=== PATIENT | female | born 1965 | race Caucasian/White ===

== ENCOUNTER 2019-01-07 01:16 | Inpatient (IN) ==
[2019-01-07] MEDS ORDERED: ZOFRAN IV ONE (02:49)
[2019-01-07] MEDS ORDERED: LR 1,000 ML IV ONE (02:49)
[2019-01-07 03:14] LABS: EOS# 0.01 X1000 (0.0-0.7); EOS% 0.1 % (0.0-10.0); HEMATOCRIT 31.3 % (37.0-47.0); HEMOGLOBIN 10.7 g/dL (12.0-16.0); IMM GRAN# 0.03 X1000 (0.0-0.04); IMM GRAN% 0.3 % (0.0-0.5); LYMPH# 0.24 X1000 (1.2-3.4); LYMPH% 2.4 % (20.5-51.1); MCH 31.9 PG (27-31); MCHC 34.2 g/dL (33-37); MCV 93.4 FL (81-99); MONO% 6.1 % (1.7-9.3); MPV 9.7 FL (7.4-10.4); NEUT# 8.98 X1000 (1.4-6.5); NEUT% 91.1 % (42.2-75.2); PLT 187 X1000 (130-400); RBC 3.35 XMIL (4.2-5.4); RDW 14.9 % (11.5-14.5); WBC 9.86 X1000 (4.8-10.8)
[2019-01-07 03:18] LABS: ESTIMATED GFR > 60
[2019-01-07 03:23] LABS: AGAP 12; ALBUMIN 2.7 g/dL (3.5-5.0); ALKALINE PHOSPHATASE 167 U/L (32-104); BUN 6 mg/dL (8-22); CALCIUM 7.5 mg/dL (8.8-10.2); CHLORIDE 103 mmol/L (98-107); COSMO 281; CREATININE 0.7 mg/dL (0.5-0.9); GLUCOSE 131 mg/dL (70-104); GOT 31 U/L (10-30); GPT 15 U/L (10-36); MAGNESIUM 1.5 mg/dL (1.5-2.7); SODIUM 141 mmol/L (136-145); TCO2 26 mmol/L (25-35)
[2019-01-07 03:33] LABS: POTASSIUM 2.4 mmol/L (3.5-5.1)
--- NOTE | 2019-01-07 04:01 | PROVIDER DOCUMENTATION ---
HPI-General Adult - General Chief Complaint: Nausea/Vomiting Stated Complaint: N/V Time Seen by Provider: 01/07/19 02:47 Source: patient, family Allergies/Adverse Reactions: Patient Allergies Allergy/AdvReac Type Severity Reaction Status Date / Time No Known Allergies Allergy Verified 01/15/18 11:08 Home Medications: Home Medication List Medication Instructions Recorded Confirmed Last Taken Type Fluticasone/Salmet 250/50 INH 1 puff INH RTBID #1 inhaler 01/18/18 01/07/19 Unknown Rx [Advair 250/50 Diskus] Tiotropium [place] Inhaler 1 puff INH RTDAILY #1 inhaler 01/18/18 Unknown Rx [Spiriva] Abacavir/Dolutegravir/Lamivudi 1 ea PO DAILY 01/07/19 01/07/19 Unknown History [Triumeq Tablet] Escitalopram Oxalate [Lexapro] 5 mg PO DAILY 01/07/19 01/07/19 Unknown History Hydroxyzine Pamoate [Vistaril] 50 mg PO HS 01/07/19 01/07/19 Unknown History Omeprazole [Prilosec] 40 mg PO DAILY 01/07/19 01/07/19 Unknown History Sulfamethoxazole/Trimethoprim 1 ea PO BID 01/07/19 01/07/19 Unknown History [Sulfamethoxazole-Tmp Ds Tablet] - History of Present Illness -Gen Adult Nature of Presenting Problems: pt reports malaise, n/v/diarrhea since noon yesterday. feels weak, perhaps fev er, sl cough, sl SOB. Denies urinary sxs, CP. Follows at [facility] in [place] for HIV suppressive meds. Review of Systems - Adult - REVIEW OF SYSTEMS - ADULT Constitutional: reports: no symptoms reported, chills Eyes: reports: no symptoms reported Ears, Nose, Mouth & Throat: reports: no symptoms reported Cardiovascular: reports: no symptoms reported. denies: chest pain, edema Respiratory: reports: see HPI, cough Gastrointestinal: reports: no symptoms reported, diarrhea, vomiting. denies: abdominal pain Genitourinary: reports: no symptoms reported Musculoskeletal: reports: no symptoms reported Integumentary: reports: no symptoms reported Neurological: reports: no symptoms reported Psychiatric: reports: no symptoms reported Endocrine: reports: no symptoms reported Hematologic/Lymphatic: reports: no symptoms reported Allergic/Immunologic: reports: no symptoms reported All Other Systems: Reviewed and Negative Past History - Adult - PAST MEDICAL HISTORY-ADULT Review of Records: reports: Nursing Assessment Review, Medications Reviewed, Social history reviewed & non-contributory. Major Childhood Illnesses: reports: other (HIV since 1989) Cardiovascular: reports: denies history Respiratory: reports: asthma, COPD, pneumonia Gastrointestinal: reports: denies history Obstetrical/Gynecological: reports: denies history Genitourinary: reports: denies history Musculoskeletal: reports: denies history Neurological: reports: denies history Psychiatric: reports: anxiety Endocrine/Immune: reports: HIV/AIDS Other Conditions: reports: denies history - PRIOR SURGERIES/PROCEDURES Surgical/Procedure History: reports: appendectomy, cholecystectomy, orthopedic (extremity) (plates in the left arm) - IMMUNIZATION STATUS Childhood Immunizations: See Nurse Assessment Flu Vaccine: See Nurse Assessment - FAMILY HISTORY Family History: reviewed, not pertinent Physical Exam-General - PHYSICAL EXAM-ADULT Initial Vital Signs Reviewed: Yes (tachy, sl fever) - CONSTITUTIONAL General Appearance: mild distress, thin - EYES Eyes: PERRL/EOMI - HEAD, EARS, NOSE, MOUTH & THROAT HENMT: normocephalic/atraumatic, moist mucous membranes - NECK Neck: non-tender, full range of motion, supple - RESPIRATORY Respiratory: lungs clear, normal breath sounds, no pleuratic chest pain, no accessory muscle use - CARDIOVASCULAR Cardiovascular: normal peripheral pulses, regular rate, rhythm, no edema, no JVD , no murmur - GASTROINTESTINAL (ABDOMEN) Abdominal Exam: normal bowel sounds, non tender, soft - MUSCULOSKELETAL Extremity: normal range of motion, non-tender, no pedal edema - SKIN Integumentary: normal color, normal turgor, warm/dry - 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, grossly normal, no motor/sensory deficits - PSYCHIATRIC Psych/Mental Status: normal mood/affect, normal thought content, normal thought process, oriented x 3 Progress - PLAN OF CARE/RESULTS Progress/Plan/Lab Results: Vital Signs - 8 hr 01/07/19 01:20 Temperature 99.8 F H Pulse Rate 124 H Respiratory Rate 20 Blood Pressure 122/70 O2 Sat by Pulse Oximetry 94 L Laboratory Results - last 24 hr 01/07/19 01/07/19 01/07/19 01:35 01:35 01:35 WBC 9.86 RBC 3.35 L Hgb 10.7 L Hct 31.3 L MCV 93.4 MCH 31.9 H MCHC 34.2 RDW Std Deviation 14.9 H Plt Count 187 MPV 9.7 Immature Gran % (Auto) 0.3 Neut % (Auto) 91.1 H Lymph % (Auto) 2.[address] [place] % (Auto) 6.1 Eos % (Auto) 0.1 Baso % (Auto) 0.0 Immature Gran # (Auto) 0.03 Neut # (Auto) 8.98 H Lymph # (Auto) 0.[address] [place] # (Auto) 0.60 H Eos # (Auto) 0.01 Baso # (Auto) 0.00 Segmented Neutrophils Cancelled Band Neutrophils Cancelled Lymphocytes Cancelled Monocytes Cancelled Eosinophils Cancelled Basophils Cancelled Metamyelocytes Cancelled Myelocytes Cancelled Promyelocytes Cancelled Nucleated RBCs Cancelled Atypical Lymphocytes Cancelled Blast Cells Cancelled Hypochromia Cancelled Vacuolization Cancelled Toxic Granulation Cancelled Dohle Bodies Cancelled Large Platelets Cancelled Polychromasia Cancelled Poikilocytosis Cancelled Basophilic Stippling Cancelled Anisocytosis Cancelled Microcytosis Cancelled Macrocytosis Cancelled Spherocytes Cancelled Sickle Cells Cancelled Target Cells Cancelled Ovalocytes Cancelled Stomatocytes Cancelled [place] Bodies Cancelled Edgar Cells Cancelled Unidentified Cells Cancelled Schistocytes Cancelled Sodium 141 Potassium 2.4 L* Chloride 103 Carbon Dioxide 26 Anion Gap 12 BUN 6 L Creatinine 0.7 Estimated GFR/1.73 m2 > 60 BUN/Creatinine Ratio 9 Glucose 131 H Calculated Osmolality 281 Calcium 7.5 L Magnesium 1.5 Total Bilirubin 0.40 AST 31 H ALT 15 Alkaline Phosphatase 167 H Troponin T Total Protein 7.0 Albumin 2.7 L Globulin 4.0 Albumin/Globulin Ratio 1.0 Plasma Lactate 1.3 01/07/19 01:35 WBC RBC Hgb Hct MCV MCH MCHC RDW Std Deviation Plt Count MPV Immature Gran % (Auto) Neut % (Auto) Lymph % (Auto) [place] % (Auto) Eos % (Auto) Baso % (Auto) Immature Gran # (Auto) Neut # (Auto) Lymph # (Auto) [place] # (Auto) Eos # (Auto) Baso # (Auto) Segmented Neutrophils Band Neutrophils Lymphocytes Monocytes Eosinophils Basophils Metamyelocytes Myelocytes Promyelocytes Nucleated RBCs Atypical Lymphocytes Blast Cells Hypochromia Vacuolization Toxic Granulation Dohle Bodies Large Platelets Polychromasia Poikilocytosis Basophilic Stippling Anisocytosis Microcytosis Macrocytosis Spherocytes Sickle Cells Target Cells Ovalocytes Stomatocytes [place] Bodies [place] Cells Unidentified Cells Schistocytes Sodium Potassium Chloride Carbon Dioxide Anion Gap BUN Creatinine Estimated GFR/1.73 m2 BUN/Creatinine Ratio Glucose Calculated Osmolality Calcium Magnesium Total Bilirubin AST ALT Alkaline Phosphatase Troponin T < 0.010 Total Protein Albumin Globulin Albumin/Globulin Ratio Plasma Lactate Orders Category Date Time Status Cardiac Monitoring DIRECTED Care 01/07/19 02:47 Active Saline Loc NOW Care 01/07/19 02:47 Active CHEST-2 VIEWS [RAD] Stat Exams 01/07/19 02:49 Taken BLOOD CULTURE [BLDCUL] Stat Lab 01/07/19 02:54 Ordered CBC WITH ELECTRONIC DIFF [HEME] Stat Lab 01/07/19 01:35 Completed CD4-CD8 RATIO [HH] Stat Lab 01/07/19 03:10 Received COMPREHENSIVE METABOLIC PANEL [CHEM] Stat Lab 01/07/19 01:35 Completed LACTATE, PLASMA [CHEM] Stat Lab 01/07/19 01:35 Completed MAGNESIUM [CHEM] Stat Lab 01/07/19 01:35 Completed TROPONIN T Stat Lab 01/07/19 01:[address] W/POSS RFLX CULT [URINALYSIS] Stat Lab 01/07/19 02:49 Uncollected URINE DRUG SCREEN PL Stat Lab 01/07/19 02:49 Uncollected Lactated Ringers Inj [Lr] 1,000 ml Med 01/07/19 02:49 Discontinued IV 999 mls/hr Ondansetron [Zofran] Med 01/07/19 02:49 Discontinued 4 mg IV NOW ONE EKG [EKG] Stat Ther 01/07/19 02:48 Ordered Result Diagrams: 01/07/19 01:35 01/07/19 01:35 - EKG 1 Time of EKG reading by physician:: 03:17 EKG Read and Signed by:: Aston Benito EKG Interpretation (*Must complete 3 of following elements*): Abnormal Rate: 109 Rhythm: SINUS [place]: normal QRS: normal [place] Interval: prolonged (QTc 579) ST Wave: non-specific ST changes - XRAY 1 XRAY Study: Chest Impression: Abnormal (EP READING: NODULAR INFILTRATE RIGHT BASE.) - CONSULTS/PCP/HOSPITALIST Notification #1 *Consult/PCP/Hospitalist*: DR JOHNSON Time Discussed: 05:12 Consult Disposition: Admit Departure - Departure Date of Disposition Decision: 01/07/19 Time of Disposition Decision: 05:12 DIAGNOSIS: RLL pneumonia, Dyspnea, HIV disease, COPD exacerbation, Hypokalemia Disposition: ADMITTED INPATIENT 09 Certified Medical Emergency: Emergent Condition: Stable Referrals and Follow-Ups: None,PCP [Primary Care Provider] - - Critical Care Note This patient required my direct & personal management of CC.: No Attestation - Physician/ HAIR Attestation The physician spent face to face time with patient:: Yes Advanced Practice Provider documentation review:: Supervising physician onsite and consulted in the evaluation and care of this patient. The physician did have a face to face encounter with the patient.
[2019-01-07] MEDS ORDERED: POTASSIUM CHLORIDE 40 MEQ/SWI 40 MEQ/100 ML IVPB IV ONE (04:08)
[2019-01-07] MEDS ORDERED: VANCOMYCIN 1 GM/NS 1 GM/250 ML IVPB IV ONE (04:40)
[2019-01-07] MEDS ORDERED: ZOSYN 3.375 GM in NS 50 ML IV ONE (04:40)
--- NOTE | 2019-01-07 04:46 | EKG Report ---
Test Performed on : 01/07/2019 03:14:36 AM Test Reason : sob, nausea Blood Pressure : / mmHG Vent. Rate : 109 BPM Atrial Rate : 109 BPM P-R Int : 132 ms QRS Dur : 090 ms QT Int : 430 ms P-R-T Axes : 072 033 073 degrees QTc Int : 579 ms Sinus tachycardia. Nonspecific ST and T wave abnormality Prolonged QT Abnormal ECG When compared with ECG of 23-SEP-2018 20:35, No significant change was found Unconfirmed Result
[2019-01-07] MEDS ORDERED: NS 1,000 ML IV ONE ×2 (05:11→08:45)
[2019-01-07] MEDS ORDERED: PERCOCET-5 PO ONE (05:25)
[2019-01-07] MEDS ORDERED: POTASSIUM CHLORIDE 20 MEQ in LR 1,000 ML IV ONE (05:27)
[2019-01-07] MEDS ORDERED: ZOFRAN IV PRN (05:27)
--- NOTE | 2019-01-07 06:13 | Diag Imaging Result Doc PS360 ---
EXAM: CHEST-2 VIEWS HISTORY: short of breath TECHNIQUE: Chest two views COMPARISON: 12/04/2017 FINDINGS: The lungs are hyperexpanded. Increased AP diameter to the chest. The heart is not enlarged. The vessels are small. There are no infiltrates. No pleural effusions. IMPRESSION: Emphysema. Follow-up films suggested if symptoms persist to ensure there is no right basilar infiltrate. Electronically signed by Eliel Plunkett 01/07/2019 6:11 AM
[2019-01-07 06:41] LABS: BILIRUBIN URINE NEGATIVE (NEGATIVE); BLOOD URINE NEGATIVE (NEGATIVE); CLARITY CLEAR (CLEAR); COLOR YELLOW; GLUCOSE URINE NEGATIVE (NEGATIVE); KETONE URINE NEGATIVE (NEGATIVE); LEUKOCYTES URINE 1+ (NEGATIVE); NITRITE URINE NEGATIVE (NEGATIVE); PH URINE 6.5; PROTEIN URINE 1+(30 mg/dL) mg/dL (NEGATIVE); URINE RBC <10 /HPF (<10); UROBILINOGEN URINE NORMAL
[2019-01-07 06:42] LABS: URINE BACTERIA 1+ /HFP; URINE CAST NONE SEEN /LPF; URINE CRYSTAL NONE SEEN /HPF; URINE EPITHELIAL CELLS >10 /HPF (<10); URINE SOURCE CLEAN CATCH; URINE YEAST PRESENT /HPF
[2019-01-07 06:43] LABS: UR AMPHETAMINES QUAL NONE DETECTED (NONE DETECT); UR BARBITUATES QUAL NONE DETECTED (NONE DETECT); UR BENZODIAZEPIN QUAL NONE DETECTED (NONE DETECT); UR CANNABINOIDS QUAL NONE DETECTED (NONE DETECT); UR COCAINE QUAL PRESUMPTIVE POSITIVE (NONE DETECT); UR METHADONE QUAL NONE DETECTED (NONE DETECT); UR METHAMPHETAMINE QUAL NONE DETECTED (NONE DETECT); UR OPIATES QUAL NONE DETECTED (NONE DETECT); UR OXYCODONE QUAL NONE DETECTED (NONE DETECT); UR PCP QUAL NONE DETECTED (NONE DETECT); UR PROPOXYPHENE QUAL NONE DETECTED (NONE DETECT); UR TCA QUAL NONE DETECTED (NONE DETECT)
[2019-01-07] MEDS: TYLENOL PO PRN ×2 (07:02→15:22)
[2019-01-07] MEDS: TORADOL IV PRN (07:02)
[2019-01-07] MEDS: DUONEB (A & A) INH SCH ×5 (07:20→23:43)
[2019-01-07] MEDS ORDERED: VANCOMYCIN IV PER PHARMACY MISC SCH (09:00)
[2019-01-07 09:40] LABS: BASO# 0.01 X1000 (0.0-0.2); BASO% 0.1 % (0.0-0.8); EOS# 0.06 X1000 (0.0-0.7); EOS% 0.5 % (0.0-10.0); HEMATOCRIT 28.5 % (37.0-47.0); HEMOGLOBIN 9.6 g/dL (12.0-16.0); IMM GRAN# 0.03 X1000 (0.0-0.04); IMM GRAN% 0.3 % (0.0-0.5); LYMPH# 0.22 X1000 (1.2-3.4); MCHC 33.7 g/dL (33-37); MONO# 0.16 X1000 (0.11-0.59); MONO% 1.4 % (1.7-9.3); MPV 9.5 FL (7.4-10.4); NEUT# 10.66 X1000 (1.4-6.5); NEUT% 95.7 % (42.2-75.2); PLT 155 X1000 (130-400); WBC 11.14 X1000 (4.8-10.8)
--- NOTE | 2019-01-07 09:59 | HISTORY AND PHYSICAL ---
PRIMARY CARE PHYSICIAN: Listed as none. Followed at the [facility] in [place] for her HIV suppressive medications. CHIEF COMPLAINT: Nausea, vomiting, diarrhea, fever, chills, and body aches that began 2 days ago and progressively worsened. HISTORY OF PRESENTING ILLNESS: This is a 53-year-old female who presents to [facility] ER with complaints of nausea, vomiting, diarrhea, fever, chills, body aches, weakness for the past couple of days that progressively worsened. She is noted to be HIV positive and is followed at the [facility] in [place], but also has a history of being medically noncompliant. She also has a history of cocaine abuse, and her drug screen is currently presumptive positive for cocaine. When she arrived to the emergency room, she had a temperature of 99.8 degrees. This morning around 7 a.m., she had a temperature of 101.6 degrees, heart rate of 117. She is saturating 94% to 95% on room air. Her laboratory data showed a potassium of 2.4. Her plasma lactate was 1.3. White blood cell count of 9.86. Urinalysis was negative. Her chest x-ray was read by ER physician as a right lower lobe pneumonia. Radiology read it as an impression of emphysema, with followup films suggested if symptoms persist, to ensure there is no right basilar infiltrate. When she arrived around 1:20 a.m., her blood pressure was 122/70. This morning, we obtained a manual blood pressure of 80/48. She was initially admitted to the medical unit here at [place], but we are now going to transfer her to the intensive care unit. I am giving 1 L of normal saline bolus at this time, and will continue to monitor. PAST MEDICAL HISTORY: HIV positive, medical noncompliance, cocaine dependence, and depression. PAST SURGICAL HISTORY: Appendectomy, cholecystectomy, and an ORIF of left arm. FAMILY HISTORY: Reviewed and noncontributory. SOCIAL HISTORY: She lives with a friend. Smokes a pack of cigarettes a day. Denies any alcohol use, and last used cocaine 3 to 4 days ago, but states this is not a daily use for her and is the first time she has used in several months. ALLERGIES: She has no known drug allergies. HOME MEDICATIONS: She takes Triumeq 600 mg/50/300 p.o. daily, Lexapro 5 mg p.o. daily, Advair 250/50 one inhalation b.i.d., Vistaril 50 mg p.o. at bedtime will be held, omeprazole 40 mg p.o. daily. We will hold her Bactrim DS b.i.d., and confirm her Spiriva dosage. IMAGING AND LABORATORY DATA: Laboratory data showed a white blood cell count of 9.86, a hemoglobin of 10.7, hematocrit 31.3, platelets 187,000. Sodium 141, potassium 2.4, chloride 103, CO2 of 26, BUN of 6, creatinine 0.7, glucose 131. Magnesium of 1.5. Troponin less than 0.010 with plasma lactate of 1.3. Urinalysis was negative. Urine drug screen was presumptive positive for cocaine. Chest x-ray per ER physician was read as a right lower lobe pneumonia. Radiology read showed an impression of emphysema. Followup films suggested if symptoms persist to ensure that there is no right basilar infiltrate. EKG: Sinus tachycardia at 109. REVIEW OF SYSTEMS: She was positive for subjective fever, chills, body aches. Denied any chest pain. No cough or shortness of breath. She did have nausea, vomiting, and diarrhea. Denied any burning or hurting with urination. PHYSICAL EXAMINATION: VITAL SIGNS: On arrival, she had a temperature of 99.8 degrees, pulse 124, respirations 20, blood pressure 122/70, saturating 94% on room air. Currently, a manual blood pressure shows 80/48 with a heart rate of 120, saturating 95% on room air. GENERAL: This is a 53-year-old female, lying in the bed, answers questions appropriately. HEENT: Normocephalic, atraumatic. Normal ENT inspection. Oropharynx and nares are clear. Eyes: Pupils are equal, round, and reactive to light and accommodation. Extraocular movements are intact. NECK: Normal inspection. Normal range of motion. LUNGS: Clear to auscultation bilaterally with equal lung expansion and chest wall movement. HEART: Regular rate and rhythm. No murmurs, rubs, or gallops. ABDOMEN: Soft, nontender, nondistended. Bowel sounds are present x4 quadrants. MUSCULOSKELETAL: She has 5/5 strength x4 extremities. NEUROLOGICAL: Cranial nerves II through XII appear grossly intact. ASSESSMENT: 1. Sepsis. 2. Right lower lobe pneumonia. 3. Hypokalemia. 4. Hypotension. 5. Human immunodeficiency virus positive. 6. Cocaine abuse. 7. Medical noncompliance. 8. Tobacco abuse. PLAN: She was initially admitted to the medical unit at [place]. We are now going to transfer her to the intensive care unit. O2 per protocol. We are checking an HIV genotype, HIV-1 RNA, and urine culture. Will recheck a CBC, BMP. We are going to check a CT of the thorax without contrast today. We are going to give her a bolus of normal saline 1000 mL x1 now, then at 150 mL an hour. Will recheck blood pressure once the bolus is completed. Will give her Zosyn 3.375 grams IV every 6 hours, vancomycin per pharmacy protocol, DuoNebs every 4 hours. Continue home medications as previously identified. We are also going to check a hepatitis profile. Dictated by MADHAVI Gutierrez for Willy Hammonds MD Addendum: Addendum: Patient seen and examined by myself. Agree with MADHAVI note. It reflects my assessment and plan. Patient is being admitted to hospital for sepsis. She has developed septic shock so her blood pressure is 80/60. Will start broad spectrum antibiotics. Her WBC is not reliable because of HIV. Will start IV fluids. Will check CD3/CD4 and viral load. Will send her to ICU for better monitoring. cc: MADHAVI Gutierrez MD [facility]LANDShannon
--- NOTE | 2019-01-07 10:42 | Diag Imaging Result Doc PS360 ---
EXAM: CT THORAX W/O CONTRAST HISTORY: pna TECHNIQUE: CT chest without contrast COMPARISON: 01/15/2018 FINDINGS: No pleural effusions. No cardiomegaly. No thoracic aortic aneurysm. Mild to moderate atherosclerosis. There are small mediastinal nodes. Severe emphysema. No consolidation. Resolution of the prior infiltrates. Minimal increased interstitial markings in the lower lungs likely representing minimal scarring. Limited images through the upper abdomen reveal fatty infiltration of the liver and a nonobstructing right upper pole renal stone. IMPRESSION: Severe emphysema. No definite pneumonia. This exam was performed using automated exposure control, adjustment of mA or kV according to patient size, and/or use of iterative reconstruction technique. Electronically signed by Eliel Plunkett 01/07/2019 10:40 AM
[2019-01-07 11:22] LABS: ESTIMATED GFR > 60
[2019-01-07 11:24] LABS: AGAP 15; BUN 8 mg/dL (8-22); CALCIUM 7.1 mg/dL (8.8-10.2); CHLORIDE 103 mmol/L (98-107); COSMO 277; CREATININE 0.9 mg/dL (0.5-0.9); GLUCOSE 121 mg/dL (70-104); SODIUM 139 mmol/L (136-145); TCO2 22 mmol/L (25-35)
[2019-01-07 11:29] LABS: POTASSIUM 2.6 mmol/L (3.5-5.1)
[2019-01-07 12:01] LABS: ANISOCYTOSIS 1+; BANDS 4 % (0-1); LYMPHS 4 % (21-51); MONO 3 % (1-9); SEGS 89 % (42-75)
[2019-01-07] MEDS: NS 1,000 ML IV SCH (14:11)
[2019-01-07] MEDS: ZOSYN 3.375 GM in NS 50 ML IV SCH ×2 (14:11→21:32)
[2019-01-07] MEDS: LEXAPRO PO SCH (14:11)
[2019-01-07] MEDS: PATIENT'S OWN MED PO SCH (14:11)
[2019-01-07] MEDS ORDERED: NS 500 ML IV ONE (15:15)
[2019-01-07] MEDS: POTASSIUM CHLORIDE 60 MEQ in NS 500 ML IV SCH (15:30)
[2019-01-07 15:43] LABS: BE -1.4 mmoll (-3.0-3.0); BLOOD TYPE ARTERIAL; HCO3-(ACT) 23.8 mmoll (20.0-26.0); METHB 0.1 % (0.0-1.5); O2(CT) 12.2 mL/dL (15.0-23.0); O2HB 93.6 % (95.0-99.0); PCO2(98.6) 32 mmHg (35-45); PO2(98.6) 70 mmHg (60-100); SAMPLE BLOOD; SAO2 94.4 % (95.0-100.0); THB 9.2 g/dL (11.5-17.4); pH(98.6) 7.45 (7.35-7.45)
[2019-01-07 15:45] LABS: ALLEN TEST YES; MODALITY ROOM AIR
[2019-01-07] MEDS ORDERED: LEVOPHED 8 MG in D5 1/2 NS 250 ML IV SCH (16:45)
[2019-01-07] MEDS: ADVAIR 250/50 DISKUS INH SCH (20:10)
[2019-01-08] MEDS: NS 1,000 ML IV SCH ×4 (00:22→20:17)
[2019-01-08] MEDS: ZOSYN 3.375 GM in NS 50 ML IV SCH ×4 (02:55→20:20)
[2019-01-08] MEDS: DUONEB (A & A) INH SCH ×5 (03:40→20:20)
[2019-01-08] MEDS: POTASSIUM CHLORIDE 60 MEQ in NS 500 ML IV SCH (03:52)
[2019-01-08] MEDS: VANCOMYCIN 1 GM/NS 1 GM/250 ML IVPB IV SCH (06:00)
[2019-01-08] MEDS: PRILOSEC PO SCH (06:00)
[2019-01-08 06:27] LABS: BE -5.4 mmoll (-3.0-3.0); BLOOD TYPE ARTERIAL; HCO3-(ACT) 20.7 mmoll (20.0-26.0); O2(CT) 11.9 mL/dL (15.0-23.0); O2HB 94.5 % (95.0-99.0); PCO2(98.6) 31 mmHg (35-45); PO2(98.6) 76 mmHg (60-100); SAMPLE BLOOD; SAO2 95.1 % (95.0-100.0); THB 8.9 g/dL (11.5-17.4); pH(98.6) 7.39 (7.35-7.45)
[2019-01-08 06:28] LABS: ALLEN TEST YES; MODALITY ROOM AIR
[2019-01-08] MEDS: TORADOL IV PRN ×2 (06:38→20:16)
[2019-01-08 07:44] LABS: BASO# 0.01 X1000 (0.0-0.2); BASO% 0.2 % (0.0-0.8); EOS# 0.11 X1000 (0.0-0.7); EOS% 2.1 % (0.0-10.0); HEMATOCRIT 28.4 % (37.0-47.0); HEMOGLOBIN 9.1 g/dL (12.0-16.0); IMM GRAN# 0.01 X1000 (0.0-0.04); IMM GRAN% 0.2 % (0.0-0.5); LYMPH# 0.47 X1000 (1.2-3.4); LYMPH% 9.1 % (20.5-51.1); MCH 31.2 PG (27-31); MCV 97.3 FL (81-99); MONO# 0.38 X1000 (0.11-0.59); MONO% 7.4 % (1.7-9.3); MPV 10.1 FL (7.4-10.4); NEUT# 4.18 X1000 (1.4-6.5); PLT 136 X1000 (130-400); RBC 2.92 XMIL (4.2-5.4); RDW 15.1 % (11.5-14.5); WBC 5.16 X1000 (4.8-10.8)
[2019-01-08 07:45] LABS: ESTIMATED GFR > 60
[2019-01-08 08:02] LABS: AGAP 9; BUN 7 mg/dL (8-22); CHLORIDE 116 mmol/L (98-107); COSMO 286; CREATININE 0.7 mg/dL (0.5-0.9); GLUCOSE 83 mg/dL (70-104); POTASSIUM 2.6 mmol/L (3.5-5.1); SODIUM 145 mmol/L (136-145); TCO2 20 mmol/L (25-35)
[2019-01-08 08:03] LABS: CALCIUM 6.4 mg/dL (8.8-10.2)
[2019-01-08] MEDS: ADVAIR 250/50 DISKUS INH SCH ×2 (08:17→20:20)
[2019-01-08] MEDS: LEXAPRO PO SCH (09:38)
[2019-01-08] MEDS: PATIENT'S OWN MED PO SCH (09:38)
[2019-01-08] MEDS ORDERED: CALCIUM GLUCONATE 2 GM in NS 100 ML IV ONE (10:00)
[2019-01-08 10:09] LABS: INR 1.29; PROTIME 16.7 Seconds (11.0-16.0)
[2019-01-08] MEDS: POTASSIUM CHLORIDE IV SCH ×2 (10:10→17:59)
[2019-01-08] MEDS: NS IV SCH ×2 (10:10→17:59)
--- NOTE | 2019-01-08 10:20 | PROGRESS NOTE ---
DATE: 01/08/2019 SUBJECTIVE: Patient reports feeling fine. Denies any fever or chills. OBJECTIVE: Vital Signs: Temperature 98.6 degrees, heart rate 80, respiratory rate 21, blood pressure 113/62, O2 saturation 96% on room air. General Examination: This is a chronically ill- looking, very malnourished, 53-year-old, female lying in bed, in no acute distress. HEENT: Head is normocephalic and atraumatic. Mucous membranes are dry. Neck: No JVD noted. No carotid bruits. No lymphadenopathy. No thyromegaly. Cardiovascular Examination: S1 and S2 heard. No murmurs, gallops, or rubs. Regular rate and rhythm. Respiratory Examination: Clear bilaterally to auscultation. Decreased breath sounds globally. The patient is not using any accessory muscles or having work of breathing. Abdomen: Soft, nontender to palpation. Bowel sounds present. No organomegaly. Extremities: No clubbing, cyanosis, or edema. Peripheral pulses in both legs. Neurological Examination: The patient is alert and oriented x3. Moves 4 extremities. Laboratory Data: White cell count 5.16, hemoglobin 9.1, hematocrit 28.4, platelets 136,000. The ABG shows pH of 7.39 with pCO2 31 and PO2 of 76. Potassium 2.6, calcium 6.4. ASSESSMENT AND PLAN: 1. Septic shock secondary to right lower lobe pneumonia. Patient's vasopressors (in this case, Levophed) had been stopped yesterday. She is on intravenous fluids at 150 mL per hour. We are going to decrease it to 75 mL per hour considering that this patient's weight is 96 pounds only. We do not want to overload her. The patient currently is on vancomycin and Zosyn. White cell count is within normal limits today. We will continue with the same management. 2. Hypokalemia. The patient has been having diarrhea and that explains why she has low potassium. She received, yesterday, 60 mEq of potassium intravenously. Potassium is still 2.6. We will provide 2 packs of 60 mEq of potassium every 8 hours. We will check BMP tomorrow. 3. Human immunodeficiency virus infection. We have ordered CD3, CD4 count and viral load too. The patient apparently is not on any medications for human immunodeficiency virus. We will continue to monitor. 4. Cocaine abuse. Aware. 5. Medical noncompliance. Aware. 6. Tobacco abuse. Aware. 7. Disposition. At this point, we are going to monitor this patient closely here in the intensive care unit. cc: Willy Hammonds MD
[2019-01-08] MEDS ORDERED: CALCIUM GLUCONATE ONE (12:04)
[2019-01-08] MEDS ORDERED: NS 250 ML ONE (12:12)
[2019-01-08 12:51] LABS: HEPATITIS PROFILE ACUTE SEE COMMENTS
[2019-01-08 16:24] LABS: C DIFF TOXIN PL NEGATIVE (NEGATIVE)
[2019-01-08] MEDS: NON-FORMULARY MED PO SCH (16:51)
[2019-01-08] MEDS: MYCOSTATIN SUSP PO SCH ×2 (16:52→20:17)
[2019-01-09] MEDS: DUONEB (A & A) INH SCH ×7 (00:10→22:34)
[2019-01-09] MEDS: ZOSYN 3.375 GM in NS 50 ML IV SCH (03:00)
[2019-01-09 06:20] LABS: BASO# 0.01 X1000 (0.0-0.2); BASO% 0.3 % (0.0-0.8); EOS# 0.12 X1000 (0.0-0.7); EOS% 3.8 % (0.0-10.0); ESTIMATED GFR > 60; HEMATOCRIT 24.5 % (37.0-47.0); HEMOGLOBIN 7.9 g/dL (12.0-16.0); IMM GRAN# 0.01 X1000 (0.0-0.04); IMM GRAN% 0.3 % (0.0-0.5); MCH 31.3 PG (27-31); MCHC 32.2 g/dL (33-37); MCV 97.2 FL (81-99); MONO# 0.28 X1000 (0.11-0.59); MONO% 8.9 % (1.7-9.3); MPV 9.9 FL (7.4-10.4); NEUT# 2.21 X1000 (1.4-6.5); NEUT% 70.7 % (42.2-75.2); RBC 2.52 XMIL (4.2-5.4); RDW 15.6 % (11.5-14.5); WBC 3.13 X1000 (4.8-10.8)
[2019-01-09 06:26] LABS: AGAP 7; BUN 5 mg/dL (8-22); CALCIUM 6.6 mg/dL (8.8-10.2); CHLORIDE 122 mmol/L (98-107); COSMO 288; CREATININE 0.6 mg/dL (0.5-0.9); GLUCOSE 73 mg/dL (70-104); POTASSIUM 3.3 mmol/L (3.5-5.1); SODIUM 147 mmol/L (136-145); TCO2 18 mmol/L (25-35)
[2019-01-09 06:30] LABS: PLT 87 X1000 (130-400)
[2019-01-09] MEDS: PRILOSEC PO SCH (06:30)
[2019-01-09] MEDS: VANCOMYCIN 1 GM/NS 1 GM/250 ML IVPB IV SCH (06:31)
[2019-01-09] MEDS: NS 1,000 ML IV SCH ×2 (06:37→13:37)
[2019-01-09] MEDS ORDERED: NS IV ONE (08:00)
[2019-01-09] MEDS ORDERED: CALCIUM GLUCONATE 2 GM in NS 100 ML IV ONE (08:00)
[2019-01-09] MEDS ORDERED: POTASSIUM CHLORIDE IV ONE (08:00)
[2019-01-09] MEDS: ADVAIR 250/50 DISKUS INH SCH ×2 (08:12→19:11)
[2019-01-09] MEDS: NON-FORMULARY MED PO SCH (09:09)
[2019-01-09] MEDS: TUMS EXTRA STRENGTH PO SCH ×3 (09:09→18:57)
[2019-01-09] MEDS: MYCOSTATIN SUSP PO SCH ×4 (09:09→21:12)
[2019-01-09] MEDS: LEXAPRO PO SCH (09:17)
--- NOTE | 2019-01-09 09:56 | PROGRESS NOTE ---
DATE: 01/09/2019 SUBJECTIVE: The patient reports feeling fine. Sometimes she reports feeling mildly short of breath. No fever or chills noted. OBJECTIVE: Vital Signs: Temperature 97.9 degrees, heart rate 84, respiratory rate 20, blood pressure 133/83, O2 saturation 100% on room air. General: This is a chronically ill-appearing, very malnourished, and disheveled, 53-year-old, female, looking older than her stated age, lying in bed in no acute distress. HEENT: Head is normocephalic, atraumatic. Mouth is a little bit dry. Neck: No JVD noted. No carotid bruits. No lymphadenopathy. No thyromegaly. Cardiovascular: S1, S2 heard. No murmurs, gallops, or rubs. Regular rate and rhythm. Respiratory: Decreased breath sounds globally. Minimal coarse breath sounds in both pulmonary bases. Patient not using any accessory muscles or having work of breathing. Abdomen: Soft, nontender to palpation. Bowel sounds present. No organomegaly. Extremities: No clubbing, cyanosis, or edema. Peripheral pulses present in both legs. Neurological: The patient is alert and oriented x3. Moves 4 extremities. LABORATORY DATA: CBC shows white cell count 3.13, hemoglobin 7.9, hematocrit 24.5, platelets 87,000. INR was 1.29. BMP shows potassium 3.3, sodium 147, creatinine 0.6, calcium 6.6. ASSESSMENT AND PLAN: 1. Sepsis secondary to right lower lobe pneumonia. The patient, at admission, was treated for right lower lobe pneumonia as per emergency room physician. The x-rays show emphysema, and the CT of the chest shows also severe emphysema, but no definite pneumonia. Considering she has a mildly elevated white cell count and she was very short of breath, we decided to start the patient on vancomycin and Zosyn. Clinically, this patient looks stable, although sometimes she complains of shortness of breath. At this point, she is on normal saline at 75 mL per hour. Considering her weight and fluids provided we are going to stop fluids. 2. Human immunodeficiency virus infection. We have checked CD3, C4, and CD8. Unfortunately, those numbers are very low. Actually, CD4 count absolute is 2, with absolute CD8 of 190. We also have checked viral load, and it is greater than 600,000 copies. Considering also that all 3 lines, including white cell count, hemoglobin, and platelets are going down, I think bone marrow can be compromised because of this uncontrolled human immunodeficiency virus infection because of not being compliant with medication. I prefer to send this patient to [facility] to be evaluated by Infectious Disease and also Hematology/Oncology. I do not think this patient needs to go to an intensive care unit bed. 3. Hypokalemia. According to the patient, she has had diarrhea profuse for the last 2 days. I think that explains the hypokalemia. We have repeated potassium yesterday with 60 mEq intravenously twice daily. The potassium is still low. At this point, I am planning to replete it with 60 mEq more that is going to be diluted in 1 liter of normal saline. 4. Thrombocytopenia. As we mentioned before, all blood lines are getting down. Considering that this patient has been on Zosyn, we are going to stop this medication and change it to cefepime, and will go from there. 5. Cocaine abuse. Aware. 6. Tobacco abuse. Aware. 7. Disposition. At this point, the patient is going to be transferred to a regular floor while waiting for a bed in [facility]. cc: Willy Hammonds MD MTDD
[2019-01-09] MEDS: MAXIPIME 1 GM in NS 50 ML IV SCH ×2 (10:12→21:12)
[2019-01-09] MEDS ORDERED: LASIX IV ONE (13:35)
[2019-01-10] MEDS: DUONEB (A & A) INH SCH ×6 (03:16→23:21)
[2019-01-10 06:12] LABS: AGAP 10; BUN 4 mg/dL (8-22); CALCIUM 7.3 mg/dL (8.8-10.2); CHLORIDE 109 mmol/L (98-107); COSMO 282; CREATININE 0.6 mg/dL (0.5-0.9); ESTIMATED GFR > 60; GLUCOSE 72 mg/dL (70-104); SODIUM 144 mmol/L (136-145); TCO2 25 mmol/L (25-35)
[2019-01-10 06:15] LABS: BASO# 0.01 X1000 (0.0-0.2); BASO% 0.3 % (0.0-0.8); EOS# 0.18 X1000 (0.0-0.7); EOS% 5.7 % (0.0-10.0); HEMATOCRIT 26.4 % (37.0-47.0); HEMOGLOBIN 8.4 g/dL (12.0-16.0); IMM GRAN# 0.01 X1000 (0.0-0.04); IMM GRAN% 0.3 % (0.0-0.5); LYMPH# 0.71 X1000 (1.2-3.4); LYMPH% 22.3 % (20.5-51.1); MCH 30.5 PG (27-31); MCHC 31.8 g/dL (33-37); MONO% 12.6 % (1.7-9.3); MPV 10.1 FL (7.4-10.4); NEUT# 1.87 X1000 (1.4-6.5); NEUT% 58.8 % (42.2-75.2); PLT 116 X1000 (130-400); RBC 2.75 XMIL (4.2-5.4); RDW 15.3 % (11.5-14.5); WBC 3.18 X1000 (4.8-10.8)
[2019-01-10] MEDS: VANCOMYCIN 1 GM/NS 1 GM/250 ML IVPB IV SCH (06:20)
[2019-01-10] MEDS: PRILOSEC PO SCH (06:20)
[2019-01-10] MEDS ORDERED: POTASSIUM CHLORIDE IV ONE (07:17)
[2019-01-10] MEDS ORDERED: NS IV ONE (07:17)
[2019-01-10] MEDS ORDERED: CALCIUM GLUCONATE 2 GM in NS 100 ML IV ONE (07:18)
[2019-01-10] MEDS: ADVAIR 250/50 DISKUS INH SCH ×2 (08:30→19:44)
[2019-01-10] MEDS: LEXAPRO PO SCH (08:32)
[2019-01-10] MEDS: MYCOSTATIN SUSP PO SCH ×4 (08:32→22:46)
[2019-01-10] MEDS: NON-FORMULARY MED PO SCH (08:32)
[2019-01-10] MEDS: TUMS EXTRA STRENGTH PO SCH ×4 (08:32→16:57)
--- NOTE | 2019-01-10 09:01 | PROGRESS NOTE ---
DATE: 01/10/2019 SUBJECTIVE: Patient reports feeling fine. Denies any fever or chills. OBJECTIVE: Vital Signs: Temperature 97.9 degrees, heart rate 116, respiratory 17, blood pressure 131/82, O2 saturation 100% on room air. General: This is a chronically ill appearing, very malnourished 53-year-old female, disheveled, lying in bed, in no acute distress. HEENT: Head is normocephalic, atraumatic Mucous membranes dry. Neck: No JVD noted. No carotid bruits. No lymphadenopathy. No thyromegaly. Cardiovascular: S1, S2 heard. No murmurs, gallops, or rubs. Regular rate and rhythm. Respiratory: Decreased breath sounds globally with minimal coarse breath sounds in both pulmonary bases. Patient is not using any accessory muscles or having work of breathing. Abdomen: Soft, nontender to palpation. Bowel sounds present. No organomegaly. Extremities: No clubbing, cyanosis, or edema. Peripheral pulses present in both legs. Neuro: Patient alert oriented x3. Moves 4 extremities. LABORATORY DATA: The white count is 3.18 hemoglobin 8.4, hematocrit 26.4, platelets 116,000. BMP shows potassium 3.0, calcium 7.3. ASSESSMENT/PLAN: 1. Sepsis secondary to right lower lobe pneumonia. As we mentioned before, at admission,the x- ray shows emphysema and the ER physician interpreted as right lower lobe pneumonia so she was started on vancomycin and Zosyn. The CT of the chest did not show any pneumonia but considering that her white cell count was mildly elevated and she was short of breath we decided to continue with both antibiotics. At this point, patient is clinically stable, not requiring any oxygen supplementation. Considering that her CD4 count is low we will continue with antibiotics. 2. HIV infection. CD4 absolute count is 2 with also low CD8 count. Viral low is greater than 600,000 copies. Also the 3 lines including white cell count hemoglobin and platelets are low and they were not low at admission I think I would like to consult Hematology Oncology and Infectious Disease. The patient is still awaiting a bed in [facility]. 3. Hypokalemia. We are going to repeat potassium. Because she received a lot of fluids she received yesterday also Lasix 60 mg IV one dosis, that explains why the potassium is low again. Will replenish it today. Will check BMP tomorrow. 4. Thrombocytopenia as we mentioned above. 5. Cocaine abuse, aware. 6. Tobacco abuse, aware. 7. Disposition. At this point, patient is still awaiting for 2nd day transfer to a regular floor in [facility]. cc: Willy Hammonds MD MTDD
[2019-01-10] MEDS: MAXIPIME 1 GM in NS 50 ML IV SCH ×2 (10:33→22:47)
[2019-01-10] MEDS ORDERED: TYLENOL PO PRN (11:03)
[2019-01-10] MEDS: ZOFRAN IV PRN ×2 (11:43→22:59)
[2019-01-10 13:59] LABS: RETIC% 0.9 % (0.8-2.1); RETIC-HE 30.2 PG (28.2-36.6)
--- NOTE | 2019-01-10 14:27 | INFECTIOUS DISEASE CONSULT REP ---
DATE: 01/10/2019 CONCLUSION: Ms. Cordoba states she came to the hospital due to nausea and vomiting, and was found to be febrile, with a temperature of 101.6. At this point, there is no specific source of infection other than her HIV infection. She has been noncompliant with her anti-retroviral therapy. She has an oral and esophageal candidiasis, which seems to be a chronic problem. RECOMMENDATIONS: At this point, she is receiving IV vancomycin and cefepime. We agree with the use of these medications. She has also been started back on her Triumiq, and continued on Nystatin swish and swallow. We will await the results of her HIV genotype which has been drawn. At this point, we will follow along with the patient and agree with current order set. These recommendations have been discussed with and recommended by Dr. Adams. PAST MEDICAL HISTORY AND REVIEW OF SYSTEMS: Constitutional: The patient states she did not have a fever at home but was complaining of nausea and vomiting, and came in the same day to the ER. She has lost weight, normally weighing between 125 and 130, and is currently 94 pounds. HEENT: Vision requires glasses. Hearing is normal without tinnitus. Endocrine: Denies diabetes or thyroid problems. Cardiovascular: Denies any chest pain or palpitations. Respiratory: History of emphysema/COPD with some cough and shortness of breath at times. GI: She has gastroesophageal reflux disease with recent nausea and vomiting, and occasional diarrhea. Positive for dysphagia and thrush. : No dysuria or flank pain. Psychiatric: She denies any anxiety but does have issues with depression. Hematology/Oncology: She has had iron deficiency anemia. Received a blood transfusion with the of her son. PAST MEDICAL HISTORY: 1. HIV positive with diagnosis almost 30 years ago. 2. Use of illicit drugs and tobacco. 3. Depression. 4. Emphysema/COPD. 5. Dysphagia w/EGD showing candidal infection. 6. Gastroesophageal reflux disease. PAST SURGICAL HISTORY/HOSPITAL ADMISSIONS: 1. Appendectomy. 2. Cholecystectomy. 3. Numerous admissions for pneumonia. 4. ORIF of the left upper extremity. INFECTIOUS DISEASE: Positive for urinary tract infections and multiple hospitalizations for pneumonia. P[employer]: 1, Para 1, AB 1 LABORATORY AND X-RAY: Today, her white count is 3.18, hemoglobin 8.4, platelet count 116,000. Creatinine is 0.6. Estimated GFR is greater than 60. On admission to the hospital, her total bilirubin was 0.4, AST 31, ALT 15, alkaline phosphatase 167. Clostridium difficile antigen was negative. Hepatitis profile was nonreactive. As far as HIV testing is concerned, viral load shows 620,000 copies and an absolute CD4 count of 2. Urine cultures showed no growth. Blood cultures have shown no growth after [address] done 3 days ago showed severe emphysema with no definite pneumonia. FAMILY HISTORY: Positive for hypertension and cancer. SOCIAL HISTORY: She lives at home with her and her son. She states she recently decreased her pack a day smoking habit to 1 to 2 cigarettes per day. She states she did a line of cocaine 3 or 4 days before admission to the ER, however had not taken any cocaine for about a year before that. Denies any alcohol or other illicit drugs. She is on disability. ALLERGIES: She states there are no allergies to food or medication. HOME MEDICATIONS: 1. Advair. 2. Triumeq. 3. Vistaril. 4. Prilosec. 5. Lexapro. 6. She is supposed to be taking Bactrim but states she has not taken it at all since it was prescribed due to difficulty swallowing. PHYSICAL EXAMINATION: Vital Signs: Temperature is 98 degrees, pulse rate 110, respiratory rate 24, blood pressure 143/77, O2 saturation 100% on room air. She is 43.7 kg and 5 feet, 3 inches. General: This is a chronically ill-appearing, middle-aged female. She is lying in bed, currently in no acute distress. HEENT: Atraumatic, normocephalic. Oral mucous membranes are pink and moist. There are some white patches noted to the oral vestibule. Conjunctivae are pale. Dentition is poor. Neck: Supple. Trachea is midline. Cardiovascular: Heart rate is regular. Respiratory: Lung sounds are diminished in the bases and have coarse wheezes in the upper and middle lobes with scattered rhonchi bilaterally. Abdomen: Soft, flat, nontender. Bowel sounds are active. Neurologic: She is awake, alert, oriented, and can ambulate independently. Integumentary: There is a PICC line to the right upper arm. Site is without edema, erythema or drainage. Thank you for allowing us to see Ms. Cordoba. Dictated by MADHAVI Owens for Chao Adams MD cc: [facility]ao Adams MD [facility]
[2019-01-10 14:50] LABS: IRON SATURATION 98 %; TIBC 90 ug/dL; TOTAL IRON 88 ug/dL (49-151); UNBOUND IRON 2 ug/dL (112-346)
[2019-01-10] MEDS ORDERED: VANCOMYCIN 1,250 MG in NS 250 ML IV SCH (22:00)
[2019-01-10] MEDS: VANCOMYCIN 1,250 MG in NS 250 ML IV SCH (22:46)
[2019-01-10] MEDS: TORADOL IV PRN (22:59)
[2019-01-11] MEDS: DUONEB (A & A) INH SCH ×6 (03:27→23:26)
[2019-01-11] MEDS: PRILOSEC PO SCH (06:03)
[2019-01-11 06:28] LABS: BASO# 0.01 X1000 (0.0-0.2); BASO% 0.4 % (0.0-0.8); EOS# 0.24 X1000 (0.0-0.7); EOS% 8.5 % (0.0-10.0); HEMATOCRIT 25.4 % (37.0-47.0); HEMOGLOBIN 8.2 g/dL (12.0-16.0); LYMPH% 24.6 % (20.5-51.1); MCH 31.2 PG (27-31); MCHC 32.3 g/dL (33-37); MCV 96.6 FL (81-99); MONO# 0.35 X1000 (0.11-0.59); MONO% 12.3 % (1.7-9.3); MPV 10.2 FL (7.4-10.4); NEUT# 1.54 X1000 (1.4-6.5); NEUT% 54.2 % (42.2-75.2); PLT 123 X1000 (130-400); RBC 2.63 XMIL (4.2-5.4); WBC 2.84 X1000 (4.8-10.8)
[2019-01-11 06:45] LABS: AGAP 8; BUN 4 mg/dL (8-22); CALCIUM 7.8 mg/dL (8.8-10.2); CHLORIDE 110 mmol/L (98-107); COSMO 279; CREATININE 0.6 mg/dL (0.5-0.9); ESTIMATED GFR > 60; GLUCOSE 74 mg/dL (70-104); POTASSIUM 3.7 mmol/L (3.5-5.1); SODIUM 142 mmol/L (136-145); TCO2 24 mmol/L (25-35)
[2019-01-11] MEDS: ADVAIR 250/50 DISKUS INH SCH ×2 (07:58→20:19)
[2019-01-11] MEDS: MAXIPIME 1 GM in NS 50 ML IV SCH ×2 (09:14→21:36)
[2019-01-11] MEDS: LEXAPRO PO SCH (09:16)
[2019-01-11] MEDS: MYCOSTATIN SUSP PO SCH ×4 (09:16→21:36)
[2019-01-11] MEDS: NON-FORMULARY MED PO SCH (09:16)
[2019-01-11] MEDS: TUMS EXTRA STRENGTH PO SCH ×3 (09:16→17:12)
--- NOTE | 2019-01-11 10:15 | PROGRESS NOTE ---
DATE: 01/11/2019 SUBJECTIVE: This patient is resting comfortably in bed. She denies any fever or chills. She is still coughing. Mild shortness of breath. OBJECTIVE: Vital Signs: Temperature 97.8 degrees, pulse 84, respiratory rate 16, blood pressure 133/76, oxygen saturation 96 on room air. HEENT: Head normocephalic. No trauma. PERRLA. Neck: Supple. No JVD. No masses. Central trachea. Chest: Decreased breath sounds globally with prolonged expiratory phase and faint scattered expiratory wheezing. Abdomen: Soft, nontender, nondistended. No hepatosplenomegaly. Extremities: No edema, no clubbing, no cyanosis. Decreased muscle mass. Neurological: The patient is alert and oriented x3. No focal deficits. LABORATORY DATA: WBC 2.8, hemoglobin 8.2, hematocrit 25.4, platelets 123,000. Sodium 142, potassium 3.7, chloride 110, bicarbonate 24, BUN 4, creatinine 0.6, glucose 74, calcium 7.8. ASSESSMENT AND PLAN: 1. Sepsis secondary to right lower lobe pneumonia. Infectious Disease Department has evaluated this patient and they will continue with the same management. She is still complaining of some shortness of breath. She is having some end-expiratory wheezing bilaterally, scattered. The cough has been improving. 2. Human immunodeficiency virus infection, with an absolute CD3, CD4 and CD8 count low. Infectious Disease Department on board. Will continue with same management for now. 3. Pancytopenia, stable. Hematology/Oncology following this patient. No changes for now. 4. Hypokalemia, resolved. 5. Cocaine abuse. This patient has been advised against drug abuse. I will continue with daily cessation education. 6. Tobacco abuse. As per the patient, she stopped smoking 6 months ago and occasionally she smokes 1 cigarette every 2 or 3 days, but she is planning to stop completely due to her history of chronic obstructive pulmonary disease. 7. History of chronic obstructive pulmonary disease, aware. She is having some mild and faint expiratory wheezing, scattered. 8. Disposition. I will continue following the recommendation of Hematology Oncology Department and especially Infectious Disease Department. This patient feels much better, as per the patient, also she stopped taking her HIV medications but now she is willing to take it again, she states that she has been with HIV for around 28 years. cc: Daniel Licea MD
[2019-01-11] MEDS: FOLIC ACID PO SCH ×2 (12:14→21:37)
--- NOTE | 2019-01-11 14:33 | HEMO/ONC CONSULTATION ---
DATE: 01/10/2019 REASON FOR CONSULTATION: Pancytopenia. REQUESTING PHYSICIAN: Dr. Melendez. CHIEF COMPLAINT/HISTORY OF PRESENT ILLNESS: Patient is a 53-year-old female with HIV who was admitted with complaints of fevers, chills, body aches over 2 days. She also had nausea and vomiting. She presented to the ER and after evaluation was diagnosed to have a right lower lobe pneumonia and sepsis. She was initially admitted to [facility] and transferred here. Currently she reports that she is doing much better than on admission. She denies a history of prior splenomegaly. She denies glandular enlargement in the neck, axilla or the groin. She follows up in [place] at the [facility] clinic from her HIV standpoint. PAST MEDICAL HISTORY: HIV, depression. PAST SURGICAL HISTORY: Appendectomy, cholecystectomy and ORIF of left arm. FAMILY HISTORY: Noncontributory. SOCIAL HISTORY: Patient is a chronic smoker and smokes 1 pack per day. She denies alcohol abuse. She has prior cocaine abuse. ALLERGIES: No known drug allergies. CURRENT MEDICATIONS: Albuterol and Atrovent nebulizers, cefepime, Lexapro, vancomycin, Triumeq, nystatin, Prilosec, Zofran. Initially she received Zosyn in [place]. Not sure when that was stopped. REVIEW OF SYSTEMS: As dictated above. All other review of systems are negative. PHYSICAL EXAMINATION: The patient is a thinly built female in no acute distress. Temperature 98 degrees, pulse 110, blood pressure 143/77, pulse oximetry 100 percent on room air.HEENT: EOMI. PERRLA. Anicteric. Mucous membranes appear moist. Neck: Supple without thyromegaly. Lymph node survey negative. Cardiac: Regular rate and rhythm. Normal S1, S2. Chest: Reveals some coarse breath sounds at both bases. Abdomen: Soft, nontender, without hepatosplenomegaly or masses. Extremities: No cyanosis, clubbing, or edema. Neurological: Alert and oriented x3. No focal motor deficits. LABS: Upon admission, on 01/07/2019: White count 11.1, hemoglobin 9.6, platelets 155,000. ANC 10.6. Today white count 3.1, hemoglobin 8.4, MCV 96, platelets 116,000. Yesterday her white count was 3.1 and platelets were 87,000. BUN 4, creatinine 0.6, alkaline phosphatase 167, AST 31, ALT 15. ASSESSMENT AND PLAN: 1. Pancytopenia: The patient's white count and platelets are adequate on admission. This has gone down during the hospitalization. I suspect this is most likely related to her infectious episode and sepsis. She is recovering from sepsis at this time. Today her white count and platelets are slightly trending up compared to yesterday. Check B12 and folate levels. Check LDH and ESR and review blood smear. Evaluate her last scan to see if she has any splenomegaly. I will continue to follow with you. Right now she does not require any growth factor support or transfusions. 2. Human immunodeficiency virus: On Triumeq. 3. Sepsis/pneumonia: She is on cephalosporin and vancomycin. Making good progress. 4. Normocytic anemia: Check iron profile and a reticulocyte count today. Thank you for this consult. cc: Josué Manuel MD
[2019-01-11] MEDS: VANCOMYCIN 1,250 MG in NS 250 ML IV SCH (21:36)
[2019-01-11] MEDS: TORADOL IV PRN (23:54)
[2019-01-12] MEDS: DUONEB (A & A) INH SCH ×5 (03:40→19:30)
[2019-01-12] MEDS: PRILOSEC PO SCH (06:16)
[2019-01-12 06:37] LABS: BASO# 0.03 X1000 (0.0-0.2); BASO% 1.1 % (0.0-0.8); EOS% 11.2 % (0.0-10.0); HEMATOCRIT 28.6 % (37.0-47.0); HEMOGLOBIN 9.1 g/dL (12.0-16.0); LYMPH# 0.59 X1000 (1.2-3.4); LYMPH% 21.9 % (20.5-51.1); MCH 30.8 PG (27-31); MCHC 31.8 g/dL (33-37); MCV 96.9 FL (81-99); MONO# 0.41 X1000 (0.11-0.59); MONO% 15.2 % (1.7-9.3); MPV 10.5 FL (7.4-10.4); NEUT# 1.36 X1000 (1.4-6.5); NEUT% 50.6 % (42.2-75.2); PLT 146 X1000 (130-400); RBC 2.95 XMIL (4.2-5.4); RDW 14.9 % (11.5-14.5); WBC 2.69 X1000 (4.8-10.8)
[2019-01-12 06:57] LABS: AGAP 7; BUN 5 mg/dL (8-22); CHLORIDE 110 mmol/L (98-107); COSMO 285; CREATININE 0.8 mg/dL (0.5-0.9); ESTIMATED GFR > 60; GLUCOSE 80 mg/dL (70-104); SODIUM 145 mmol/L (136-145); TCO2 28 mmol/L (25-35)
[2019-01-12] MEDS: ADVAIR 250/50 DISKUS INH SCH ×2 (07:28→19:30)
[2019-01-12] MEDS: NON-FORMULARY MED PO SCH (08:07)
[2019-01-12] MEDS: LEXAPRO PO SCH (08:08)
[2019-01-12] MEDS: FOLIC ACID PO SCH ×2 (08:08→20:28)
[2019-01-12] MEDS: TUMS EXTRA STRENGTH PO SCH ×3 (08:08→17:40)
[2019-01-12] MEDS: MAXIPIME 1 GM in NS 50 ML IV SCH ×3 (08:08→22:53)
[2019-01-12] MEDS: MYCOSTATIN SUSP PO SCH ×4 (08:08→20:28)
--- NOTE | 2019-01-12 13:16 | PROGRESS NOTE ---
DATE: 01/12/2019 SUBJECTIVE: Patient resting comfortably in bed. OBJECTIVE: Vital signs: Temperature is 97.9, pulse 99, respiratory rate 18, blood pressure is 118/78. Oxygen saturation 94%. HEENT: Atraumatic, normocephalic. Cardiovascular: S1, S2. Respiratory system: Evidence of good air entry bilaterally. Abdomen: Soft, nontender. No masses felt. Extremities: No evidence of edema. Central nervous system: No obvious focal deficit noted. LABORATORY DATA: WBC is 2.69, hematocrit 26.8 with a platelet count of 146,000. Sodium 145, potassium 4, chloride 110, bicarb 28, BUN is 5, creatinine 0.8. ASSESSMENT AND PLAN: 1. Sepsis secondary to right lower lobe pneumonia. Continue antibiotics. Recommendation of Infectious Disease. The patient is currently on Cefepime as well as vancomycin. 2. Human immunodeficiency virus infection. Infectious Disease following. 3. Pancytopenia. Hematology/Oncology consulted. Probably secondary to HIV disease. Along with checking B12 and folate level, we will also check hepatitis panel, as well. 4. Substance abuse. Aware. The patient will need to stop drug use. 5. Tobacco use history. Aware. Use nicotine patch if needed. 6. Chronic obstructive pulmonary disease. Nebulized bronchodilators as needed. 7. Deep vein thrombosis prophylaxis. Lovenox. 8. Gastrointestinal prophylaxis. Proton pump inhibitor. cc: Abram Bolanos MD
[2019-01-12] MEDS: ZOFRAN IV PRN (15:40)
[2019-01-12] MEDS: VANCOMYCIN 1,250 MG in NS 250 ML IV SCH (22:50)
[2019-01-13] MEDS: DUONEB (A & A) INH SCH ×4 (00:10→12:39)
[2019-01-13] MEDS: PRILOSEC PO SCH ×2 (05:19→09:21)
[2019-01-13 07:17] LABS: BASO# 0.02 X1000 (0.0-0.2); BASO% 0.5 % (0.0-0.8); EOS# 0.23 X1000 (0.0-0.7); HEMATOCRIT 28.5 % (37.0-47.0); HEMOGLOBIN 9.2 g/dL (12.0-16.0); IMM GRAN# 0.07 X1000 (0.0-0.04); IMM GRAN% 1.8 % (0.0-0.5); LYMPH# 0.58 X1000 (1.2-3.4); LYMPH% 15.2 % (20.5-51.1); MCH 30.9 PG (27-31); MCHC 32.3 g/dL (33-37); MCV 95.6 FL (81-99); MONO# 0.48 X1000 (0.11-0.59); MONO% 12.6 % (1.7-9.3); MPV 10.1 FL (7.4-10.4); NEUT# 2.44 X1000 (1.4-6.5); NEUT% 63.9 % (42.2-75.2); PLT 192 X1000 (130-400); RBC 2.98 XMIL (4.2-5.4); RDW 14.5 % (11.5-14.5); WBC 3.82 X1000 (4.8-10.8)
[2019-01-13 07:46] LABS: AGAP 6; BUN 4 mg/dL (8-22); CALCIUM 8.1 mg/dL (8.8-10.2); CHLORIDE 108 mmol/L (98-107); COSMO 280; CREATININE 0.7 mg/dL (0.5-0.9); ESTIMATED GFR > 60; GLUCOSE 73 mg/dL (70-104); POTASSIUM 3.3 mmol/L (3.5-5.1); SODIUM 143 mmol/L (136-145); TCO2 29 mmol/L (25-35)
[2019-01-13] MEDS: ADVAIR 250/50 DISKUS INH SCH (08:42)
[2019-01-13] MEDS ORDERED: LOVENOX SUBQ SCH (09:00)
[2019-01-13] MEDS: TUMS EXTRA STRENGTH PO SCH ×2 (09:22→13:34)
[2019-01-13] MEDS: LEXAPRO PO SCH (09:22)
[2019-01-13] MEDS: FOLIC ACID PO SCH (09:22)
[2019-01-13] MEDS: NON-FORMULARY MED PO SCH (09:22)
[2019-01-13] MEDS: MYCOSTATIN SUSP PO SCH ×2 (09:22→13:34)
[2019-01-13] MEDS: MAXIPIME 1 GM in NS 50 ML IV SCH (09:33)
[2019-01-13] MEDS: ZOFRAN IV PRN (09:34)
[2019-01-13 11:15] VITALS: BP 133/78
[2019-01-13] MEDS ORDERED: KLOR-CON PO ONE (11:51)
--- NOTE | 2019-01-13 12:18 | PROGRESS NOTE ---
DATE: 01/13/2019 SUBJECTIVE: The patient resting comfortably. The patient is asking when she will be discharged home, and would like to go home. OBJECTIVE: Vital Signs: Temperature 99.4 degrees, pulse 103, respiratory rate 16, blood pressure is 130/78, and oxygen saturation is 95%. HEENT: Atraumatic, normocephalic. Cardiovascular: S1, S2. Respiratory: Evidence of good air entry bilaterally. Abdomen: Soft, nontender. No masses felt. Extremities: No evidence of edema. Central nervous system: No obvious focal deficits noted. LABORATORY: WBC is 3.82, hematocrit 28.5 with a platelet count of 192,000. Sodium is 143, potassium 3.3, chloride 108, bicarb 29, BUN is 4, and creatinine 0.7. ASSESSMENT AND PLAN: 1. Sepsis secondary to right lower lobe pneumonia. Continue antibiotics. The patient is currently on cefepime as well as vancomycin IV. 2. Human immunodeficiency virus disease. ID managing. 3. Pancytopenia. Hematology/Oncology following. 4. History of substance abuse. Aware. 5. Tobacco use history. Recommend nicotine patch. 6. COPD. Nebulized bronchodilators as needed. 7. Deep vein thrombosis prophylaxis. Lovenox. 8. Gastrointestinal prophylaxis. PPI. cc: Abram Bolanos MD
--- NOTE | 2019-01-13 13:39 | HEMO/ONC PROGRESS NOTE ---
DATE: 01/13/2019 SUBJECTIVE: The patient continues to feel better at this time. No new complaints at this time. OBJECTIVE: Vital Signs: Temperature 97.8 degrees, heart rate 88, respiratory rate 15, blood pressure 131/73, saturation 96% on room air. General: The patient is awake, lying in bed, no acute distress noted. HEENT: Anicteric. Mucous membranes moist. Cardiovascular: S1, S2. Regular rate and rhythm. Chest: Bilateral breath sounds clear to auscultation. Abdomen: Soft, nontender. Bowel sounds present in all 4 quadrants. Neurologic: Alert and oriented x3. No focal deficits noted. LABORATORY DATA: White blood cell count is 3.82, hemoglobin 9.2, hematocrit 28.5, platelets are 192,000. Potassium 3.3, BUN 4, creatinine 0.7, calcium 8.1. ASSESSMENT AND PLAN: 1. Pancytopenia: Counts continue to improve. Iron levels are adequate. The patient will continue on folic acid at this time. Continue to monitor at this time. The patient is not requiring growth factor support or transfusions at this time. 2. Human immunodeficiency virus: Continue management per primary medical team. 3. Sepsis/pneumonia: Continue antibiotics as ordered per primary medical team. 4. Normocytic anemia: Adequate. Plan of care discussed with Dr. Manuel. Dictated by MADHAVI Ross for Josué Manuel MD Patient seen and examined. As above. Pancytopenia is much better. This is most likely due to her recent sepsis. Continue current management. I will sign off at this time. Please call with any questions. Josué Manuel M.D. [facility]
--- NOTE | 2019-01-13 14:06 | DISCHARGE SUMMARY ---
ADMISSION DATE: 01/07/2019 DISCHARGE DATE: 01/13/2019 Ms Ahumada came into the hospital with fever and history of HIV. She had been noncompliant with her anti-retroviral therapy and was found to have a low CD4 count and high viral load. There were no positive cultures on this admission. Chest CT showed no pneumonia. She has been receiving vancomycin and cefepime. At this point, she wants to go home. She will need to follow up with the [facility] for her HIV care, and for any further antibiotics. Based on the HIV genotype, she should continue Triumeq as ordered. These plans have been discussed with and recommended by Dr. Adams. Dictated by MADHAVI Owens for Chao Adams MD cc: Chao Adams MD [facility]
[2019-01-13] MEDS ORDERED: HEMOCYTE-F TABLET PO SCH (14:15)
--- NOTE | 2019-01-13 17:01 | DISCHARGE SUMMARY ---
ADMISSION DATE: 01/07/2019 DISCHARGE DATE: 01/13/2019 PRINCIPAL DIAGNOSIS: Right lower lobe pneumonia. SECONDARY DIAGNOSES: 1. Sepsis. 2. Human immunodeficiency virus. 3. Hypokalemia. Thrombocytopenia. 4. Substance abuse. 5. Pancytopenia. DISCHARGE MEDICATIONS: 1. Advair Diskus 1 puff twice. 2. Spiriva 1 inhaler 1 daily. 3. Triumeq 600/50/300 one daily. 4. Hydroxyzine 50 mg at bedtime. 5. Omeprazole 40 mg p.o. daily. 6. Bactrim DS 1 p.o. daily. 7. Lexapro 5 mg p.o. daily. CONSULTATIONS DONE DURING THIS HOSPITAL STAY: 1. Dr. Chao Adams infectious disease. 2. Dr. Manuel Hematology Oncology. SPECIAL PROCEDURES DONE DURING THIS HOSPITAL STAY: Chest CT 01/04/2019. HOSPITAL COURSE: Ms Etta Ahumada is a 53-year-old female who was admitted to the hospital because of nausea, vomiting, diarrhea, fever, chills, body aches, which began about 2 days prior to presentation and has gotten progressively worse. She was found to have right lower lobe pneumonia and was managed accordingly. The patient was noted to be septic. The patient was placed on cefepime as well as intravenous vancomycin. At of this time the patient has done well. She is stable. She can now be discharged home. PHYSICAL EVALUATION: Today the vital signs were as follows: Temperature 99.4 degrees, pulse 103, respirations 16, blood pressure 133/68. HEENT: Atraumatic, normocephalic. Cardiovascular: S1, S2. Respiratory: Has evidence of good entry bilaterally. Abdomen: Soft, nontender. No masses felt. Extremities: No evidence of edema. Central nervous system: No obvious focal deficit noted. PLAN: Discharge home today. FOLLOWUP: 1. Dr. Manuel for pancytopenia. 2. Dr. Chao Adams for pneumonia as well as HIV disease. cc: Abram Bolanos MD
[2019-01-14 12:59] LABS: HEPATITIS PROFILE ACUTE SEE COMMENTS
== END 2019-01-13 15:39 | disposition home or self-care (01) | DRG 974 ==
LOC: P.ED 01:16 → SUATTDRO 05:58 → P.MEDSURG 05:58 → P.ICU 11:50 → 4N 01-10 10:59
PROVIDERS: ATTEND Internal Medicine
CPT/HCPCS: 36569; 71020; 71046; 71250; 80048; 80053; 80074; 80104; 80202; 80301; 80305; 81001; 82607; 82728; 82746; 82805; 83540; 83550; 83605; 83615; 83735; 84484; 85025; 85045; 85610; 86360; 87040; 87045; 87046; 87088; 87177; 87205; 87324; 87449; 87536; 87901; 88313; 89055; 93005; 94640; 94761; 96365; 96375; 99285; A9270; G0431; G0434; G0477; J0610; J0692; J1650; J1885; J1940; J2405; J2543; J3370; J3480; J7030; J7040; J7050; J7120

== ENCOUNTER 2019-02-17 00:11 | Inpatient (IN) ==
[2019-02-17 00:11] LABS: BE 2.1 mmoll (-3.0-3.0); BLOOD TYPE ARTERIAL; HCO3-(ACT) 26.2 mmoll (20.0-26.0); METHB 0.5 % (0.0-1.5); O2(CT) 14.7 mL/dL (15.0-23.0); PCO2(98.6) 34 mmHg (35-45); SAMPLE BLOOD; SAO2 86.2 % (95.0-100.0); THB 12.4 g/dL (11.5-17.4); pH(98.6) 7.48 (7.35-7.45)
[~2019-02-17 00:11] MED LIST: DUONEB (A & A) INH ONE; SOLU-MEDROL IV ONE
[2019-02-17 00:26] LABS: MODALITY ROOM AIR; O2HB 84.3 % (95.0-99.0); PO2(98.6) 48 mmHg (60-100)
[2019-02-17 00:27] LABS: ALLEN TEST NO
[2019-02-17 01:01] LABS: AGAP 13; ALBUMIN 3.1 g/dL (3.5-5.0); ALKALINE PHOSPHATASE 143 U/L (32-104); BUN 3 mg/dL (8-22); CALCIUM 8.6 mg/dL (8.8-10.2); CHLORIDE 96 mmol/L (98-107); CK PROFILE 50 U/L (24-173); COSMO 263; CREATININE 0.8 mg/dL (0.5-0.9); ESTIMATED GFR > 60; GLUCOSE 97 mg/dL (70-104); GOT 30 U/L (10-30); GPT 13 U/L (10-36); POTASSIUM 3.4 mmol/L (3.5-5.1); SODIUM 133 mmol/L (136-145); TCO2 24 mmol/L (25-35)
[2019-02-17 01:03] LABS: INR 0.96; PROTIME 13.3 Seconds (11.0-16.0)
[2019-02-17 01:04] LABS: PTT 32.2 Seconds (22.3-41.8)
[2019-02-17] MEDS ORDERED: ATIVAN ONE (01:08)
[2019-02-17] MEDS ORDERED: ATIVAN IV ONE ×3 (01:10→01:21)
[2019-02-17 01:21] LABS: BASO# 0.01 X1000 (0.0-0.2); BASO% 0.1 % (0.0-0.8); EOS# 0.02 X1000 (0.0-0.7); EOS% 0.2 % (0.0-10.0); HEMATOCRIT 33.7 % (37.0-47.0); HEMOGLOBIN 11.6 g/dL (12.0-16.0); IMM GRAN# 0.01 X1000 (0.0-0.04); IMM GRAN% 0.1 % (0.0-0.5); LYMPH# 1.25 X1000 (1.2-3.4); LYMPH% 14.1 % (20.5-51.1); MCHC 34.4 g/dL (33-37); MCV 90.1 FL (81-99); MONO# 1.35 X1000 (0.11-0.59); MONO% 15.2 % (1.7-9.3); MPV 9.5 FL (7.4-10.4); NEUT# 6.25 X1000 (1.4-6.5); NEUT% 70.3 % (42.2-75.2); PLT 377 X1000 (130-400); RBC 3.74 XMIL (4.2-5.4); RDW 13.6 % (11.5-14.5); WBC 8.89 X1000 (4.8-10.8)
[2019-02-17] MEDS ORDERED: NS 1,000 ML IV ONE ×2 (01:25→02:19)
[2019-02-17] MEDS ORDERED: TYLENOL PO PRN (02:19)
[2019-02-17] MEDS ORDERED: ZOFRAN IV PRN (02:19)
[2019-02-17] MEDS ORDERED: MORPHINE IV PRN (02:19)
--- NOTE | 2019-02-17 02:19 | PROVIDER DOCUMENTATION ---
This chart was entered by Tamika Gupta Scribe, acting as scribe for Suresh Slade MD. HPI-Respiratory General - General Chief Complaint: Shortness of Breath Stated Complaint: COPD Time Seen by Provider: 02/16/19 23:58 Source: patient, EMS Allergies/Adverse Reactions: Patient Allergies Allergy/AdvReac Type Severity Reaction Status Date / Time No Known Allergies Allergy Verified 02/17/19 00:14 Home Medications: Home Medication List Medication Instructions Recorded Confirmed Last Taken Type Fluticasone/Salmet 250/50 INH 1 puff INH RTBID #1 inhaler 01/18/18 01/07/19 Unknown Rx [Advair 250/50 Diskus] Tiotropium [place] Inhaler 1 puff INH RTDAILY #1 inhaler 01/18/18 Unknown Rx [Spiriva] Abacavir/Dolutegravir/Lamivudi 1 ea PO DAILY 01/07/19 01/07/19 Unknown History [Triumeq 600-50-300 mg Tablet] Escitalopram Oxalate [Lexapro] 5 mg PO DAILY 01/07/19 01/07/19 Unknown History Hydroxyzine Pamoate [Vistaril] 50 mg PO HS 01/07/19 01/07/19 Unknown History Omeprazole [Prilosec] 40 mg PO DAILY 01/07/19 01/07/19 Unknown History Sulfamethoxazole/Trimethoprim 1 ea PO BID 01/07/19 01/07/19 Unknown History [Sulfamethoxazole-Tmp Ds Tablet] Folic Acid 1 mg PO DAILY #30 tab 01/13/19 Unknown Rx - History of Present Illness-Resp Nature of Presenting Problem: 53 y/o female presents to ED with SOB and cough onset 2 weeks ago and worsening today. Pt reports she has hx COPD and is on 2L O2 at home. Pt is alert and oriented. Quality of Pain: reports: none Severity in ED: reports: mild Onset/Duration: reports: other (2 weeks ago) Timing: reports: still present, getting worse Context: reports: other (hx COPD) Exposure: reports: other (hx COPD) Cough Quality/Degree: reports: moderate Episode Frequency: chronic episodes (hx COPD) Current Respiratory Medication Therapy: Initiated see nurses note Modifying Factors: improves with: nothing Associated Symptoms: reports: cough, shortness of breath, short of breath Similar Symptoms Previously?: Yes (hx COPD) Recently seen or treated by another doctor?: No Review of Systems - Adult - REVIEW OF SYSTEMS - ADULT Constitutional: denies: chills, fever Eyes: reports: no symptoms reported Ears, Nose, Mouth & Throat: reports: no symptoms reported Cardiovascular: denies: chest pain, palpitations Respiratory: reports: cough, shortness of breath Gastrointestinal: denies: abdominal pain, diarrhea, nausea, vomiting Genitourinary: reports: no symptoms reported Musculoskeletal: denies: back pain, joint pain Integumentary: reports: no symptoms reported Neurological: denies: dizziness/vertigo, seizure Psychiatric: reports: no symptoms reported Endocrine: reports: no symptoms reported Hematologic/Lymphatic: reports: no symptoms reported Allergic/Immunologic: reports: no symptoms reported All Other Systems: Reviewed and Negative Past History - Adult - PAST MEDICAL HISTORY-ADULT Review of Records: reports: Old Records Reviewed, Nursing Assessment Review, Medications Reviewed Major Childhood Illnesses: reports: denies history Cardiovascular: reports: denies history Respiratory: reports: asthma, COPD, pneumonia Gastrointestinal: reports: denies history Obstetrical/Gynecological: reports: denies history Genitourinary: reports: denies history Musculoskeletal: reports: denies history Neurological: reports: denies history Psychiatric: reports: anxiety, depression Endocrine/Immune: reports: HIV/AIDS Other Conditions: reports: denies history - PRIOR SURGERIES/PROCEDURES Surgical/Procedure History: reports: appendectomy, cholecystectomy, orthopedic (extremity) (plates in the left arm) - IMMUNIZATION STATUS Childhood Immunizations: See Nurse Assessment Flu Vaccine: See Nurse Assessment - FAMILY HISTORY Family History: reviewed, not pertinent - SOCIAL HISTORY Smoking: less than 1 pack/day Provider spent 3-5 mins advising pt. on dangers of tobacco.: Discussed manners to quit use, and f/u contacts for add'l counseling. Substance Use: none/never Alcohol Use Frequency: never Living Situation: family Physical Exam-General - PHYSICAL EXAM-ADULT Initial Vital Signs Reviewed: Yes - CONSTITUTIONAL General Appearance: appears well, alert, mild distress - EYES Eyes: PERRL/EOMI, pink conjunctivae - HEAD, EARS, NOSE, MOUTH & THROAT HENMT: normocephalic/atraumatic, moist mucous membranes, dental decay - NECK Neck: non-tender, full range of motion - RESPIRATORY Respiratory: chest non-tender, respiratory distress (mild), accessory muscle use , wheezing, increased rate - CARDIOVASCULAR Cardiovascular: tachycardia - GASTROINTESTINAL (ABDOMEN) Abdominal Exam: normal bowel sounds, non tender, soft - MUSCULOSKELETAL Back Exam: normal inspection, no CVA tenderness Extremity: normal range of motion, non-tender, normal gait - SKIN Integumentary: normal color, warm/dry - NEUROLOGIC Neurologic: grossly normal - PSYCHIATRIC Psych/Mental Status: normal mood/affect, normal thought content, normal thought process - HEART Score HEART Score: History: Slightly Suspicious HEART Score: ECG: Normal HEART Score: Age: 45-65 Years HEART Score: Risk Factors for Atherosclerotic Disease: No Risk Factors Known HEART Score: Troponin: < or = Normal Limit Total HEART Score:: 1 Progress - PLAN OF CARE/RESULTS Progress/Plan/Lab Results: Vital Signs - 8 hr 02/17/19 00:11 02/17/19 00:21 02/17/19 00:58 Temperature 99.9 F H Pulse Rate 128 H 132 H Respiratory Rate 25 H 32 H Blood Pressure 104/68 O2 Sat by Pulse Oximetry 84 L 90 L 100 02/17/19 01:24 Temperature Pulse Rate Respiratory Rate Blood Pressure O2 Sat by Pulse Oximetry 98 Laboratory Results - last 24 hr 02/16/19 02/16/19 02/16/19 00:04 00:04 00:04 WBC 8.89 RBC 3.74 L Hgb 11.6 L Hct 33.7 L MCV 90.1 MCH 31.0 MCHC 34.4 RDW Std Deviation 13.6 Plt Count 377 MPV 9.5 Immature Gran % (Auto) 0.1 Neut % (Auto) 70.3 Lymph % (Auto) 14.1 L [place] % (Auto) 15.2 H Eos % (Auto) 0.2 Baso % (Auto) 0.1 Immature Gran # (Auto) 0.01 Neut # (Auto) 6.25 Lymph # (Auto) 1.25 [place] # (Auto) 1.35 H Eos # (Auto) 0.02 Baso # (Auto) 0.01 PT INR PTT (Actin FS) Specimen Type Sample Site pH pCO2 pO2 HCO3 Base Excess Oxyhemoglobin ABG O2 Sat (Calculated) ABG O2 Saturation ABG Carboxyhemoglobin ABG Methemoglobin Lloyd Test A-a O2 Difference Total Hemoglobin Lactate Blood Gas Modality FiO2 % Sodium 133 L Potassium 3.4 L Chloride 96 L Carbon Dioxide 24 L Anion Gap 13 BUN 3 L Creatinine 0.8 Estimated GFR/1.73 m2 > 60 BUN/Creatinine Ratio 4 Glucose 97 Calculated Osmolality 263 Calcium 8.6 L Total Bilirubin 0.30 AST 30 ALT 13 Alkaline Phosphatase 143 H Creatine Kinase 50 Troponin T < 0.010 Wxw-N-Xmkvfzurvmg Pept Total Protein 8.0 Albumin 3.1 L Globulin 5.0 Albumin/Globulin Ratio 1.0 Plasma Lactate 02/16/19 02/16/19 02/16/19 00:04 00:04 23:57 WBC RBC Hgb Hct MCV MCH MCHC RDW Std Deviation Plt Count MPV Immature Gran % (Auto) Neut % (Auto) Lymph % (Auto) [place] % (Auto) Eos % (Auto) Baso % (Auto) Immature Gran # (Auto) Neut # (Auto) Lymph # (Auto) [place] # (Auto) Eos # (Auto) Baso # (Auto) PT INR PTT (Actin FS) Specimen Type ARTERIAL Sample Site L BRACHIAL pH 7.48 H pCO2 34 L pO2 48 L* HCO3 26.2 H Base Excess 2.1 Oxyhemoglobin 84.3 L* ABG O2 Sat (Calculated) 14.7 L ABG O2 Saturation 86.2 L ABG Carboxyhemoglobin 1.70 ABG Methemoglobin 0.5 Lloyd Test NO A-a O2 Difference 59.0 Total Hemoglobin 12.4 Lactate 0.60 Blood Gas Modality ROOM AIR FiO2 % 21.0 Sodium Potassium Chloride Carbon Dioxide Anion Gap BUN Creatinine Estimated GFR/1.73 m2 BUN/Creatinine Ratio Glucose Calculated Osmolality Calcium Total Bilirubin AST ALT Alkaline Phosphatase Creatine Kinase Troponin T Bci-O-Qdziehqmalv Pept 322 H Total Protein Albumin Globulin Albumin/Globulin Ratio Plasma Lactate 0.8 02/17/19 02/17/19 00:04 00:04 WBC RBC Hgb Hct MCV MCH MCHC RDW Std Deviation Plt Count MPV Immature Gran % (Auto) Neut % (Auto) Lymph % (Auto) [place] % (Auto) Eos % (Auto) Baso % (Auto) Immature Gran # (Auto) Neut # (Auto) Lymph # (Auto) [place] # (Auto) Eos # (Auto) Baso # (Auto) PT 13.3 INR 0.96 PTT (Actin FS) 32.2 Specimen Type Sample Site pH pCO2 pO2 HCO3 Base Excess Oxyhemoglobin ABG O2 Sat (Calculated) ABG O2 Saturation ABG Carboxyhemoglobin ABG Methemoglobin Lloyd Test A-a O2 Difference Total Hemoglobin Lactate Blood Gas Modality FiO2 % Sodium Potassium Chloride Carbon Dioxide Anion Gap BUN Creatinine Estimated GFR/1.73 m2 BUN/Creatinine Ratio Glucose Calculated Osmolality Calcium Total Bilirubin AST ALT Alkaline Phosphatase Creatine Kinase 50 Troponin T Izc-C-Yzbvwjlbtxu Pept Total Protein Albumin Globulin Albumin/Globulin Ratio Plasma Lactate Orders Category Date Time Status Farah Cath Insertion ORDERED Care 02/17/19 01:52 Active Notify MD of + Sepsis Screen NOW Care 02/17/19 00:18 Active cxr [CHEST-1 VIEW] [RAD] Stat Exams 02/16/19 23:57 Taken ABG [RESP] Routine Lab 02/16/19 23:57 Completed BLOOD CULTURE [BLDCUL] Stat Lab 02/16/19 23:57 Ordered CBC WITH ELECTRONIC DIFF [HEME] Stat Lab 02/16/19 00:04 Completed CK PROFILE [SP CHEM] Stat Lab 02/16/19 00:04 Completed CK PROFILE [SP CHEM] Stat Lab 02/17/19 00:04 Completed COMPREHENSIVE METABOLIC PANEL [CHEM] Stat Lab 02/16/19 00:04 Completed LACTATE, PLASMA [CHEM] Stat Lab 02/16/19 00:04 Completed PRO B-NATRIURETIC PEPTIDE Stat Lab 02/16/19 00:04 Completed PROTIME WITH INR [COAG] Stat Lab 02/17/19 00:04 Completed PTT [COAG] Stat Lab 02/17/19 00:04 Completed TROPONIN T Stat Lab 02/16/19 00:[address] W/POSS RFLX CULT [URINALYSIS] Stat Lab 02/16/19 23:58 Uncollected URINE DRUG SCREEN PL Stat Lab 02/17/19 01:55 Uncollected 0.9% Sodium Chloride Inj [Ns] 1,000 ml Med 02/17/19 01:25 Active IV 999 mls/hr Albuterol 2.5MG/Ipratrop 0.5MG [Duoneb (A & A)] Med 02/16/19 23:58 Discontinued 9 ml INH NOW ONE Lorazepam [Ativan] Med 02/17/19 01:10 Discontinued 1 mg IV NOW ONE Lorazepam [Ativan] Med 02/17/19 01:21 Discontinued 1 mg IV NOW ONE Lorazepam [Ativan] Med 02/17/19 01:21 Discontinued 1 mg IV NOW ONE Lorazepam [Ativan] Med 02/17/19 01:08 Discontinued 2 mg .ROUTE .STK-MED ONE Methylprednisolone Sod Succ [Solu-Medrol] Med 02/16/19 23:58 Discontinued 125 mg IV NOW ONE Aerosol Treatments Routine Oth 02/16/19 23:58 Completed Aerosol Treatments Stat Oth 02/16/19 23:58 Completed BIPAP Stat Oth 02/17/19 00:43 Active Oxygen Device Stat Oth 02/17/19 00:18 Active EKG [EKG] Stat Ther 02/17/19 01:18 Ordered Result Diagrams: 02/16/19 00:04 02/16/19 00:04 - EKG 1 Time of EKG reading by physician:: 01:16 EKG Read and Signed by:: Suresh Slade EKG Interpretation (*Must complete 3 of following elements*): Abnormal Rate: 129 Rhythm: Sinus tach [place]: normal QRS: normal [place] Interval: normal ST Wave: non-specific ST changes - XRAY 1 XRAY Study: Chest Impression: See EMR Report - CONSULTS/PCP/HOSPITALIST Notification #1 *Consult/PCP/Hospitalist*: Dr. Phillips Reason/Comments: COPD exacerbation Consult Disposition: Admit Departure - Departure Date of Disposition Decision: 02/17/19 Time of Disposition Decision: 01:55 DIAGNOSIS: COPD exacerbation Disposition: ADMITTED INPATIENT 09 Certified Medical Emergency: Emergent Condition: Stable Referrals and Follow-Ups: UNKNOWN, [Primary Care Provider] - Discharge Education: Steps to Quit Smoking, Yxes-ol-Tufq - Critical Care Note This patient required my direct & personal management of CC.: Yes Total Time (mins): 32 Critical Care Statement: This patient required my direct personal management to treat or rule out processes, the absence of which, could potentiallly result in sudden, clinically significant life or limb threatening deterioration. Attestation - Physician/ HAIR Attestation Patient care was provided by Advanced Practice Provider:: No The physician spent face to face time with patient:: Yes Advanced Practice Provider documentation review:: Supervising physician onsite and consulted in the evaluation and care of this patient. The physician did have a face to face encounter with the patient. This chart was documented by the indicated scribe, (Tamika Gupta Scribe) and accurately reflects the services I performed and decisions made by me, Yunior Slade MD, as attested by the provider's signature.
[2019-02-17] MEDS: DUONEB (A & A) INH SCH ×6 (03:20→23:03)
[2019-02-17 03:38] LABS: BILIRUBIN URINE NEGATIVE (NEGATIVE); BLOOD URINE NEGATIVE (NEGATIVE); CLARITY CLEAR (CLEAR); COLOR YELLOW; GLUCOSE URINE NEGATIVE (NEGATIVE); KETONE URINE NEGATIVE (NEGATIVE); LEUKOCYTES URINE TRACE (NEGATIVE); NITRITE URINE NEGATIVE (NEGATIVE); PROTEIN URINE TRACE mg/dL (NEGATIVE); UROBILINOGEN URINE NORMAL
[2019-02-17 03:39] LABS: URINE BACTERIA 1+ /HFP; URINE EPITHELIAL CELLS <10 /HPF (<10); URINE RBC <10 /HPF (<10); URINE SOURCE CLEAN CATCH; URINE WBC <10 /HPF (<10)
--- NOTE | 2019-02-17 03:46 | EKG Report ---
Test Performed on : 02/17/2019 01:16:24 AM Test Reason : svt? Blood Pressure : / mmHG Vent. Rate : 129 BPM Atrial Rate : 129 BPM P-R Int : 128 ms QRS Dur : 082 ms QT Int : 386 ms P-R-T Axes : 074 027 077 degrees QTc Int : 565 ms Sinus tachycardia. Nonspecific ST and T wave abnormality Abnormal ECG When compared with ECG of 07-JAN-2019 03:14, No significant change was found Unconfirmed Result
[2019-02-17 03:48] LABS: UR AMPHETAMINES QUAL NONE DETECTED (NONE DETECT); UR BARBITUATES QUAL NONE DETECTED (NONE DETECT); UR BENZODIAZEPIN QUAL NONE DETECTED (NONE DETECT); UR CANNABINOIDS QUAL NONE DETECTED (NONE DETECT); UR COCAINE QUAL PRESUMPTIVE POSITIVE (NONE DETECT); UR METHADONE QUAL NONE DETECTED (NONE DETECT); UR METHAMPHETAMINE QUAL NONE DETECTED (NONE DETECT); UR OPIATES QUAL NONE DETECTED (NONE DETECT); UR OXYCODONE QUAL NONE DETECTED (NONE DETECT); UR PCP QUAL NONE DETECTED (NONE DETECT); UR PROPOXYPHENE QUAL NONE DETECTED (NONE DETECT); UR TCA QUAL NONE DETECTED (NONE DETECT)
--- NOTE | 2019-02-17 05:49 | Diag Imaging Result Doc PS360 ---
EXAM: CHEST-1 VIEW HISTORY: fever, cough TECHNIQUE: Chest single view COMPARISON: 01/07/2019 FINDINGS: The lungs are hyperexpanded. The heart is not enlarged. The vessels are not distended. There are increased interstitial markings throughout the lungs which are more prominent than on the prior study. No consolidation. No effusion identified. IMPRESSION: Emphysema with infiltrates Electronically signed by Eliel Plunkett 02/17/2019 5:47 AM
[2019-02-17 05:59] LABS: UR AMPHETAMINES QUAL NONE DETECTED (NONE DETECT); UR BARBITUATES QUAL NONE DETECTED (NONE DETECT); UR BENZODIAZEPIN QUAL NONE DETECTED (NONE DETECT); UR CANNABINOIDS QUAL NONE DETECTED (NONE DETECT); UR COCAINE QUAL PRESUMPTIVE POSITIVE (NONE DETECT); UR METHADONE QUAL NONE DETECTED (NONE DETECT); UR METHAMPHETAMINE QUAL NONE DETECTED (NONE DETECT); UR OPIATES QUAL NONE DETECTED (NONE DETECT); UR OXYCODONE QUAL NONE DETECTED (NONE DETECT); UR PCP QUAL NONE DETECTED (NONE DETECT); UR PROPOXYPHENE QUAL NONE DETECTED (NONE DETECT); UR TCA QUAL NONE DETECTED (NONE DETECT)
--- NOTE | 2019-02-17 09:43 | HISTORY AND PHYSICAL ---
PRIMARY CARE PHYSICIAN: [facility] in [place], [place]. CHIEF COMPLAINT: Shortness of breath and cough for 2 weeks that has progressively worsened. HISTORY OF PRESENTING ILLNESS: This is a 53-year-old female who presents to [facility] ER with complaints of shortness of breath and a cough for 2 weeks that progressively worsened. She states that she does use her oxygen at home, and that the shortness of breath worsened despite that. She states that she has cut back on her cigarette smoking from a pack a day to 3 to 4 cigarettes a day, and also continues to use cocaine but states she only uses it once every couple of weeks. Workup in the emergency room when she arrived, she had an O2 saturation of 84% on room air, and went up to 90% on 3 L. She was placed on a high-flow oxygen at 50%, and is currently saturating 97 to 99 percent. Laboratory Data: Her ABG showed a pH of 7.48, pCO2 of 34, PO2 48, and bicarb 26.2, and this was on room air. Her urine drug screens did show presumptive positive for cocaine. We did a chest x-ray that showed emphysema with infiltrates, but no consolidations. She will be admitted for further evaluation and treatment. PAST MEDICAL HISTORY: HIV positive, depression, COPD with home O2, medical noncompliance, and cocaine dependence and abuse. PAST SURGICAL HISTORY: Appendectomy, cholecystectomy and ORIF of the left arm. FAMILY HISTORY: Reviewed and noncontributory. SOCIAL HISTORY: She currently lives with a friend. She was a pack a day smoker, but has recently decreased down to 3 to 4 cigarettes a day. Denies any alcohol use, and uses cocaine once every couple of weeks. ALLERGIES: She has no known drug allergies. HOME MEDICATIONS: A current list of medications, needs to be obtained, reconciled, reviewed and restarted as appropriate. Place an order for nursing to update and confirm home medications. LABORATORY DATA: White blood cell count of 8.89, hemoglobin 11.6, hematocrit 33.7, and platelets 377,000. PT and INR of 13.3 and 0.96. ABG on room air showed a pH of 7.48, pCO2 34, PO2 48, and bicarb 26.2. Sodium 133, potassium 3.4, chloride 96, CO2 24, BUN of 3, creatinine 0.8, and glucose 97. Cardiac enzymes were negative. ProBNP of 322. Plasma lactate of 0.8. Urinalysis was negative except for 1+ bacteria. Urine drug screen was presumptive positive for cocaine. Chest x-ray showed emphysema with infiltrates that are increased interstitial markings throughout the lung that appear more prominent than on her prior study. REVIEW OF SYSTEMS: She denied any fever, chills, blurred vision, dizziness, or chest pain. She has had a productive cough or shortness of breath. Despite her O2 via nasal cannula at home. She denied any abdominal pain, constipation, diarrhea, burning or hurting with urination. PHYSICAL EXAMINATION: On arrival, she had a temperature of 99.9 degrees, pulse 128 respirations 25, blood pressure 104/68 and saturating 84% on room air. Currently, her O2 saturation on high- flow oxygen is 97 to 99 percent. HEENT: Normocephalic, atraumatic. Normal ENT inspection. Oropharynx and nares are clear. EYES: Pupils are equal, round, and reactive to light and accommodation. Extraocular movements are intact. NECK: Normal on inspection. Normal range of motion. LUNGS: Wheezing scattered throughout entire posterior lung carpio. Accessory muscle use noted. On arrival, she was in respiratory distress, but that has resolved and she has equal lung expansion and chest wall movement currently. O2 via high-flow O2 in use via nasal cannula. HEART: Regular rate and rhythm. No murmurs, rubs, or gallops. ABDOMEN: Soft, nontender, and nondistended. Bowel sounds are present x4 quadrants. MUSCULOSKELETAL: She has 5/5 strength x4 extremities. NEUROLOGICAL: The cranial nerves 2-12 appear grossly intact. ASSESSMENT: 1. Acute chronic obstructive pulmonary disease exacerbation. 2. Acute respiratory failure. 3. Tobacco abuse. 4. Cocaine use and abuse. 5. Medical noncompliance. PLAN: She is being admitted to the medical unit, and placed on O2 per protocol. Healthy heart diet. We will check blood cultures x2. Urine cultures that are pending. She is on DuoNeb q.4 hours, Solu-Medrol 80 mg IV q.8h, and we will wean as she improves. Morphine 2 mg IV q.2 hours p.r.n. Normal saline at 100 mL an hour was ordered on admission, Zofran 4 mg IV q.4 hours p.r.n., Rocephin 1 gram IV q.24 and azithromycin 500 IV q.24. Recheck CBC, BMP in the morning. Again, we need to update and confirm home medications in order to restart as appropriate. Further orders after being seen by attending. Dictated by MADHAVI Gutierrez for Willy Hammonds MD Addendum: Patient seen and examined by myself. Agree with MADHAVI note. It reflects my assessment and plan. Patient is being admitted to hospital for acute respiratory failure secondary to COPD exacerbation. Unfortunately she is still smoking. Will provide breathing treatments with Duoneb and Brovana. Also IV steroids and also antibiotics. Will monitor patient closely. cc: MADHAVI Gutierrez MD [facility]
[2019-02-17] MEDS: SOLU-MEDROL IV SCH ×2 (09:45→17:26)
[2019-02-17] MEDS: ZITHROMAX 500 MG/NS 500 MG/250 ML IVPB IV SCH (09:45)
[2019-02-17] MEDS ORDERED: ALBUTEROL NEB INH PRN (10:41)
[2019-02-17] MEDS ORDERED: ATROVENT NEB INH PRN (10:41)
[2019-02-17] MEDS ORDERED: ATARAX PO PRN (10:41)
[2019-02-17] MEDS ORDERED: PHENERGAN PO PRN (10:41)
[2019-02-17] MEDS: ROCEPHIN 1 GM in NS 50 ML IV SCH (10:49)
[2019-02-17] MEDS: SPIRIVA INH SCH (11:53)
[2019-02-17] MEDS ORDERED: DIFLUCAN PO SCH (12:00)
[2019-02-17] MEDS ORDERED: NON-FORMULARY MED PO ONE (13:00)
[2019-02-17] MEDS: LEXAPRO PO SCH (13:17)
[2019-02-17] MEDS: PERIACTIN PO SCH ×2 (13:17→17:26)
[2019-02-17] MEDS: MYCOSTATIN SUSP PO SCH ×3 (13:17→20:27)
[2019-02-18] MEDS: SOLU-MEDROL IV SCH ×3 (01:25→18:17)
[2019-02-18] MEDS: DUONEB (A & A) INH SCH ×6 (03:53→22:38)
[2019-02-18] MEDS: PRILOSEC PO SCH (06:12)
[2019-02-18 06:38] LABS: HEMATOCRIT 31.2 % (37.0-47.0); HEMOGLOBIN 10.4 g/dL (12.0-16.0); IMM GRAN# 0.03 X1000 (0.0-0.04); IMM GRAN% 0.3 % (0.0-0.5); LYMPH% 1.8 % (20.5-51.1); MCHC 33.3 g/dL (33-37); MCV 92.9 FL (81-99); MONO% 2.7 % (1.7-9.3); NEUT# 10.67 X1000 (1.4-6.5); NEUT% 95.2 % (42.2-75.2); PLT 370 X1000 (130-400); RBC 3.36 XMIL (4.2-5.4); RDW 13.9 % (11.5-14.5)
[2019-02-18 07:11] LABS: LYMPHS 1 % (21-51); SEGS 99 % (42-75)
[2019-02-18 07:16] LABS: AGAP 14; BUN 10 mg/dL (8-22); CALCIUM 8.7 mg/dL (8.8-10.2); CHLORIDE 112 mmol/L (98-107); COSMO 295; CREATININE 0.9 mg/dL (0.5-0.9); ESTIMATED GFR > 60; GLUCOSE 163 mg/dL (70-104); SODIUM 147 mmol/L (136-145); TCO2 22 mmol/L (25-35)
[2019-02-18 07:18] LABS: POTASSIUM 2.3 mmol/L (3.5-5.1)
[2019-02-18] MEDS: SPIRIVA INH SCH (07:40)
[2019-02-18] MEDS: LEXAPRO PO SCH (09:22)
[2019-02-18] MEDS: MYCOSTATIN SUSP PO SCH ×4 (09:23→21:03)
[2019-02-18] MEDS: PATIENT'S OWN MED PO SCH (09:23)
[2019-02-18] MEDS: PERIACTIN PO SCH ×3 (09:24→18:08)
[2019-02-18] MEDS: NS 1,000 ML IV SCH ×2 (09:25→18:08)
[2019-02-18] MEDS ORDERED: POTASSIUM CHLORIDE 20 MEQ/SWI 40 MEQ/200 ML IVPB IV SCH (10:00)
[2019-02-18] MEDS ORDERED: POTASSIUM CHLORIDE 60 MEQ in NS 500 ML IV ONE (10:49)
[2019-02-18 11:16] LABS: BLOOD TYPE ARTERIAL; SAMPLE BLOOD
[2019-02-18 11:17] LABS: BE -1.2 mmoll (-3.0-3.0); HCO3-(ACT) 23.9 mmoll (20.0-26.0); METHB 0.8 % (0.0-1.5); O2(CT) 15.7 mL/dL (15.0-23.0); O2HB 94.4 % (95.0-99.0); PCO2(98.6) 33 mmHg (35-45); PO2(98.6) 83 mmHg (60-100); SAO2 96.4 % (95.0-100.0); THB 11.8 g/dL (11.5-17.4); pH(98.6) 7.44 (7.35-7.45)
[2019-02-18 11:20] LABS: ALLEN TEST YES; MODALITY CANNULA
[2019-02-18] MEDS: ZITHROMAX 500 MG/NS 500 MG/250 ML IVPB IV SCH (11:48)
[2019-02-18 11:55] LABS: AGAP 14; BUN 11 mg/dL (8-22); CALCIUM 8.5 mg/dL (8.8-10.2); CHLORIDE 110 mmol/L (98-107); COSMO 291; CREATININE 0.9 mg/dL (0.5-0.9); ESTIMATED GFR > 60; GLUCOSE 155 mg/dL (70-104); SODIUM 145 mmol/L (136-145); TCO2 20 mmol/L (25-35)
[2019-02-18 11:56] LABS: POTASSIUM 2.3 mmol/L (3.5-5.1)
[2019-02-18] MEDS: POTASSIUM CHLORIDE 60 MEQ in NS 500 ML IV SCH ×2 (12:59→19:41)
[2019-02-18] MEDS: ROCEPHIN 1 GM in NS 50 ML IV SCH (13:21)
--- NOTE | 2019-02-18 15:30 | PROGRESS NOTE ---
DATE: 02/18/2019 SUBJECTIVE: Patient reports breathing much better. Denies any fever or chills. OBJECTIVE: Vitals: Temperature 97.3 degrees, heart rate 58, respiratory rate 16, blood pressure 118/73, O2 saturation 98% on 2 L nasal cannula. On general examination, this is a chronically ill- appearing and cachectic 53-year-old female, lying in bed, in no acute distress. Cardiovascular: S1, S2 heard. No murmurs, gallops, or rubs. Regular rate and rhythm. Respiratory: Wheezing is still noted in both pulmonary bases. Patient is not using any accessory muscles or having work of breathing. Abdomen: Soft. Nontender to palpation. Bowel sounds present. No organomegaly. Extremities: No clubbing, cyanosis, or edema. Peripheral pulses present in both legs. Neurological: Patient is alert and oriented x3. Moves 4 extremities. LABORATORY DATA: White cell count 11.20, hemoglobin 10.4, hematocrit 31.2, platelets 370,000. ABG shows pH 7.44 with pCO2 of 33, PO2 of 83. BMP remarkable for potassium 2.3, calcium 8.5. ASSESSMENT AND PLAN: 1. Acute hypoxemic respiratory failure secondary to chronic obstructive pulmonary disease exacerbation. At this point, the patient clinically reports feeling better. We will continue with breathing treatments every 4 hours scheduled. We will continue with IV steroids. We will provide pain medication as needed. For this exacerbation, patient is on Rocephin and azithromycin. We will continue with same management. 2. Tobacco abuse. Patient advised to stop smoking. 3. Cocaine use and abuse. Patient advised not to use anymore recreational drugs. 4. Medical noncompliance. Aware. DISPOSITION: At this point, patient is feeling much better. I think this patient if she is feeling better, we can discharge her during the next 24 to 48 hours. cc: Willy Hammonds MD MTDD
[2019-02-18 20:45] LABS: AGAP 12; BUN 11 mg/dL (8-22); CALCIUM 8.3 mg/dL (8.8-10.2); CHLORIDE 113 mmol/L (98-107); COSMO 287; CREATININE 0.9 mg/dL (0.5-0.9); ESTIMATED GFR > 60; GLUCOSE 147 mg/dL (70-104); POTASSIUM 3.4 mmol/L (3.5-5.1); SODIUM 143 mmol/L (136-145); TCO2 18 mmol/L (25-35)
[2019-02-19] MEDS: SOLU-MEDROL IV SCH ×2 (00:09→08:43)
[2019-02-19] MEDS: DUONEB (A & A) INH SCH ×3 (03:06→11:38)
[2019-02-19 05:39] LABS: BE -6.6 mmoll (-3.0-3.0); BLOOD TYPE ARTERIAL; HCO3-(ACT) 19.8 mmoll (20.0-26.0); O2(CT) 14.3 mL/dL (15.0-23.0); O2HB 95.6 % (95.0-99.0); PCO2(98.6) 38 mmHg (35-45); PO2(98.6) 104 mmHg (60-100); SAMPLE BLOOD; THB 10.5 g/dL (11.5-17.4); pH(98.6) 7.31 (7.35-7.45)
[2019-02-19 05:40] LABS: ALLEN TEST NO; MODALITY CANNULA
[2019-02-19] MEDS: PRILOSEC PO SCH (06:08)
[2019-02-19 06:50] LABS: AGAP 10; BUN 13 mg/dL (8-22); CALCIUM 8.1 mg/dL (8.8-10.2); CHLORIDE 118 mmol/L (98-107); COSMO 293; CREATININE 0.9 mg/dL (0.5-0.9); ESTIMATED GFR > 60; GLUCOSE 148 mg/dL (70-104); POTASSIUM 3.5 mmol/L (3.5-5.1); SODIUM 146 mmol/L (136-145); TCO2 18 mmol/L (25-35)
[2019-02-19 06:56] LABS: HEMATOCRIT 31.8 % (37.0-47.0); HEMOGLOBIN 10.2 g/dL (12.0-16.0); IMM GRAN# 0.09 X1000 (0.0-0.04); IMM GRAN% 0.3 % (0.0-0.5); LYMPH# 0.23 X1000 (1.2-3.4); LYMPH% 0.9 % (20.5-51.1); MCHC 32.1 g/dL (33-37); MCV 96.7 FL (81-99); MONO# 0.35 X1000 (0.11-0.59); MONO% 1.4 % (1.7-9.3); MPV 9.1 FL (7.4-10.4); NEUT# 25.08 X1000 (1.4-6.5); NEUT% 97.4 % (42.2-75.2); PLT 399 X1000 (130-400); RBC 3.29 XMIL (4.2-5.4); RDW 14.6 % (11.5-14.5); WBC 25.75 X1000 (4.8-10.8)
[2019-02-19 07:37] VITALS: BP 125/67
[2019-02-19] MEDS: SPIRIVA INH SCH (07:39)
[2019-02-19] MEDS: LEXAPRO PO SCH (08:41)
[2019-02-19] MEDS: MYCOSTATIN SUSP PO SCH ×2 (08:41→13:44)
[2019-02-19] MEDS: PERIACTIN PO SCH ×2 (08:41→11:30)
[2019-02-19] MEDS: PATIENT'S OWN MED PO SCH (08:42)
[2019-02-19] MEDS: ZITHROMAX 500 MG/NS 500 MG/250 ML IVPB IV SCH (08:43)
[2019-02-19 10:04] LABS: LYMPHS 1 % (21-51); SEGS 99 % (42-75)
[2019-02-19] MEDS: ROCEPHIN 1 GM in NS 50 ML IV SCH (11:17)
--- NOTE | 2019-02-20 21:34 | DISCHARGE SUMMARY ---
ADMISSION DATE: 02/17/2019 DISCHARGE DATE: 02/19/2019 PRIMARY CARE PHYSICIAN: [facility] in [place], [place]. ADMISSION DIAGNOSES: 1. Acute chronic obstructive pulmonary disease exacerbation. 2. Acute respiratory failure. 3. Tobacco abuse. 4. Cocaine use and abuse. 5. Medical noncompliance. DISCHARGE DIAGNOSES: 1. An acute chronic obstructive pulmonary disease exacerbation, improved. 2. Acute respiratory failure, resolved. 3. Tobacco abuse. 4. Cocaine use and abuse. 5. Medical noncompliance. SUMMARY OF FINDINGS: This is a 53-year-old female who presented to the ER with complaints of shortness of breath and a cough for 2 weeks that progressively worsened. States that she does use her oxygen at home and that the shortness of breath worsened despite that. She had cut back on her cigarette smoking from a pack a day to 3 to 4 cigarettes a day, but also continued to use cocaine, but states she only uses it once every couple of weeks. When she arrived to the emergency room she had an O2 saturation of 84% on room air, went up to 90% on 3 L, and then was placed on high-flow oxygen at 50% and was saturating 97% to 99% on admission. Her urine drug screen was presumptive positive for cocaine. Her chest x-ray showed emphysema with infiltrates, but no consolidations. She was placed on IV antibiotics, steroids to taper, DuoNeb q. 4 hours, and IV antibiotics. She responded well to this treatment, and her O2 saturation was 100% on 2 L via nasal cannula. Of course, her white blood cell did come up, but that is most likely secondary to her steroids, and it was felt that she could safely be discharged home. She was noted to have had 2 episodes of hypokalemia and got as low as 2.3. We supplemented that and it up on the day of discharge to 3.5, and so it was felt that she could safely be discharged home. DISCHARGE MEDICATIONS: Triumeq 600/50/300 one p.o. daily, albuterol nebulizers q. 4 to 6 hours p.r.n., prescription for cefdinir 300 mg p.o. b.i.d. #20 with no refills, cyproheptadine 5 mL p.o. t.i.d. a.c., Lexapro 5 mg p.o. daily, fluconazole 400 mg p.o. as directed, Vistaril 50 mg p.o. at bedtime p.r.n., Atrovent inhaler put 2 puffs 4 times daily p.r.n., nystatin 4 times daily, omeprazole 40 mg p.o. daily, Phenergan 12.5 mg p.o. q. 6 hours p.r.n., Bactrim DS 1 p.o. daily, and Spiriva 2 puffs inhalation daily. FOLLOWUP: She will need to follow up with her primary care physician at the [facility] [address], and she will continue with her home O2 that she had on admission. TIME SPENT: This is a 35-minute discharge. Dictated by MADHAVI Gutierrez for Willy Hammonds MD Addendum: Patient seen and examined by myself. Agree with MADHAVI note. It reflects my assessment and plan. Patient is being discharged in stable condition. Will be seen by PCP in one to two weeks. cc: MADHAVI Gutierrez MD [facility]
== END 2019-02-19 14:00 | disposition home or self-care (01) | DRG 190 ==
LOC: P.ED 00:11 → SUATTDRO 03:53 → P.MEDSURG 03:53
PROVIDERS: ATTEND Internal Medicine
CPT/HCPCS: 36415; 71010; 71045; 80048; 80053; 80104; 80301; 80305; 81001; 82550; 82805; 83605; 83735; 83880; 84484; 85025; 85610; 85730; 87040; 87088; 93005; 94640; 94761; 96374; 96375; 99285; 99291; A9270; G0431; G0434; G0477; J0456; J0696; J2060; J2920; J2930; J3480; J7030; J7040

== ENCOUNTER 2019-06-27 11:06 | Inpatient (IN) ==
--- NOTE | 2019-06-27 12:28 | Diag Imaging Result Doc PS360 ---
CHEST-1 VIEW - 06/27/2019 INDICATION: copd, shortness of breath COMPARISON: 02/17/2019 FINDINGS: There is severe COPD. There is ill-defined infiltrate in the left lung base. There may be some trace infiltrate in the right midlung as well. Heart size is normal. No pneumothorax or large pleural effusion. IMPRESSION: Severe COPD. Bilateral infiltrates suggesting bronchopneumonia. Electronically signed by Smith Bryan 06/27/2019 12:26 PM
[2019-06-27 12:42] LABS: HEMATOCRIT 28.4 % (37.0-47.0); HEMOGLOBIN 9.1 g/dL (12.0-16.0); IMM GRAN% 1.3 % (0.0-0.5); LYMPH# 0.47 X1000 (1.2-3.4); MCH 27.9 PG (27-31); MCV 87.1 FL (81-99); MONO# 0.62 X1000 (0.11-0.59); MPV 9.7 FL (7.4-10.4); NEUT# 6.58 X1000 (1.4-6.5); NEUT% 84.7 % (42.2-75.2); PLT 390 X1000 (130-400); RBC 3.26 XMIL (4.2-5.4); RDW 14.5 % (11.5-14.5); WBC 7.77 X1000 (4.8-10.8)
[2019-06-27 13:14] LABS: ALB/GLOB RATIO 0.7; CALCIUM 8.2 mg/dL (8.8-10.2); CREATININE 1.2 mg/dL (0.5-0.9); POTASSIUM 2.6 mmol/L (3.5-5.1); TOTAL BILIRUBIN 0.62 mg/dL (0.20-1.00); TOTAL PROTEIN 7.5 g/dL (6.3-8.3)
[2019-06-27 13:29] LABS: INR 1.02; PROTIME 13.5 Seconds (11.0-16.0)
[2019-06-27 13:30] LABS: PTT 26.9 Seconds (22.3-41.8)
--- NOTE | 2019-06-27 13:49 | EKG Report ---
Test Performed on : 06/27/2019 11:32:49 AM Test Reason : ED. No order in [place] Blood Pressure : / mmHG Vent. Rate : 097 BPM Atrial Rate : 097 BPM P-R Int : 128 ms QRS Dur : 094 ms QT Int : 304 ms P-R-T Axes : 082 073 253 degrees QTc Int : 386 ms Normal sinus rhythm. ST & T wave abnormality, consider inferior ischemia Abnormal ECG When compared with ECG of 09-APR-2019 22:58, (Unconfirmed) Criteria for Septal infarct are no longer present ST now depressed in Inferior leads T wave inversion now evident in Inferior leads T wave inversion now evident in Lateral leads Unconfirmed Result
[2019-06-27] MEDS ORDERED: NS 1,000 ML IV ONE (14:34)
[2019-06-27 14:35] LABS: URINE SOURCE CATH
[2019-06-27] MEDS ORDERED: POTASSIUM CHLORIDE 10 MEQ/SWI 10 MEQ/100 ML IVPB IV ONE (14:35)
[2019-06-27] MEDS ORDERED: ROCEPHIN IV ONE (14:36)
[2019-06-27] MEDS ORDERED: DUONEB (A & A) INH ONE (14:37)
[2019-06-27 14:38] LABS: BILIRUBIN URINE NEGATIVE (NEGATIVE); BLOOD URINE TRACE (NEGATIVE); COLOR YELLOW; GLUCOSE URINE NEGATIVE (NEGATIVE); KETONE URINE NEGATIVE (NEGATIVE); LEUKOCYTES URINE NEGATIVE (NEGATIVE); NITRITE URINE NEGATIVE (NEGATIVE); PH URINE 6.5; PROTEIN URINE 50 mg/dL (NEGATIVE); SP GRAVITY URINE 1.016; TURBIDITY URINE CLEAR (CLEAR); UROBILINOGEN URINE NORMAL (NORMAL)
[2019-06-27 14:39] LABS: UR EPITHELIAL CELLS <10 /HPF (<10); URINE BACTERIA NEGATIVE /HPF; URINE RBC <10 /HPF (<10); URINE WBC <10 /HPF (<10)
[2019-06-27] MEDS ORDERED: SODIUM CHLORIDE 0.9% 10 ML ONE (15:21)
[2019-06-27] MEDS ORDERED: DUONEB (A & A) INH SCH (16:00)
--- NOTE | 2019-06-27 16:16 | HISTORY AND PHYSICAL ---
PRIMARY CARE PROVIDER: Mary located in [place], who treats her HIV AIDS. CHIEF COMPLAINT: Weight loss, shortness of breath, nausea, fever. HISTORY OF PRESENT ILLNESS: Ms. Etta Cordoba is a 53-year-old, extremely emaciated female who weighs approximately 60 pounds at 5 foot 3 inches. Her BMI is 10.6. States that she has been having issues where she has had extreme nausea, no appetite, difficulties with swallowing, and she feels like she has had even more weight loss. She has had severe fatigue, shortness of breath, subjective fevers as well. So, we will admit for failure to thrive. Imaging showed that she had bronchial pneumonia, so will treat that as well. PAST MEDICAL HISTORY: 1. 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 2. Depression. 3. COPD with 2 L of oxygen at home. 4. Medical noncompliance. 5. History of cocaine dependence and abuse. 6. Hard of hearing. SURGICAL HISTORY: 1. Appendectomy. 2. Cholecystectomy. 3. ORIF of the left arm. SOCIAL HISTORY: Continues to smoke around 3 cigarettes a day. She started smoking at the age of 16. Denies alcohol. She used cocaine around 2 days ago. She uses a walker to get around. She is ,lives with her , and is on disability. Apparently, her just got out of the hospital yesterday for his diabetes. FAMILY HISTORY: Mother: No medical conditions. Father: No medical conditions. ALLERGIES: No known drug allergies. HOME MEDICATIONS: 1. Albuterol nebulizers every 4 to 6 hours p.r.n. 2. Fluconazole 4 tablets once a week. 3. Phenergan 12.5 mg p.o. every 6 hours p.r.n. 4. Spiriva 2 puffs inhaled daily. 5. Triumeq 600--50--300 one tab p.o. daily. REVIEW OF SYSTEMS: Fourteen point review of systems are complete and all were negative, except for those mentioned above in the HPI. PHYSICAL EXAMINATION: VITAL SIGNS: Temperature 98.2 degrees, heart rate 107, respiratory rate 24, blood pressure 92/67, O2 saturation 98% on 2 L. GENERAL: Ms. Etta Cordoba is a 53-year-old very emaciated female. She is in no acute distress. She is able to answer questions appropriately. HEENT: Atraumatic, normocephalic. Pupils equal, round, reactive to light. Extraocular movements intact. Mucous membranes are dry. She has thrush or candidiasis on the tongue, and she has sunken-in facial structures secondary to the significant anorexia. NECK: Trachea midline. CARDIOVASCULAR: S1, S2. Tachycardic rate and rhythm. No rubs, gallops, murmurs. No lower extremity edema. There are +1 dorsalis pedal pulses, +2 radial pulses. Negative JVD and carotid bruits. PULMONARY: Clear to auscultation. Bilateral breath sounds. Decreased in the bases. No accessory muscle use or work of breathing noted. Tolerating nasal cannula. GI: Cachectic. Concave. Abdomen soft, nontender. Positive bowel sounds x4, but hypoactive. EXTREMITIES: Decreased range of motion. There is 4/5 strength in all extremities NEUROLOGIC: A and O x3. Follows commands. Sensory is intact. SKIN: Warm, dry, intact. LABORATORY DATA: White blood cells 7000, hemoglobin 9, hematocrit 28, platelet count 390. INR is 1.02. PTT is 26.9. Sodium 137, potassium 2.6. BUN 23, creatinine 1.2 glucose 74, calcium 8.2, bilirubin 0.62. AST 24, ALT 6, CK 39, troponins less than 0.01. Albumin 3.0. Lactate 1.8, 50 protein, trace blood. IMAGIN. Chest x-ray: Severe COPD and bilateral infiltrates suggesting bronchopneumonia. 2. EKG: Normal sinus rhythm, rate 97, QTc 386. ASSESSMENT/PLAN: 1. Bronchopneumonia. She has been started on Rocephin, started on some intravenous fluids. 2. Chronic hypoxemic respiratory failure. Will treat the underlying pneumonia. Continue on supplemental oxygen. 3. Chronic obstructive pulmonary disease. No exacerbation, but nebulizers are initiated. 4. Acute kidney injury secondary to dehydration. She has been started on intravenous fluids. 5. Severe protein calorie malnutrition and anorexia with complaints of nausea and no appetite. Will start TPN and consult with the recenterer. 6. Human immunodeficiency virus for 30+ years now, acquired immunodeficiency syndrome according to her. We will continue her triple therapy. 7. Cocaine dependence. She just recently used 2 days ago. Cessation was discussed. 8. Tobacco abuse. Cessation discussed. 9. Hard of hearing. She has wax inside of her ears; I had some oil eardrops. 10. Deep vein thrombosis prophylaxis. Sequential compression devices. Dictated by MADHAVI Pitt for Leela Alexandre MD cc: MADHAVI Pitt MD I performed a face to face encounter on the patient. I reviewed all labs and imaging on the patient. I agree with the H&P as dictated. MTDD
[2019-06-27] MEDS ORDERED: ZOFRAN IV PRN (16:50)
[2019-06-27] MEDS: SODIUM CHLORIDE 0.9% INJ SCH (17:05)
[2019-06-27] MEDS: NS 1,000 ML IV SCH (17:05)
[2019-06-27] MEDS: PROTONIX IV SCH (17:06)
[2019-06-27] MEDS: MYCOSTATIN SUSP PO SCH ×2 (17:17→21:46)
--- NOTE | 2019-06-27 18:49 | GASTROENTEROLOGY CONSULTATION ---
DATE: 06/27/2019 REASON FOR CONSULTATION: Anorexia, nausea, vomiting. HISTORY OF PRESENT ILLNESS: Ms. Cordoba is a 53-year-old female who weighs around 62 pounds. She states that she has been having this problem of nausea, no appetite and trouble swallowing. She feels that she has lost almost 60 pounds in 3 to 4 months. Previously, her weight was 120 pounds. She feels weak, dizzy, no energy. She is hard of hearing, has a history of COPD and has AIDS, complained of shortness of breath, chills but denied having fever. She uses oxygen 2 L NC at home. PAST MEDICAL HISTORY: The patient has HIV transitioned to AIDS. She has nausea, vomiting, anorexia, COPD, marijuana abuse, tobacco abuse. SURGICAL HISTORY: Appendectomy, cholecystectomy, and surgery on the left arm. SOCIAL HISTORY: She is , has 1 son. She is a smoker, smokes 3 cigarettes a day and also has marijuana. Denies having alcohol. FAMILY HISTORY: No significant GI malignancies. ALLERGIES: No known drug allergies. HOME MEDICATIONS: Triumeg, albuterol, fluconazole, Phenergan and Spiriva. REVIEW OF SYSTEMS: As per HPI, otherwise 12 point review of systems is negative. PHYSICAL EXAMINATION: Vital Signs: Temperature 97.4 degrees, pulse is 98, respirations 16, blood pressure is 112/64, oxygen is 97. She is on 2 L nasal cannula. General: She is alert, oriented x2, has cachexia, and in no acute distress. She is answering questions appropriately. HEENT: Pale conjunctivae. No icterus. Sunken eyeballs. PERRL. Neck: Supple. Lungs: Wheezing heard in the anterior lower bases. Cardiovascular: Regular rate and rhythm. No rubs, murmurs, or gallops heard on auscultation. Abdomen: Soft, nondistended, and nontender. Active bowel sounds heard in all 4 quadrants. Extremities: No clubbing, no cyanosis, no edema. Pedal pulses 2+ present bilaterally. Neurologic: Alert, oriented x2, nonfocal. Cranial nerves II to XII grossly intact. LABORATORY DATA: WBC 7.77, RBC 3.26, hemoglobin 9.1, hematocrit is 28.4, platelet count is 390,000. Chemistry: Sodium 137, potassium 2.6, chloride 94, carbon dioxide is 27, anion gap 16, BUN 23, creatinine is 1.2, calcium is 8.2, total bilirubin 0.62, AST 24, ALT 6, alkaline phosphate 127. Urinalysis showed trace of protein, trace of blood. Chest x-ray showed severe COPD, bilateral infiltrates suggesting bronchopneumonia. ASSESSMENT AND PLAN: Anorexia Nausea & Vomiting Severe protein malnutrition Dehydration HIV for 30 years transitioned to AIDS Drug abuse Tobacco abuse PLAN: The plan is to place a PICC line and start her on TPN for her nutrition. We will start her on IV protonix 40 mg BID, antiemetic Zofran PRN for nausea and vomiting. Patient is taking Triumeg for her HIV treatment. We have ordered a CT of the abdomen and pelvis. Patient is receiving IV fluids NS @ 75 mls/hr for dehydration, we will continue to monitor patients CBC & BMP, follow the plan of care per PCP, awaiting the CT scan results for further plan of care. This plan of care was discussed with Dr. Leigh. Thank you for your consult. Please call us for further questions or concerns. Dictated by MADHAVI Arriola for Opal Leigh MD cc: Opal Leigh MD [facility]
[2019-06-27] MEDS ORDERED: KLOR-CON PO ONE (19:54)
[2019-06-27] MEDS: PULMICORT INH SCH (20:08)
--- NOTE | 2019-06-27 20:23 | Diag Imaging Result Doc PS360 ---
EXAM: CT THORAX/ABD/PELVIS W/O CON INDICATION: anorexia nausea vomiting pna HIV TECHNIQUE: This exam was performed using automated exposure control, adjustment of mA or kV according to patient size, and/or use of iterative reconstruction technique. COMPARISON: 04/10/2019 FINDINGS: CHEST: There is severe pulmonary emphysema. There are patchy airspace consolidations throughout the mid and lower lung zones including multiple tree-in-bud opacities suggesting pneumonia and bronchiolitis, likely an atypical pneumonia. Tree-in-bud opacities were also seen on the previous study. However, it has worsened. There is no pleural fluid collection and no pneumothorax. There is no cardiomegaly. There are shotty mediastinal lymph nodes that are approximately stable but are difficult to evaluate with no IV contrast. ABDOMEN/PELVIS: Evaluation of the abdomen and pelvis is especially limited with no IV contrast as the patient is cachectic and there is very little intra-abdominal fat the viscera. There has been a prior cholecystectomy. The liver and spleen are grossly unremarkable as imaged. The pancreas is not well seen. The adrenal glands are not well seen. The kidneys are barely visualized but they appear to be unremarkable. There is a significant amount of gas in the lumen of the urinary bladder. This may have been introduced via a recent catheter. Please correlate clinically. No definite bladder wall thickening is appreciated. There is no obstructive bowel pattern. As imaged, the GI tract is grossly unremarkable. No free abdominal gas is appreciated. IMPRESSION: 1.Advanced pulmonary emphysema. 2.Patchy airspace consolidation throughout the mid and lower lung zones bilaterally with tree-in-bud opacities most consistent with an atypical pneumonia that has worsened since the previous study. 3.Very limited abdominal and pelvis CT due to the severe cachexia and lack of IV contrast. 4.Significant amount of air in the urinary bladder lumen that may have been a recent catheter. Please correlate clinically. 5.No definite acute abdominal or pelvic pathology, otherwise, given the significant limitation of the study. Electronically signed by Audie Cardozo 06/27/2019 8:21 PM
[2019-06-27] MEDS: XOPENEX NEB INH SCH (21:09)
[2019-06-27] MEDS: ZYVOX 600 MG/D5W 600 MG/300 ML IVPB IV SCH (21:44)
[2019-06-28] MEDS: MAXIPIME 1 GM in NS 50 ML IV SCH ×3 (01:58→12:17)
[2019-06-28] MEDS: DEBROX OTIC DROPS BOTH EARS SCH ×3 (02:00→20:21)
[2019-06-28] MEDS: XOPENEX NEB INH SCH ×4 (03:07→22:47)
[2019-06-28] MEDS: SODIUM CHLORIDE 0.9% INJ SCH ×2 (03:45→16:52)
[2019-06-28] MEDS: PROTONIX IV SCH ×2 (03:45→16:51)
[2019-06-28 04:17] LABS: ALLEN TEST YES; BE 3.9 mmoll (-3.0-3.0); BLOOD TYPE ARTERIAL; HCO3-(ACT) 27.9 mmoll (20.0-26.0); METHB 0.4 % (0.0-1.5); O2(CT) 9.2 mL/dL (15.0-23.0); O2HB 90.5 % (95.0-99.0); PCO2(98.6) 35 mmHg (35-45); PO2(98.6) 55 mmHg (60-100); SAMPLE BLOOD; SAO2 91.3 % (95.0-100.0); THB 7.2 g/dL (11.5-17.4)
[2019-06-28 04:19] LABS: MODALITY ROOM AIR
[2019-06-28 06:26] LABS: ALB/GLOB RATIO 0.5; ALBUMIN 2.1 g/dL (3.5-5.0); CALCIUM 7.4 mg/dL (8.8-10.2); POTASSIUM 2.3 mmol/L (3.5-5.1); TOTAL BILIRUBIN 0.24 mg/dL (0.20-1.00); TOTAL PROTEIN 6.2 g/dL (6.3-8.3)
[2019-06-28 06:32] LABS: FERRITIN 891 ng/mL (13-150)
[2019-06-28 06:40] LABS: HEMATOCRIT 21.8 % (37.0-47.0); HEMOGLOBIN 7.1 g/dL (12.0-16.0); IMM GRAN# 0.05 X1000 (0.0-0.04); IMM GRAN% 0.9 % (0.0-0.5); LYMPH# 0.35 X1000 (1.2-3.4); LYMPH% 6.6 % (20.5-51.1); MCH 28.5 PG (27-31); MCHC 32.6 g/dL (33-37); MCV 87.6 FL (81-99); MONO# 0.45 X1000 (0.11-0.59); MONO% 8.4 % (1.7-9.3); MPV 9.4 FL (7.4-10.4); NEUT# 4.48 X1000 (1.4-6.5); NEUT% 84.1 % (42.2-75.2); PLT 293 X1000 (130-400); RBC 2.49 XMIL (4.2-5.4); RDW 14.6 % (11.5-14.5); WBC 5.33 X1000 (4.8-10.8)
[2019-06-28] MEDS ORDERED: POTASSIUM CHLORIDE 60 MEQ in NS 500 ML IV ONE ×2 (06:41→18:20)
[2019-06-28] MEDS ORDERED: NS 500 ML IV ONE (06:44)
[2019-06-28] MEDS ORDERED: TRIMETHOPRIM IV SCH ×2 (06:45→07:00)
[2019-06-28] MEDS ORDERED: POTASSIUM CHLORIDE 40 MEQ in NS 500 ML IV ONE (06:45)
[2019-06-28] MEDS ORDERED: SULFAMETHOXAZOLE IV SCH ×2 (06:45→07:00)
[2019-06-28] MEDS ORDERED: KLOR-CON PO ONE (06:46)
[2019-06-28 07:02] LABS: MAGNESIUM 1.5 mg/dL (1.5-2.7); PHOSPHORUS 1.9 mg/dL (2.7-4.5)
[2019-06-28] MEDS ORDERED: MAGNESIUM SULFATE 2 GM/S.W.I. 2 GM/50 ML IVPB IV ONE (07:03)
[2019-06-28] MEDS ORDERED: SODIUM PHOSPHATE 40 MMOL in NS 250 ML IV ONE (07:03)
[2019-06-28] MEDS: PULMICORT INH SCH ×2 (08:16→22:48)
[2019-06-28] MEDS: POTASSIUM CHLORIDE 60 MEQ in NS 500 ML IV ONE ×2 (08:20→11:59)
[2019-06-28] MEDS ORDERED: SEPTRA DS PO SCH (09:00)
[2019-06-28] MEDS ORDERED: PATIENT'S OWN MED PO SCH (09:00)
[2019-06-28] MEDS ORDERED: VITAMIN D PO SCH (09:00)
[2019-06-28] MEDS: PREDNISONE PO SCH ×2 (09:40→20:18)
[2019-06-28] MEDS: MYCOSTATIN SUSP PO SCH ×4 (09:40→20:18)
[2019-06-28] MEDS: DIFLUCAN PO SCH (09:41)
[2019-06-28] MEDS: FOLIC ACID PO SCH (09:42)
[2019-06-28] MEDS: D5W IV SCH ×2 (10:03→20:20)
[2019-06-28] MEDS: SEPTRA IV SCH ×2 (10:03→20:20)
[2019-06-28] MEDS ORDERED: NS 250 ML ONE (10:18)
[2019-06-28] MEDS: NS 1,000 ML IV SCH (12:00)
[2019-06-28] MEDS: ZYVOX 600 MG/D5W 600 MG/300 ML IVPB IV SCH (12:23)
[2019-06-28] MEDS ORDERED: ROCEPHIN 1 GM in NS 50 ML IV SCH (15:00)
[2019-06-28] MEDS: NS NEB INH SCH (15:05)
[2019-06-28] MEDS ORDERED: CLINIMIX E 4.25%-5% SOLUTION 1,000 ML IV SCH (15:30)
--- NOTE | 2019-06-28 16:52 | PULMONOLOGY CONSULTATION ---
DATE: 06/28/2019 REASON FOR CONSULTATION: Pneumonia and HIV. REQUESTED BY: Dr. Alexandre. Exclude Pneumocystis requested by Dr. Butler. HISTORY OF PRESENT ILLNESS: Ms. Cordoba is a 53-year-old female with a long history of HIV, severe COPD with ongoing tobacco use, ongoing cocaine use, who presented to the emergency room with pneumonia and anorexia. Chest x-ray was performed which revealed patchy bilateral infiltrates along with severe COPD. She underwent a CT scan of the thorax, abdomen and pelvis. She has patchy bibasilar infiltrates, which has worsened since 04/10/2019. She has lost approximately 30 pounds over the last 3 months. The patient reports she has had severe esophagitis and has had difficulty with eating. She does have cough with some sputum production. She has shortness of breath with subjective fevers. PAST MEDICAL HISTORY: 1. HIV. The patient is followed in [facility] and she is on anti-retroviral therapy. 2. COPD with chronic hypoxemic respiratory failure. 3. Ongoing cocaine use. 4. Medical noncompliance. 5. Depression. 6. Difficulty hearing. 7. Status post cholecystectomy. 8. Status post appendectomy. SOCIAL HISTORY: The patient continues to smoke and use cocaine. She denies alcohol use. REVIEW OF SYSTEMS: As noted in the HPI. PHYSICAL EXAMINATION: General: Reveals a frail and emaciated, skeletal appearing white female who weighs 63 pounds and has a BMI of 11. Vital signs: The patient has been afebrile for the last 24 hours. Blood pressure 101/65, heart rate 93, respiratory rate 23, oxygen saturation 100% on 3 L per nasal cannula. HEENT: Pupils are equal and reactive. Oropharynx appears clear. Neck: Supple. Chest: Reveals prolonged expiratory phase with occasional rhonchi. Cardiac: Regular rate. Normal S1, normal S2. Abdomen: Scaphoid and soft. Extremities: Reveal marked muscle wasting. LABORATORIES: CT scan of the thorax is reviewed. The patient some nonspecific patchy infiltrates with some areas of consolidation bilaterally. She does not have ground-glass changes to suggest Pneumocystis. IMPRESSION: 53-year-old with 1. Severe chronic obstructive pulmonary disease with ongoing tobacco use. 2. Chronic hypoxemic respiratory failure. 3. Patchy nonspecific infiltrates with areas of consolidation. 4. Human immunodeficiency virus. 5. Cachexia with severe muscle wasting. DISCUSSION: This is a 53-year-old with problems outlined above. The patient has chronic hypoxemic respiratory failure without recent change in oxygen requirement. Current CT scan does not appear to represent Pneumocystis but she is immunocompromised. She clearly has some patchy areas of infiltrates and this could represent a bacterial infection or an atypical infection such as mycobacterium avium complex disease or fungal disease. RECOMMENDATIONS: 1. Continue broad-spectrum antibiotics. 2. Attempt to collect sputum for C and S. 3. Agree with GI evaluation given her severe cachexia. 4. Encourage smoking cessation and cocaine avoidance. 5. Consider bronchoscopy if she does not have clinical improvement with routine treatment or at the request of Infectious Disease. cc: Delmar Carr MD
[2019-06-28] MEDS ORDERED: D10W 1,000 ML IV PRN (17:00)
[2019-06-28] MEDS: POTASSIUM CHLORIDE IV SCH ×9 (17:28)
[2019-06-28] MEDS: TPN ELECTROLYTES IV SCH ×9 (17:28)
[2019-06-28] MEDS: [UNRECOGNIZED DRUG - OTHER] IV SCH ×9 (17:28)
[2019-06-28] MEDS: MAGNESIUM SULFATE IV SCH ×9 (17:28)
[2019-06-28] MEDS: LIPOSYN 20% 250 ML IV SCH (17:29)
--- NOTE | 2019-06-28 18:12 | PROGRESS NOTE ---
DATE: 06/28/2019 SUBJECTIVE: The patient is sitting up, eating lunch. She complains of persistent diarrhea and coughing. OBJECTIVE: Vital Signs: Temperature 98.3 degrees, blood pressure 97/70, heart rate 85, respirations 20, O2 saturation is 100% on 3 L nasal cannula. General: This is a chronically ill- appearing female, lying in bed in no acute distress. Heart: S1, S2 normal. Regular rate and rhythm. Lungs: Coarse breath sounds. Abdomen: Positive bowel sounds. Soft. Extremities: No edema. No cyanosis. Neurologic: The patient is alert and oriented x4. LABORATORY DATA: White blood cell count 5.3, hemoglobin 7.1, hematocrit 21, platelets 293,000. Chemistries: Sodium 138, potassium 2.3, chloride 102, CO2 of 25, BUN 17, creatinine 1, glucose 93, phosphorus 1.9, magnesium 1.5. ASSESSMENT AND PLAN: 1. Chronic hypoxemic respiratory failure. Continue on supplemental oxygen. 2. Atypical pneumonia. Continue with broad-spectrum antibiotic therapy. Will consult with ID and Pulmonary Medicine. 3. Severe cachexia. We will start the patient on TPN. Also, GI has been consulted. 4. Diarrhea. We will check stool studies. We will also keep the patient hydrated. 5. Hypokalemia. We will replace patient's potassium. 6. Hypomagnesemia. We will replace patient's magnesium. 7. Hypophosphatemia. We will replace patient's phosphorus. 8. Human immunodeficiency virus. Continue on Triumeq. We will also consult with ID. 9. Severe emphysema. Continue on bronchodilator therapy and supplemental oxygen. 10. Vitamin D deficiency. We will start the patient on vitamin D replacement. 11. Folate deficiency. The patient is now on folic acid replacement 12. Gastrointestinal prophylaxis. Continue on IV Protonix. 13. Deep vein thrombosis prophylaxis. We will start the patient on Lovenox. cc: Leela Alexandre MD MTDD
--- NOTE | 2019-06-28 18:45 | GASTROENTEROLOGY PROGRESS NOTE ---
DATE: 06/28/2019 ATTENDING PHYSICIAN: Dr. Alexandre. SUBJECTIVE: Patient resting in bed. She is complaining of shortness of breath. She has nebulizer treatments. She denies any nausea or vomiting. She had a liquid bowel movement today. She denies any nausea, vomiting, vomiting blood, or passing blood in the stools OBJECTIVE: Vital signs: Temperature 97.9, pulse 91, respiratory rate 21, blood pressure 100/57, saturating 100% on 3 L nasal cannula. Body weight of 63 pounds 3 ounces. BMI 11.2 kg/m2. General: The patient is thinly built, lying in bed in mild respiratory distress. She is getting a nebulizer treatment. HEENT: Positive pallor. No icterus. Face mask in place. Tachypneic. Neck: Showing signs of tachypnea. Abdomen: Emaciated. No guarding. No rebound. Nontender. Extremities: No cyanosis, no clubbing. Lack of muscle mass in the upper and lower extremities. Neurologic: Alert, awake, oriented x3. LABS: Hemoglobin and hematocrit are 7.1 and 21.9, white count of 5.3, platelet count of 293. She had a pH of 7.5, pCO2 of 35, pO2 of 55. This is on room air. Sodium 139, potassium 3.3, chloride 102, bicarb 25, anion gap 11, BUN of 17, creatinine 1.0, glucose of 93. Calcium is 7.4, phosphorus 1.9. Magnesium 1.5. Iron of 26. Percent saturation 23, ferritin of 891. AST 17, ALT 5, alkaline phosphatase 92. Total protein is 6.2, albumin of 2.1. Folate of 3.1. B12 of 361. Blood cultures x2 were drawn from yesterday. They are currently pending. [id number] CT scan showed advanced pulmonary emphysema, patchy airway consolidation throughout the mid and lower lung zones bilaterally with tree-in-bud opacities most consistent with atypical pneumonia which has worsened since the previous study. Very limited abdominal-pelvic CT due to severe cachexia and lack of IV contrast. There was a significant amount of air in the urinary bladder lumen that may have been a recent catheter. No definite acute abdominal or pelvic pathology otherwise, given the significant limitation of the study. IMPRESSION: 1. Anorexia. 2. Nausea and vomiting. 3. Severe protein calorie malnutrition. 4. Diarrhea. 5. Dehydration. 6. Human immunodeficiency virus for 30 years, transitioned to acquired immunodeficiency syndrome. 7. Drug abuse. 8. Tobacco abuse. 9. Pneumonia. This is likely an atypical pneumonia. Need to rule out Pneumocystis jirovecii. RECOMMENDATIONS: 1. Will continue with Protonix b.i.d. Continue IV antiemetics. 2. We will call a pulmonary consult, evaluate for Pneumocystis pneumonia. 3. Infectious Disease consult has been placed. We will check stool studies. She will continue on IV fluids and IV antibiotics. She is on oral Diflucan and oral nystatin. She is also on sulfamethoxazole and linezolid. She is on Xopenex inhalation every 6 hours. She is also on IV cefepime. CD4 count has been ordered. She in on Ensure and a regular diet. We will start her on Clinimix as well. She may benefit from TPN, but this will be decided by the primary care team. 4. Gastrointestinal prophylaxis with PPIs. The above plans were discussed with the patient and the nursing staff, and all questions answered. Please call us with any further questions. cc: Rolando Butler MD
[2019-06-28] MEDS: LOVENOX SUBQ SCH (20:20)
[2019-06-28] MEDS: ICAR-C PO SCH (20:20)
[2019-06-29] MEDS: ZYVOX 600 MG/D5W 600 MG/300 ML IVPB IV SCH ×3 (01:42→23:31)
[2019-06-29] MEDS: MAXIPIME 1 GM in NS 50 ML IV SCH ×3 (01:42→23:31)
[2019-06-29] MEDS: XOPENEX NEB INH SCH ×4 (04:07→22:52)
[2019-06-29] MEDS: PROTONIX IV SCH ×2 (05:17→17:30)
[2019-06-29 06:56] LABS: HEMOGLOBIN 7.3 g/dL (12.0-16.0); IMM GRAN# 0.04 X1000 (0.0-0.04); LYMPH# 0.17 X1000 (1.2-3.4); LYMPH% 4.5 % (20.5-51.1); MCH 27.7 PG (27-31); MCHC 31.7 g/dL (33-37); MCV 87.1 FL (81-99); MONO# 0.27 X1000 (0.11-0.59); MONO% 7.1 % (1.7-9.3); MPV 9.5 FL (7.4-10.4); NEUT# 3.33 X1000 (1.4-6.5); NEUT% 87.4 % (42.2-75.2); PLT 209 X1000 (130-400); RBC 2.64 XMIL (4.2-5.4); RDW 14.2 % (11.5-14.5); WBC 3.81 X1000 (4.8-10.8)
[2019-06-29 07:01] LABS: HEMOGLOBIN A1C 4.8 % (4.8-6.0)
[2019-06-29 07:04] LABS: ALB/GLOB RATIO 0.6; ALBUMIN 2.2 g/dL (3.5-5.0); BANDS 2 % (0-1); DIRECT BILIRUBIN 0.1 mg/dL (0.00-0.20); HYPOCHROM 1+; LYMPHS 10 % (21-51); MONO 2 % (1-9); SEGS 86 % (42-75); TOTAL BILIRUBIN 0.17 mg/dL (0.20-1.00); TOTAL PROTEIN 5.7 g/dL (6.3-8.3)
[2019-06-29 07:08] LABS: AGAP 10; BUN 11 mg/dL (8-22); CALCIUM 6.8 mg/dL (8.8-10.2); CHLORIDE 102 mmol/L (98-107); CHOLESTEROL 81 mg/dL (0-200); COSMO 270; CREATININE 0.8 mg/dL (0.5-0.9); ESTIMATED GFR > 60; GLUCOSE 111 mg/dL (70-104); MAGNESIUM 1.8 mg/dL (1.5-2.7); PHOSPHORUS 2.7 mg/dL (2.7-4.5); POTASSIUM 3.7 mmol/L (3.5-5.1); SODIUM 135 mmol/L (136-145); TCO2 23 mmol/L (25-35); TRIGLYCERIDES 80 mg/dL (35-135)
[2019-06-29 07:21] LABS: PREALBUMIN 6.3 mg/dL (20-40)
[2019-06-29] MEDS ORDERED: CALCIUM GLUCONATE 1 GM in NS 50 ML IV ONE (07:29)
[2019-06-29] MEDS: PULMICORT INH SCH ×2 (08:25→22:52)
[2019-06-29] MEDS: DEBROX OTIC DROPS BOTH EARS SCH ×2 (09:16→20:15)
[2019-06-29] MEDS: MYCOSTATIN SUSP PO SCH ×4 (09:16→20:15)
[2019-06-29] MEDS: PREDNISONE PO SCH ×2 (09:17→21:05)
[2019-06-29] MEDS: DIFLUCAN PO SCH (09:17)
[2019-06-29] MEDS: ICAR-C PO SCH ×2 (09:17→20:14)
[2019-06-29] MEDS: CENTRUM SILVER PO SCH (09:17)
[2019-06-29] MEDS: FOLIC ACID PO SCH (09:17)
[2019-06-29] MEDS: NON-FORMULARY MED PO SCH (09:24)
[2019-06-29] MEDS: D5W IV SCH ×2 (09:33→20:11)
[2019-06-29] MEDS: SEPTRA IV SCH ×2 (09:33→20:11)
--- NOTE | 2019-06-29 10:38 | INFECTIOUS DISEASE CONSULT REP ---
DATE: 06/29/2019 CONCLUSION: The patient has HIV infection. She is being followed for by [facility]. She is noncompliant and as regarding her anti-retroviral therapy which is Triumeq. It may well be that the organisms are resistant to it because of the patient's noncompliance. The patient is complaining of diarrhea and studies for diarrhea have been ordered but have not been collected because the patient apparently even though she says she has diarrhea she has not been passing loose stools as she said she had. The patient has bilateral pulmonary infiltrates, most likely due to infection and certainly Pneumocystis is a possibility as are bacterial organisms. The patient also has had oral candidiasis. RECOMMENDATIONS: I agree with continuing the patient's anti-retroviral therapy namely Triumeq. Also, I agree with placing the patient on Septra for possible Pneumocystis infection. I agree also with treating with Zyvox and cefepime for possible bacterial pneumonia. Finally, I agree with fluconazole and nystatin because of the patient's problem with oral candidiasis. DISCUSSION: The patient tells me that she has been anorectic she and she is losing weight. She tells me that she has diarrhea and nausea. She also told me that she is not taking her medicine on a regular basis. The patient's lab studies thus far a CBC shows a white count of 3810, hemoglobin 7.3, and platelet count 209,000. Blood gases show a pH of 7.5 a PO2 of and a pCO2 of 35. Creatinine is 0.8, GFR is greater than 60. Liver function studies are normal. Urinalysis shows no white cells or bacteria. Blood cultures are negative. Stool studies including [employer], O P, and C diff studies have been ordered but none have been collected. CT scan of the chest, abdomen, and pelvis shows emphysema and bilateral consolidation. [employer] HISTORY: The patient is a 1 para 1 AB 0. REVIEW OF SYSTEMS: Eyes and ears she has decreased vision and hearing. Neck no stiffness. Respiratory and GI: See present illness. : No dysuria or flank pain. Neurologic no seizures. The patient has generalized weakness. Integument: No rashes. PREVIOUS HOSPITALIZATIONS AND OPERATIONS: The patient has had labor and delivery, a tubal ligation, an appendectomy, a cholecystectomy, and open reduction/ internal fixation of the left arm. MEDICAL DISEASES: Positive for HIV infection and depression, COPD, medical noncompliance, drug abuse, and decreased hearing and vision. INFECTIOUS DISEASE HISTORY: Positive for pneumonia, urinary tract infection, oral candidiasis, and HIV infection. SOCIAL HISTORY: The patient is . She has a dog as a pet. The patient is on disability. She smokes cigarettes but denies drinking alcoholic beverages. She also uses illicit drugs, specifically cocaine. FAMILY HISTORY: The negative for diabetes, heart attack and stroke. DRUG ALLERGIES: No known drug allergies. MEDICINES: Taken at home include the include Triumeq, albuterol inhaler, fluconazole, Phenergan and Spiriva. It should be noted that the patient is noncompliant with her medications. PHYSICAL EXAMINATION: Vital Signs: Temperature is 98 degrees, pulse 89, respirations 20, blood pressure 134/66. The patient is 74 pounds. General: This is a chronically ill and malnourished- appearing, middle-aged female. She is dyspneic at rest. Head/eyes/ears/nose/throat: She has decreased vision and hearing. I did not notice any white patches in her mouth. Neck: No meningismus. Thorax: Increased AP diameter of the chest. Lungs: Distant breath sounds. I did not hear rales or wheezes. Cardiovascular: Heart sounds are distant. They are regular. Abdomen: Soft and nontender. Neurologic: The patient is awake. She has decreased hearing and vision. She has generalized weakness. There is no tremor. Integument: No rash. Thank you for the consult. cc: Chao Adams MD
[2019-06-29] MEDS: HUMULIN R SUBQ SCH ×3 (11:37→20:17)
[2019-06-29] MEDS ORDERED: MAGNESIUM SULFATE 1 GM/D5W 1 GM/100 ML IVPB IV ONE (13:06)
--- NOTE | 2019-06-29 14:01 | PROGRESS NOTE ---
DATE: 06/29/2019 SUBJECTIVE: The patient states she has she has been feeling hungry, and her appetite has improved. She has several snacks at her bedside. She states that she has not had a bowel movement since admission. OBJECTIVE: Vital Signs: Temperature 98 degrees, blood pressure 134/66, heart rate 69, respirations 20, O2 saturations 96% on 2 L nasal cannula. General: This is a cachectic elderly female lying in bed in no acute distress. Heart: S1, S2. Normal. Lungs: Equal air entry bilaterally. No wheezing. No rales. Abdomen: Positive bowel sounds. Soft, nontender, nondistended. Extremities: No edema. No cyanosis. No calf tenderness. Neurologic: The patient is alert and oriented x4. LABS: White blood cell count 3.8, hemoglobin 7.3, hematocrit 23, platelets 209,000. Sodium 135, potassium 3.7, chloride 102, CO2 23, BUN 11, creatinine 0.8, glucose 108. Albumin 2.2, calcium 6.8, magnesium 1.9, phosphorus 2.7. ASSESSMENT AND PLAN: 1. Chronic hypoxemic respiratory failure. Continue to treat the underlying pneumonia. 2. Atypical pneumonia. Continue with broad-spectrum antibiotic coverage. ID and Pulmonary are following. 3. Severe cachexia. The patient is currently on TPN. Continue with meal supplementation. 4. Human immunodeficiency virus. Continue on Triumeq. 5. Severe emphysema. Aware. Continue supplemental oxygen. 6. Vitamin D deficiency. Continue vitamin D replacement. 7. Folate deficiency. Continue folic acid replacement. 8. Severe protein calorie malnutrition. Continue with TPN. 9. Diarrhea. Stool studies are pending. 10. Deep vein thrombosis prophylaxis. Continue on Lovenox. cc: Leela Alexandre MD [facility]
--- NOTE | 2019-06-29 16:31 | GASTROENTEROLOGY PROGRESS NOTE ---
DATE: 06/29/2019 SUBJECTIVE: Patient resting in bed. She is feeling better. Her appetite is improved. She is able to keep Ensure down and able to eat her food down. She denies any nausea, vomiting, or dysphagia. She has some diarrhea, but her stool sample could not be collected. She denies any vomiting blood, passing blood in the stools. PHYSICAL EXAMINATION: Vital signs: Temperature 98.1 degrees, pulse of 86, respiratory rate 16, blood pressure 134/71, saturating 99% on nasal cannula. Body weight of 74 pounds, BMI of 13.1 kg. General: Thinly built, lying in bed, in no acute distress. HEENT: Pale conjunctivae. No icterus. Neck: Supple. Abdomen: Emaciated. No guarding or rebound. Extremities: No cyanosis, clubbing. Loss of muscle mass in upper and lower extremities. Neurologic: He is alert, awake, oriented x3. LABS: Hemoglobin and hematocrit are 7.3 and 23, white count of 3.81, platelet count of 209,000. Sodium 139, potassium 3.7, chloride 102, bicarb 23, anion gap 10, BUN of 11, creatinine 0.8, glucose of 108. Calcium is 6.8, phosphorus 2.7, magnesium 1.8. Total bilirubin is 0.17, direct of 0.1, AST 16, ALT 6, alkaline phosphatase of 84, total protein 5.7, albumin of 6.3. Blood culture x2 negative for 48 hours. IMPRESSION AND PLAN: 1. Diarrhea. We will follow up on the stool studies. I spoke to the patient's nurse so that we can clear the stool specimen. The last stool specimen was contaminated with urine so could not be collected. 2. Dysphagia, improving with the medications. She is on fluconazole, nystatin, and PPIs. We will hold off on any kind of intervention at the moment as patient is eating better. 3. Chronic hypoxic respiratory failure. Continue to treat the underlying pneumonia. 4. Atypical pneumonia. She is on broad-spectrum antibiotics per Infectious Disease. ID and Pulmonary are following. 5. Severe cachexia. She is currently on TPN. Continue with meal supplementation with Ensure 3 times daily. 6. Human immunodeficiency virus. She is on HAART medication. 7. Severe emphysema. Continue supplemental oxygen. 8. Vitamin D deficiency. She is on vitamin D replacement. 9. Deep venous thrombosis prophylaxis with Lovenox. 10. Gastrointestinal prophylaxis. PPIs. 11. Tobacco abuse. Patient counseled to quit smoking completely. 12. History of drug abuse. The patient was counseled about quitting drug abuse. No plans for any intervention at the moment. We will follow along. The above plans discussed with the patient and all questions answered. Please call us with any further questions. cc: MD Leela Varghese MD Leroy F. Harris, MD James E. Boyle, MD MTDD
[2019-06-29] MEDS: POTASSIUM CHLORIDE IV SCH ×9 (17:30)
[2019-06-29] MEDS: LIPOSYN 20% 250 ML IV SCH (17:30)
[2019-06-29] MEDS: TPN ELECTROLYTES IV SCH ×9 (17:30)
[2019-06-29] MEDS: MAGNESIUM SULFATE IV SCH ×9 (17:30)
[2019-06-29] MEDS: [UNRECOGNIZED DRUG - OTHER] IV SCH ×9 (17:30)
[2019-06-29] MEDS: SODIUM CHLORIDE 0.9% INJ SCH (17:31)
--- NOTE | 2019-06-29 17:51 | PULMONOLOGY PROGRESS NOTE ---
DATE: 06/29/2019 SUBJECTIVE: The patient is awake, alert, and conversant. She reports her appetite is improving. She has a cough which is nonproductive currently. She reports her shortness of breath has diminished. OBJECTIVE: Vital Signs: The patient has been afebrile for the last 24 hours. Blood pressure 134/66, heart rate 69, respiratory rate 18, oxygen saturation 96% on 2 L per nasal cannula. HEENT: Pupils are equal and reactive. Oropharynx is clear. Neck: Supple. Chest: Reveals occasional rhonchi bilaterally with prolonged expiratory phase. Cardiac: S1-S2. Abdomen: Scaphoid and soft. Extremities: Reveal significant muscle wasting. LABORATORY DATA: No new microbiology available. White blood count 3.8, hemoglobin 7.3, platelet count 209,000. Sodium 135, potassium 3.7, chloride 102, bicarbonate 23, BUN 11, creatinine 0.8. Glucose 111. Prealbumin 6.3. IMPRESSION: A 53-year-old with: 1. Severe chronic obstructive pulmonary disease with ongoing nicotine addiction and tobacco use. 2. Chronic hypoxemic respiratory failure. 3. Pneumonia. Radiographic findings are more consistent with acid fast bacillus or bacterial pathogens and less likely to be consistent with Pneumocystis. 4. Human immunodeficiency virus with noncompliance to medications per Dr. Adams's note. 5. Cachexia with severe muscle wasting. PLAN: 1. Continue broad-spectrum antibiotics. 2. Continue bronchial hygiene. 3. Collect sputum if she can provide a sample. 4. Ongoing GI evaluation and management for severe cachexia. 5. Encourage smoking cessation. 6. Obtain 2-view chest x-ray tomorrow. 7. We will proceed with bronchoscopy if she has evidence of clinical deterioration or does not improve radiographically. cc: Delmar Carr MD
[2019-06-29] MEDS: NICODERM PATCH TD SCH (18:17)
[2019-06-29] MEDS: LOVENOX SUBQ SCH (20:15)
[2019-06-30] MEDS: XOPENEX NEB INH SCH ×4 (04:37→22:34)
[2019-06-30] MEDS: HUMULIN R SUBQ SCH ×4 (06:04→21:03)
[2019-06-30] MEDS: PROTONIX IV SCH ×3 (06:09→22:44)
[2019-06-30] MEDS: SODIUM CHLORIDE 0.9% INJ SCH (06:09)
--- NOTE | 2019-06-30 07:09 | INFECTIOUS DISEASE PROGRESS NO ---
DATE: 06/30/2019 PRESENT ILLNESS: The patient has an HIV infection. It appears to be very advanced. The patient has a history of noncompliance so the HIV organisms may have developed resistance to her anti- retroviral therapy. The patient also has pulmonary infiltrates. I think infection is quite likely, but we are not able to get sputum specimens from the patient, and short of doing bronchoscopy and biopsy suggested by Dr. Carr, I do not think we will be able to get the etiology of the pulmonary infiltrates. The patient is cachectic. MEDICATIONS: The patient is on a combination of cefepime, Zyvox and trimethoprim sulfamethoxazole that this is the third day of treatment with those antimicrobial agents. The patient is on fluconazole and nystatin swish and swallow for oral candidiasis which may have spread to her esophagus or stomach. As mentioned above, the patient is on anti-retroviral therapy, specifically Triumeq, for her HIV infection. Unfortunately, she has been noncompliant and the HIV organisms may have developed resistance to Triumeq. PHYSICAL EXAMINATION: Vital Signs: Temperature is 98.5 degrees, pulse 90, respirations 17, blood pressure 102/73. The patient is 78 pounds. General: This is a cachectic chronically ill- appearing middle-aged female. She is lying in bed. She does not appear to be in any acute distress. Head, eyes, ears, nose, and throat: No drainage noted from the nose or ears. The patient was lethargic today and I was unable to get a good view of her oral cavity. Neck: No apparent pain with movement. Thorax patient has an increased AP diameter of the chest. Lungs: Clear to auscultation. Cardiovascular: Heart rate is regular. Abdomen: Soft and nontender. Neurologic: The patient is lethargic today. She appears to be able to move her extremities. There is no tremor. I was not able to formally test her vision or hearing, but yesterday both her hearing and vision were decreased. LABORATORY AND X-RAY: The patient's IgG level was 1560, IgA was 352. There is no lab work back yet today. Likewise there is no radiographic study back today. ASSESSMENT AND PLAN: The patient has advanced case of HIV infection. She has pulmonary infiltrates that could well be due to an infectious etiology, but possibly also a malignancy is in the running. The patient has oral candidiasis which may have spread into the esophagus or stomach. For now, I plan to continue the current antimicrobial agents. I should mention that the patient said she has been having diarrhea. However, there have been many stool studies ordered and the patient does not have any stool that she has passed recently, so it appears her diarrhea has cleared up. The patient also is malnourished. COMORBIDITIES: The patient has an advanced case of a AIDS which may be complicated by a pulmonary infection or a malignancy. Also, the patient is said to be noncompliant. The patient also smokes cigarettes and appears to have COPD secondary to that. Also should mention the patient uses illicit drugs, specifically cocaine, which is adding to her illness. cc: Chao Adams MD
[2019-06-30] MEDS: PULMICORT INH SCH ×2 (07:45→22:34)
[2019-06-30] MEDS: ICAR-C PO SCH ×2 (08:42→21:05)
[2019-06-30] MEDS: MYCOSTATIN SUSP PO SCH ×4 (08:42→21:05)
[2019-06-30] MEDS: CENTRUM SILVER PO SCH (08:42)
[2019-06-30] MEDS: SEPTRA IV SCH ×3 (08:43→22:48)
[2019-06-30] MEDS: DIFLUCAN PO SCH (08:43)
[2019-06-30] MEDS: D5W IV SCH ×3 (08:43→22:48)
[2019-06-30] MEDS: NICODERM PATCH TD SCH (08:43)
[2019-06-30] MEDS: FOLIC ACID PO SCH (08:43)
[2019-06-30] MEDS: DEBROX OTIC DROPS BOTH EARS SCH ×2 (08:45→21:05)
[2019-06-30 09:45] LABS: AGAP 15; ALB/GLOB RATIO 0.8; ALBUMIN 2.6 g/dL (3.5-5.0); ALKALINE PHOSPHATASE 95 U/L (32-104); BUN 10 mg/dL (8-22); CALCIUM 7.4 mg/dL (8.8-10.2); CHLORIDE 97 mmol/L (98-107); COSMO 272; CREATININE 0.8 mg/dL (0.5-0.9); ESTIMATED GFR > 60; GLUCOSE 186 mg/dL (70-104); GOT 20 U/L (10-30); GPT 7 U/L (10-36); MAGNESIUM 1.8 mg/dL (1.5-2.7); PHOSPHORUS 1.8 mg/dL (2.7-4.5); POTASSIUM 3.3 mmol/L (3.5-5.1); SODIUM 134 mmol/L (136-145); TCO2 22 mmol/L (25-35); TOTAL BILIRUBIN < 0.15 mg/dL (0.20-1.00); TOTAL PROTEIN 5.7 g/dL (6.3-8.3)
[2019-06-30 09:55] LABS: HEMATOCRIT 24.2 % (37.0-47.0); HEMOGLOBIN 7.8 g/dL (12.0-16.0); IMM GRAN# 0.16 X1000 (0.0-0.04); IMM GRAN% 3.2 % (0.0-0.5); LYMPH# 0.18 X1000 (1.2-3.4); LYMPH% 3.6 % (20.5-51.1); MCH 28.3 PG (27-31); MCHC 32.2 g/dL (33-37); MCV 87.7 FL (81-99); MONO# 0.15 X1000 (0.11-0.59); MPV 9.1 FL (7.4-10.4); NEUT# 4.58 X1000 (1.4-6.5); NEUT% 90.2 % (42.2-75.2); PLT 287 X1000 (130-400); RBC 2.76 XMIL (4.2-5.4); RDW 14.4 % (11.5-14.5); WBC 5.07 X1000 (4.8-10.8)
--- NOTE | 2019-06-30 10:19 | GASTROENTEROLOGY PROGRESS NOTE ---
DATE: 06/30/2019 SUBJECTIVE: Ms. Cordoba 53 year old female sitting in the bed, having her breakfast. She said that her appetite has improved, able to eat her food and tolerate it well. She has denied any nausea, vomiting, or any dysphagia. She does have watery diarrhea, awaiting stool studies. OBJECTIVE: Vital Signs: Temperature is 98.1 degrees, pulse is 92, respirations of 15, blood pressure 125/80, oxygen saturation is 99% on room air. Her weight is 78 pounds, and BMI is 13.9 kg/m2. General: She is alert, oriented x3, acutely thin, but in no acute distress. HEENT: sunken eyes, Pale conjunctiva. No icterus. PERRL. Neck: Supple. Abdomen: Nondistended, soft, nontender. Extremities: No cyanosis, clubbing. Loss of muscle mass in the upper and lower extremities. Neurologic: She is alert and oriented x3. IMAGING AND LABORATORY DATA: WBCs are 3.81, RBCs 2.64, hemoglobin is 7.3, hematocrit is 26.0, platelet count is 209,000. Sodium 135, potassium is 3.7, chloride 102, carbon dioxide 23, anion gap is 10, BUN is 11, creatinine 0.8, glucose is 108. Urinalysis on 06/27/2019 showed urine protein, trace of blood. Blood culture showed no growth. Her Clostridium difficile toxin was negative. Clostridium difficile antigen was negative. CT of the abdomen and pelvis on 06/27/2019 showed advanced pulmonary emphysema, patchy airspace consolidation throughout the mid and lower lung, limited abdomen and pelvis CT due to severe cachexia, significant amount of air in the urinary bladder. No definite acute abdominal or pelvis pathology. IMPRESSION AND PLAN: 1. Diarrhea. 2. Dysphagia. 3. Atypical pneumonia. 4. Severe cachexia. 5. Human immunodeficiency virus. 6. Vitamin D deficiency. 7. Tobacco abuse. 8. History of drug abuse. 9. Severe emphysema 10. Chronic hypoxic respiratory failure. PLAN: Follow up on stool studies. Dysphagia is improving. Currently, the patient is on gastrointestinal prophylaxis Protonix twice a day. She is on antibiotics of Maxipime, Zyvox, and Septra for her pneumonia. The patient is receiving vitamin D for her vitamin D deficiency. She is on TPN for nutrition, iron and multivitamin for anemia. She is receiving HAART medication for HIV. We have counselled patient for cessation of smoking, alcohol and drugs. Her H & H today was 7.3 and 26, We will monitor her CBC and BMP, and follow the plan of care per primary care provider. This plan was discussed with Dr. Butler. Please call us with any further questions or concerns. Dictated by MADHAVI Arriola for Rolando Butler MD cc: Rolando Butler MD I have seen and examined the patient myself and I agree with the above plan of care. Discussed the above with the patient and all questions were answered. Please call us with any further questions or concerns. JOSE
--- NOTE | 2019-06-30 10:20 | Diag Imaging Result Doc PS360 ---
EXAM: CHEST-2 VIEWS HISTORY: abnormal exam TECHNIQUE: Chest two views COMPARISON: 06/27/2019 FINDINGS: The lungs are hyperexpanded the heart is not enlarged. The vessels are not distended. There are no infiltrates. No pleural effusions. There is a right-sided PICC line on the current exam. The tip is near the junction of the superior vena cava and right atrium. IMPRESSION: No acute abnormality. Electronically signed by Eliel Plunkett 06/30/2019 10:18 AM
[2019-06-30 10:45] LABS: BANDS 2 % (0-1); HYPOCHROM 1+; LYMPHS 2 % (21-51); MONO 2 % (1-9); SEGS 94 % (42-75)
[2019-06-30] MEDS ORDERED: POTASSIUM PHOSPHATE 15 MMOL in NS 250 ML IV ONE (13:43)
--- NOTE | 2019-06-30 14:18 | PROGRESS NOTE ---
DATE: 06/30/2019 SUBJECTIVE: As per the patient, she is feeling better. She is able to tolerate p.o. She is still on TPN. She denied any nausea, vomiting, or dysphagia. We will continue with same management for now. Her appetite improved and she started having bowel movements. OBJECTIVE: Vital Signs: Temperature 98 degrees, pulse 103, respiratory rate 14, blood pressure 115/71 oxygen saturation 98 on nasal cannula. General: This patient is a 53-year-old, cachectic female lying in bed, in no acute distress. HEENT: Head normocephalic. No trauma. PERRLA. Neck: Supple. No JVD. No masses. Central trachea. Chest: Clear to auscultation. No wheezing. Some crepitus at the bases. Abdomen: Soft, nontender, nondistended. No hepatosplenomegaly. Extremities: No edema. No clubbing. No cyanosis. Decreased muscle mass. Neurological: The patient is alert. She is oriented. No focal deficits. LABORATORY: WBC 5, hemoglobin 7.8, hematocrit 24.2, platelets 287,000. Sodium 134, potassium 3.3, chloride 97, bicarbonate 22, BUN 10, creatinine 0.8, glucose 186, calcium 7.4, phosphorus 1.8, magnesium 1.8, albumin 2.6. ASSESSMENT AND PLAN: 1. Chronic hypoxemic respiratory failure. We will continue with the same management. She does have pneumonia which is probably atypical. Infectious Disease Department and Pulmonary Department on board. 2. Atypical pneumonia. Continue with broad spectrum antibiotics. Infectious Disease Department and Pulmonary Department are following this patient closely. We did an x-ray today that showed no acute abnormality. They did not see any infiltrates or pleural effusion. She does have a right-sided PICC line. 3. Severe cachexia. Currently this patient is on TPN but probably we will need to stop this at some point because now she is tolerating p.o. She denies nausea or vomiting at this moment and her appetite improved. 4. Human immunodeficiency virus. Continue with Triumeq. As per the patient, she was not able to take the treatment as prescribed because of the nausea and vomiting. 5. Severe emphysema. Aware. Continue with supplemental oxygen. 6. Vitamin D deficiency. Continue with vitamin D replacement. 7. Folic acid deficiency. Continue to replace. 8. Severe protein calorie malnutrition. She is on TPN and she is on a diet also which she started to tolerate. 9. Diarrhea. Stool studies have been sent. No WBC in the stool. No ova and parasite concentrate has been seen in the exam. C. difficile toxin and antigen are negative. Blood culture is negative as well. 10. Deep vein thrombosis prophylaxis with Lovenox. 11. Severe chronic obstructive pulmonary disease with ongoing nicotine addiction and tobacco use. This patient has been highly advised against tobacco use. I will continue with daily cessation education. 12. History of drug abuse. Aware. cc: Daniel Licea MD
[2019-06-30] MEDS: MAXIPIME 1 GM in NS 50 ML IV SCH (14:50)
[2019-06-30] MEDS: NON-FORMULARY MED PO SCH (15:24)
[2019-06-30] MEDS: ZYVOX 600 MG/D5W 600 MG/300 ML IVPB IV SCH (15:25)
[2019-06-30] MEDS: NS NEB INH SCH (15:32)
[2019-06-30] MEDS: MAGNESIUM SULFATE IV SCH ×7 (17:47)
[2019-06-30] MEDS: POTASSIUM CHLORIDE IV SCH ×7 (17:47)
[2019-06-30] MEDS: TPN ELECTROLYTES IV SCH ×7 (17:47)
[2019-06-30] MEDS: [UNRECOGNIZED DRUG - OTHER] IV SCH ×7 (17:47)
[2019-06-30] MEDS: LIPOSYN 20% 250 ML IV SCH (18:02)
--- NOTE | 2019-06-30 20:44 | PULMONOLOGY PROGRESS NOTE ---
DATE: 06/30/2019 SUBJECTIVE: The patient reports she feels a little bit better. Her swallowing is improving. The patient's CD4 count came back at 1 cell per mm3. The patient reports she has been taking her HIV medicines, but may have missed 2 to 3 doses due to nausea and vomiting. OBJECTIVE: The patient has been afebrile for the last 24 hours, blood pressure 115/71, heart rate 103, respiratory rate 14, oxygen saturation 2% on 2 L per nasal cannula.HEENT: Pupils are equal and reactive. Oropharynx appears clear. Neck is supple. Extremities are without edema. LABORATORIES: White blood count 5.07, hemoglobin 7.8, platelet count 287,000. Sodium 134, potassium 3.3, chloride 97, bicarbonate 22, BUN 10, creatinine 0.8, phosphorus 1.8, albumin 2.6. IMPRESSION: A 53-year-old with: 1. Severe chronic obstructive pulmonary disease, with ongoing tobacco use. 2. Bilateral pneumonia. 3. Extremely severe reduction in the CD4 count. Dr. Adams' note indicates noncompliance. 4. Cachexia with severe muscle wasting. DISCUSSION: A 53-year-old with problems outlined above. Given her age, BMI of 13, noncompliance, drug use, ongoing tobacco use, her prognosis is extremely poor. PLAN: 1. Continue antibiotics. 2. HIV management per Dr. Chao Adams. 3. Continue bronchial hygiene. 4. Encourage smoking cessation. 5. Dismal prognosis as outlined above. cc: Delmar Carr MD
[2019-06-30] MEDS: LOVENOX SUBQ SCH (21:05)
[2019-07-01] MEDS: MAXIPIME 1 GM in NS 50 ML IV SCH ×3 (00:35→23:00)
[2019-07-01] MEDS: ZYVOX 600 MG/D5W 600 MG/300 ML IVPB IV SCH ×3 (01:08→23:39)
[2019-07-01] MEDS: XOPENEX NEB INH SCH ×4 (03:17→22:40)
[2019-07-01] MEDS: HUMULIN R SUBQ SCH ×4 (06:02→21:49)
[2019-07-01 06:08] LABS: EOS# 0.01 X1000 (0.0-0.7); EOS% 0.2 % (0.0-10.0); HEMATOCRIT 24.5 % (37.0-47.0); HEMOGLOBIN 7.7 g/dL (12.0-16.0); IMM GRAN# 0.23 X1000 (0.0-0.04); IMM GRAN% 5.7 % (0.0-0.5); LYMPH# 0.22 X1000 (1.2-3.4); LYMPH% 5.5 % (20.5-51.1); MCH 27.5 PG (27-31); MCHC 31.4 g/dL (33-37); MCV 87.5 FL (81-99); MPV 8.8 FL (7.4-10.4); NEUT# 3.15 X1000 (1.4-6.5); NEUT% 78.6 % (42.2-75.2); PLT 289 X1000 (130-400); RDW 14.7 % (11.5-14.5); WBC 4.01 X1000 (4.8-10.8)
[2019-07-01 06:26] LABS: ALB/GLOB RATIO 0.8; ALBUMIN 2.1 g/dL (3.5-5.0); ALKALINE PHOSPHATASE 79 U/L (32-104); GOT 21 U/L (10-30); GPT 9 U/L (10-36); MAGNESIUM 1.6 mg/dL (1.5-2.7); PHOSPHORUS 2.7 mg/dL (2.7-4.5); TOTAL BILIRUBIN < 0.15 mg/dL (0.20-1.00); TOTAL PROTEIN 4.9 g/dL (6.3-8.3)
[2019-07-01 06:27] LABS: AGAP 11; BUN 8 mg/dL (8-22); CHLORIDE 100 mmol/L (98-107); COSMO 275; CREATININE 0.5 mg/dL (0.5-0.9); ESTIMATED GFR > 60; GLUCOSE 74 mg/dL (70-104); POTASSIUM 2.9 mmol/L (3.5-5.1); SODIUM 139 mmol/L (136-145); TCO2 28 mmol/L (25-35)
[2019-07-01 06:30] LABS: CALCIUM 6.6 mg/dL (8.8-10.2)
[2019-07-01] MEDS ORDERED: CALCIUM GLUCONATE 1 GM in NS 50 ML IV ONE (06:35)
[2019-07-01] MEDS ORDERED: MAGNESIUM SULFATE 2 GM/S.W.I. 2 GM/50 ML IVPB IV ONE (07:22)
[2019-07-01] MEDS: PULMICORT INH SCH ×2 (07:48→19:41)
[2019-07-01] MEDS: NICODERM PATCH TD SCH (08:39)
[2019-07-01] MEDS: ICAR-C PO SCH ×2 (08:40→21:48)
[2019-07-01] MEDS: NON-FORMULARY MED PO SCH (08:40)
[2019-07-01] MEDS: FOLIC ACID PO SCH (08:40)
[2019-07-01] MEDS: CENTRUM SILVER PO SCH (08:40)
[2019-07-01] MEDS: DIFLUCAN PO SCH (08:40)
[2019-07-01] MEDS: MYCOSTATIN SUSP PO SCH ×4 (08:40→21:48)
[2019-07-01] MEDS: DEBROX OTIC DROPS BOTH EARS SCH ×2 (08:41→21:49)
[2019-07-01] MEDS: KLOR-CON PO SCH ×2 (11:11→21:48)
[2019-07-01] MEDS: D5W IV SCH ×2 (11:12→21:48)
[2019-07-01] MEDS: SEPTRA IV SCH ×2 (11:12→21:48)
--- NOTE | 2019-07-01 11:28 | GASTROENTEROLOGY PROGRESS NOTE ---
DATE: 07/01/2019 SUBJECTIVE: Ms. Cordoba 53 year old female, sitting in bed, having her breakfast. She denies any vomiting but feels nauseated and complained that she has been having diarrhea. Last night, she had 3 to 4 watery diarrhea. This morning, she had 1 bowel movement, which was liquid in consistency. OBJECTIVE: Vital Signs: Temperature is 98 degrees, pulse is 101, respirations 17, blood pressure is 100/63, oxygen saturation is 92% on 2 L nasal cannula. Her weight is 82 pounds. BMI is 14.6 kg/m2. General: She is alert, oriented x3. Acutely thin, but in no acute distress. HEENT: Pale conjunctivae. No icterus. PERRL. Neck: Supple. Lungs: Clear to auscultation, no abnormal breath sounds heard. Cardiovascular: Regular, rate and rhythm, no murmurs, rubs or gallops heard on ascultation. Abdomen: Nondistended, soft, nontender. Extremities: No cyanosis, clubbing, loss of muscle mass in the upper and lower extremities. Neurological: Alert and oriented x3. IMAGING AND LABORATORY DATA: WBC is 4.01, RBC is 2.80, hemoglobin 7.7, hematocrit is 24.5, platelet count is 289,000. Sodium is 139, potassium is 2.9, chloride is 100, carbon dioxide is 28, anion gap is 11, BUN is 8, creatinine 0.5. Total bilirubin is less than 0.15, AST is 21, ALT is 9, albumin is 2.1. Stool studies on 06/30/2019 showed that there was no growth. Stool studies for ova and parasites, none seen. Clostridium difficile antigen and Clostridium difficile toxins are negative. Chest x-ray on 06/30/2019 showed no acute abnormality. Chest, abdomen, and pelvis CT showed advanced pulmonary emphysema, patchy airspace consolidation throughout the mid and lower lung zones, very limited abdominal and pelvis CT due to the severe cachexia and lack of IV contrast, significant amount of air in the urinary bladder lumen, no definite acute abdominal or pelvis pathology. IMPRESSION: Diarrhea Nausea and Vomiting Dysphagia Anemia Atypical pneumonia Severe cachexia HIV transitioned to AIDS Vitamin D deficiency Severe emphysema Chronic respiratory failure Tobacco abuse Drug abuse Thrush PLAN: The patient is currently on a regular diet, and she has been able to tolerate her diet fairly well. She is getting TPN for her nutrition. We will continue her with her GI prophylaxis, Protonix twice a day. She is on antibiotic, Maxipime, Zyvox, and Septra for her pneumonia. The patient is getting vitamin D for her vitamin D deficiency. She is on HAART treatment for her HIV. We have counseled the patient for cessation of smoking, alcohol, and drugs. Her hemoglobin and hematocrit today were 7.7 and 24.5. We will continue to monitor her CBC, BMP, and follow the plan of care per primary care providers. This plan was discussed with Dr. Hammond. Please call us with any further questions or concerns. Dictated by MADHAVI Arriola for Manuel Hammond MD Physician Attestation I have seen and examined the patient. I have discussed and reviewed the the note by Dina HENDRICKSON and agree with findings and plan as documented. MTDShannon
--- NOTE | 2019-07-01 11:34 | PROGRESS NOTE ---
DATE: 07/01/2019 SUBJECTIVE: This patient has been complaining of cough and generalized weakness. We will continue with the same management for now. No acute events overnight. She is tolerating p.o. Infectious Disease Department and Pulmonary Department on board. OBJECTIVE: Vital Signs: Temperature 98 degrees, pulse 101, respiratory rate 17, blood pressure 100/63, oxygen saturation 92 on 2 L of nasal cannula. HEENT: Head normocephalic. No trauma. PERRLA. Neck: Supple. No JVD. No masses. Central trachea. Chest: Clear to auscultation. No wheezing. Some crepitus at the bases. Abdomen: Soft, nontender, nondistended. No hepatosplenomegaly. Extremities: No edema, no clubbing, no cyanosis. Decreased muscle mass. Neurological: The patient is alert. She is oriented. No focal deficits. LABORATORY DATA: WBC 4, hemoglobin 7.7, hematocrit 24.5, platelets 289,000. Sodium 139, potassium 2.9, chloride 100, bicarbonate 28, BUN 8, creatinine 0.5, glucose 74, calcium 6.6. Phosphorus 2.7, magnesium 1.6. ASSESSMENT AND PLAN: 1. Chronic hypoxemic respiratory failure. Continue with the same management. She does have pneumonia, which is probably atypical. Infectious Disease Department and Pulmonary Department on board. 2. Atypical pneumonia. Continue broad-spectrum antibiotics. Infectious Disease Department and Pulmonary Department are following this patient closely. 3. Severe cachexia. Continue with total parenteral nutrition, and also she is tolerating by mouth. She denies nausea, vomiting at this moment, and her appetite has been better. 4. Human immunodeficiency virus. Continue with her home medication, Triumeq. It looks like she has been taking this treatment on and off. As per the Infectious Disease doctor, she has been noncompliant with the medication. 5. Severe emphysema. Aware. Continue with supplemental oxygen. 6. Vitamin D and folic acid deficiency. Continue to replace. 7. Severe protein calorie malnutrition. She is on total parenteral nutrition, and also she is on a diet, which she has been tolerating. 8. Diarrhea. Followed by Dr. Adams. Seems to be a little bit better, but still having liquid bowel movements. 9. Deep vein thrombosis prophylaxis with Lovenox. 10. Severe chronic obstructive pulmonary disease with ongoing nicotine addiction and tobacco use. She has been highly advised against tobacco use. Will continue with daily cessation education. 11. History of drug use and abuse. Aware. Overall, her prognosis seems to be poor due to her current condition, medical noncompliance, and comorbidities. We will continue with the same management for now. I will replace the electrolytes, potassium, and magnesium. cc: Daniel Licea MD
[2019-07-01] MEDS: NS NEB INH SCH (16:00)
[2019-07-01] MEDS: POTASSIUM CHLORIDE IV SCH ×7 (16:32)
[2019-07-01] MEDS: LIPOSYN 20% 250 ML IV SCH (16:32)
[2019-07-01] MEDS: PROTONIX PO SCH (16:32)
[2019-07-01] MEDS: [UNRECOGNIZED DRUG - OTHER] IV SCH ×7 (16:32)
[2019-07-01] MEDS: MAGNESIUM SULFATE IV SCH ×7 (16:32)
[2019-07-01] MEDS: TPN ELECTROLYTES IV SCH ×7 (16:32)
--- NOTE | 2019-07-01 20:55 | PULMONOLOGY PROGRESS NOTE ---
DATE: 07/01/2019 SUBJECTIVE: The patient is awake, alert, and conversant. She reports she has a good appetite. She is without specific complaints. OBJECTIVE: The patient has been afebrile for the last 24 hours. Blood pressure 104/63, heart rate 110, respiratory rate 18, oxygen saturation 99% on 2 L per nasal cannula.HEENT: Pupils are equal and reactive. Oropharynx appears clear. Neck: Supple. Chest: Prolonged expiratory phase with occasional rhonchi. Cardiac: S1-S2. Abdomen: Soft. Extremities: Without edema. IMPRESSION: A 53-year-old with: 1. Human immunodeficiency virus. 2. Chronic obstructive pulmonary disease with ongoing tobacco use. 3. Severe protein-calorie malnutrition. 4. Extreme reduction in CD4 count. 5. Chronic hypoxemic respiratory failure. PLAN: 1. Continue current antibiotics. 2. Continue nutrition support. 3. Encourage smoking cessation. 4. Followup chest x-ray tomorrow. 5. Overall prognosis appears poor given severe cachexia, severe malnutrition, end-stage COPD, chronic hypoxemic respiratory failure, and an extremely low CD4 count. cc: Delmar Carr MD
[2019-07-01] MEDS: LOVENOX SUBQ SCH (21:49)
[2019-07-02] MEDS: XOPENEX NEB INH SCH ×4 (03:18→21:45)
[2019-07-02] MEDS: PROTONIX PO SCH ×2 (04:41→16:51)
[2019-07-02 05:31] LABS: EOS# 0.01 X1000 (0.0-0.7); EOS% 0.3 % (0.0-10.0); HEMATOCRIT 25.8 % (37.0-47.0); HEMOGLOBIN 8.2 g/dL (12.0-16.0); IMM GRAN# 0.18 X1000 (0.0-0.04); IMM GRAN% 5.5 % (0.0-0.5); LYMPH# 0.24 X1000 (1.2-3.4); LYMPH% 7.3 % (20.5-51.1); MCH 27.9 PG (27-31); MCHC 31.8 g/dL (33-37); MCV 87.8 FL (81-99); MONO# 0.29 X1000 (0.11-0.59); MONO% 8.9 % (1.7-9.3); NEUT# 2.55 X1000 (1.4-6.5); PLT 276 X1000 (130-400); RBC 2.94 XMIL (4.2-5.4); WBC 3.27 X1000 (4.8-10.8)
[2019-07-02 05:44] LABS: AGAP 10; ALB/GLOB RATIO 0.8; ALBUMIN 2.4 g/dL (3.5-5.0); ALKALINE PHOSPHATASE 88 U/L (32-104); BUN 7 mg/dL (8-22); CALCIUM 7.3 mg/dL (8.8-10.2); CHLORIDE 93 mmol/L (98-107); COSMO 259; CREATININE 0.6 mg/dL (0.5-0.9); ESTIMATED GFR > 60; GLUCOSE 73 mg/dL (70-104); GOT 25 U/L (10-30); GPT 12 U/L (10-36); MAGNESIUM 1.8 mg/dL (1.5-2.7); PHOSPHORUS 2.8 mg/dL (2.7-4.5); POTASSIUM 3.6 mmol/L (3.5-5.1); SODIUM 131 mmol/L (136-145); TCO2 28 mmol/L (25-35); TOTAL BILIRUBIN < 0.15 mg/dL (0.20-1.00); TOTAL PROTEIN 5.5 g/dL (6.3-8.3)
[2019-07-02] MEDS: HUMULIN R SUBQ SCH ×4 (06:05→22:26)
--- NOTE | 2019-07-02 07:03 | Diag Imaging Result Doc PS360 ---
EXAM: CHEST-2 VIEWS 07/02/2019 HISTORY: abnormal exam TECHNIQUE: PA and lateral chest COMMENT: There is COPD. There is patchy ill-defined opacity present bilaterally particularly in the left lower lobe. This appears somewhat worse than on the previous examination of 06/30/2019. IMPRESSION: COPD exacerbated by bronchopneumonia. Electronically signed by Bunny Avina 07/02/2019 7:00 AM
--- NOTE | 2019-07-02 07:04 | Diag Imaging Result Doc PS360 ---
EXAM: HUMERUS-RIGHT 07/02/2019 HISTORY: Possible dislodgement of catheter tip TECHNIQUE: Right humerus two views COMMENT: There is no evidence of fracture or dislocation periosteal reaction or erosion. There are no radiopaque foreign bodies demonstrated. IMPRESSION: No definite abnormality. Electronically signed by Bunny Avina 07/02/2019 7:01 AM
[2019-07-02 07:19] LABS: ANISOCYTOSIS 1+; BANDS 2 % (0-1); HYPOCHROM 2+; LYMPHS 3 % (21-51); MONO 5 % (1-9); SEGS 89 % (42-75)
--- NOTE | 2019-07-02 07:38 | INFECTIOUS DISEASE PROGRESS NO ---
DATE: 07/02/2019 PRESENT ILLNESS: The patient has an advanced HIV infection. She told me that she stopped taking her medicine because it made her nauseated. She has bilateral infiltrates on chest x-ray. She could well have Pneumocystis, and she could also have, in addition or instead of Pneumocystis, a bacterial or fungal pneumonia. The patient is cachectic, and she has COPD and continues to smoke. MEDICATIONS: The patient is taking cefepime, Zyvox, fluconazole, nystatin swish and swallow, IV Septra, and Triumeq. PHYSICAL EXAMINATION: Vital Signs: Temperature is 98.2 degrees, pulse 82, respirations 16, blood pressure 90/60. The patient is 5 feet 3 inches tall, weighs 74 pounds. General: This is an emaciated, chronically ill-appearing, middle-aged female. She does not appear to be in any acute distress. HEENT: She has decreased hearing. She still has a white coating on her tongue. There is no drainage from her nose or ears. Neck: No pain with movement. Lungs: Clear bilaterally. Cardiovascular: Heart rate is regular. Abdomen: Soft and not tender. Thorax: The patient has an increased AP diameter of the chest. Neurologic: The patient is lethargic, but she is fully arousable. She can move her extremities. There is no tremor. IMAGING AND LABORATORY DATA: Chest x-ray shows bilateral infiltrates, which might be worse. The patient's immunoglobulin levels are normal. CBC shows a white count of 3270, hemoglobin 8.2, and platelet count 276,000. Creatinine is 0.6. GFR is greater than 60. Liver function studies are normal. Absolute CD4 count was 1. ASSESSMENT AND PLAN: The patient has advanced human immunodeficiency virus infection. She has been restarted on Triumeq. She is also getting the antimicrobial agents I mention, namely cefepime, fluconazole, Zyvox, Septra, Triumeq, and nystatin swish and swallow. COMORBIDITIES: The patient has advanced case of AIDS, which is complicated by pulmonary infection. She also has severe COPD and malnutrition. cc: Chao Adams MD [facility]
--- NOTE | 2019-07-02 09:17 | PROGRESS NOTE ---
DATE: 07/02/2019 SUBJECTIVE: This patient seems to be feeling better today. Her PICC line came out, but she has been tolerating food really well so I will stop the TPN for now and I will continue with the same management. OBJECTIVE: Vital Signs: Temperature 98.2 degrees, pulse 116, respiratory rate 17, blood pressure 91/61, oxygen saturation 100% on nasal cannula. Head: Head normocephalic, no trauma. PERRLA. Neck: Supple. No JVD. No masses. Central trachea. Mouth: She has a white coating on her tongue. Ears: Decreased hearing. Chest: Clear to auscultation. Some crepitus at the bases. Cardiovascular: Regular rate and rhythm. Abdomen: Soft, nontender, nondistended. No hepatosplenomegaly. Extremities: No edema, no clubbing, no cyanosis. Decreased muscle mass. Neurological: The patient is alert and oriented x3. No focal deficits. LABORATORY DATA: WBC 3.2, hemoglobin 8.2, hematocrit 25.8, platelets 276,000. Sodium 131, potassium 3.6, chloride 93, bicarbonate 28, BUN 7, creatinine 0.6, glucose 73, calcium 7.3, magnesium 1.8. ASSESSMENT AND PLAN: 1. Chronic hypoxemic respiratory failure. Continue with same management. Pulmonary Department on board. 2. Atypical pneumonia. Continue with broad spectrum antibiotics. Infectious Disease Department on board. 3. Severe cachexia. She used to be on total parenteral nutrition. She has been gaining weight, but her PICC line came out, she is tolerating p.o. really good, so we will continue with the same management. 4. Human immunodeficiency virus. Continue with the same treatment, she is on Triumeq. Her CD4 count is low. 5. Severe emphysema, aware. Continue with supplemental oxygen. 6. Vitamin D and folic acid deficiency. Continue to replace. 7. Severe protein calorie malnutrition. Like I mentioned before, she has been on TPN and also a diet that she is tolerating really good. Her PICC line came out, so she is not getting TPN at this moment. 8. Diarrhea, followed by Dr. Adams, seems to be getting a little bit better. 9. Deep vein thrombosis prophylaxis with Lovenox. 10. Severe chronic obstructive pulmonary disease with ongoing nicotine addiction and tobacco use. She has been highly advised against tobacco use. I will continue with daily cessation education. 11. History of drug use and abuse. Aware. Overall, her prognosis seems to be poor due to her current condition, medical noncompliance and comorbidities. We will continue with the same management for now. She seems to be getting a little bit better. cc: Daniel Licea MD
[2019-07-02] MEDS: DEBROX OTIC DROPS BOTH EARS SCH ×2 (10:18→22:29)
[2019-07-02] MEDS: CENTRUM SILVER PO SCH (10:19)
[2019-07-02] MEDS: NICODERM PATCH TD SCH (10:19)
[2019-07-02] MEDS: ICAR-C PO SCH ×2 (10:19→22:29)
[2019-07-02] MEDS: MYCOSTATIN SUSP PO SCH ×4 (10:19→22:29)
[2019-07-02] MEDS: FOLIC ACID PO SCH (10:19)
[2019-07-02] MEDS: DIFLUCAN PO SCH (10:20)
[2019-07-02] MEDS: NON-FORMULARY MED PO SCH (10:20)
[2019-07-02] MEDS: PULMICORT INH SCH ×2 (11:00→21:45)
--- NOTE | 2019-07-02 11:47 | GASTROENTEROLOGY PROGRESS NOTE ---
DATE: 07/02/2019 SUBJECTIVE: Ms. Cordoba is a 53-year-old female, who was sitting on the bed. Denies any nausea, vomiting, abdominal pain. She said she had 2 watery bowel movements yesterday and 1 this morning. Patient is able to tolerate her diet well. OBJECTIVE: Vital signs: Temperature 98.2 degrees, pulse is 116, respirations 17, blood pressure 91/61, oxygen saturation is 100%. She is on 3 L nasal cannula. Her weight is 74 pounds and her BMI is 13.2 kg/m2. General: In general, she is alert, oriented x3. Acutely thin, but in no acute distress. HEENT: Pale conjunctivae. No icterus. ELANA. Neck: Neck is supple. Lungs: Clear to auscultation in anterior and posterior carpio. Cardiovascular: Regular rate and rhythm. No murmurs, rubs, or gallops heard on auscultation Abdomen: Nontender, nondistended, soft. Active bowel sounds heard in all 4 quadrants. Extremities: No cyanosis, clubbing. Loss of muscle mass in the upper and lower extremities. Neurologic: Alert, oriented x3. LABORATORY DATA: WBCs 3.27, RBCs 2.94, hemoglobin is 8.2, hematocrit is 25.8, platelet count is 276. Blood gases: Her pH is 7.50, pCO2 is 35, PO2 is 55, HC03 is 27.9. Sodium 131, potassium 3.6, chloride 93, carbon dioxide 28, anion gap 10. BUN 7, creatinine is 0.6, glucose is 73, calcium 7.3, phosphorus 2.8, magnesium 1.8, total bilirubin is less than 0.15. AST 25, ALT is 12, alkaline phosphatase is 88, and albumin is 2.4. X-ray of the right humerus showed no definite abnormality. Chest x-ray showed COPD exacerbated by bronchopneumonia. IMPRESSION AND PLAN: Diarrhea Nausea and Vomiting Dysphagia Anemia Atypical pneumonia Severe cachexia AIDS Severe emphysema Chronic respiratory failure Tobacco abuse Drug abuse Thrush PLAN: Patient has been complaining of recurrent watery diarrhea. We plan to do an EGD with small bowel biopsy and Flex Sigmoidoscopy with random biopsy of duodenum and colon tomorrow in the morning. She will be on clear liquids and NPO after midnight for the procedure. We will continue with her GI prophylaxis, Protonix twice a day, antibiotic Maxipime and Septra for her pneumonia. The patient is getting vitamin D for vitamin D deficiency. She is on a HAART therapy for HIV. Her hemoglobin today was 8.2 and hematocrit 25.8, Her CBC has been trending upwards. We will continue to monitor patient's CBC, BMP, and follow the plan of care per primary care provider. We have discussed the risks, benefits and alternatives of the procedure, patient acknowledges understanding of the instructions. Further plan of care will be based on the EGD and sigmoidoscopy findings. This plan was discussed with Dr. Hammond. Please call us for any further questions and concerns. Dictated by MADHAVI Arriola for Manuel Hammond MD Physician Attestation I have seen and examined the patient. I have discussed and reviewed the the note by Dina HENDRICKSON and agree with findings and plan as documented. Ms. Cordoba is a 53 year old woman with AIDS who presents with bilateral pneumonia, diarrhea, and cachexia. GI consulted for diarrhea. Infectious workup negative to date. Will plan for diagnostic EGD and sigmoidoscopy to obtain SB and colonic biopsies to rule out OIs including KARIS and CMV. ID following, appreciate recs. Patient is on TPN for malnutrition. MTDD
[2019-07-02] MEDS: SEPTRA IV SCH ×2 (11:54→22:29)
[2019-07-02] MEDS: D5W IV SCH ×2 (11:54→22:29)
[2019-07-02] MEDS: MAXIPIME 1 GM in NS 50 ML IV SCH (14:25)
[2019-07-02] MEDS: ZYVOX 600 MG/D5W 600 MG/300 ML IVPB IV SCH (14:25)
[2019-07-02] MEDS ORDERED: CITRATE OF MAGNESIA PO ONE (15:00)
[2019-07-03] MEDS: MAXIPIME 1 GM in NS 50 ML IV SCH (00:54)
[2019-07-03] MEDS: ZYVOX 600 MG/D5W 600 MG/300 ML IVPB IV SCH (01:20)
[2019-07-03] MEDS: XOPENEX NEB INH SCH ×4 (03:22→21:05)
[2019-07-03 05:23] LABS: HEMATOCRIT 25.2 % (37.0-47.0); HEMOGLOBIN 7.9 g/dL (12.0-16.0); IMM GRAN# 0.03 X1000 (0.0-0.04); IMM GRAN% 1.3 % (0.0-0.5); LYMPH# 0.17 X1000 (1.2-3.4); LYMPH% 7.5 % (20.5-51.1); MCHC 31.3 g/dL (33-37); MCV 89.4 FL (81-99); MONO% 8.8 % (1.7-9.3); MPV 8.5 FL (7.4-10.4); NEUT# 1.86 X1000 (1.4-6.5); NEUT% 82.4 % (42.2-75.2); PLT 220 X1000 (130-400); RBC 2.82 XMIL (4.2-5.4); RDW 15.3 % (11.5-14.5); WBC 2.26 X1000 (4.8-10.8)
[2019-07-03] MEDS: PROTONIX PO SCH ×2 (05:24→16:04)
[2019-07-03 05:43] LABS: AGAP 10; BUN 9 mg/dL (8-22); CALCIUM 7.2 mg/dL (8.8-10.2); CHLORIDE 96 mmol/L (98-107); COSMO 264; CREATININE 0.6 mg/dL (0.5-0.9); ESTIMATED GFR > 60; GLUCOSE 78 mg/dL (70-104); MAGNESIUM 1.6 mg/dL (1.5-2.7); PHOSPHORUS 2.9 mg/dL (2.7-4.5); POTASSIUM 4.1 mmol/L (3.5-5.1); SODIUM 133 mmol/L (136-145); TCO2 27 mmol/L (25-35)
[2019-07-03 05:53] LABS: ALB/GLOB RATIO 0.8; ALBUMIN 2.4 g/dL (3.5-5.0); DIRECT BILIRUBIN 0.1 mg/dL (0.00-0.20); TOTAL BILIRUBIN 0.19 mg/dL (0.20-1.00); TOTAL PROTEIN 5.4 g/dL (6.3-8.3)
[2019-07-03] MEDS: HUMULIN R SUBQ SCH ×2 (07:20→12:06)
[2019-07-03] MEDS ORDERED: XYLOCAINE-MPF 2% ONE (08:05)
[2019-07-03] MEDS ORDERED: DIPRIVAN 1% ONE (08:05)
[2019-07-03] MEDS ORDERED: ROBINUL ONE (08:48)
--- NOTE | 2019-07-03 09:22 | PROGRESS NOTE ---
DATE: 07/03/2019 SUBJECTIVE: No acute events overnight. She will have an upper endoscopy and sigmoidoscopy today. OBJECTIVE: Vital Signs: Temperature 98.5 degrees, pulse 100, respiratory rate 18, blood pressure 107/60, O2 saturation 100% on room air. HEENT: Head normocephalic, no trauma. PERRLA. Mouth: She has a white coating on her tongue. Ears: Decreased hearing. Neck: Supple. No JVD. No masses. Central trachea. Chest: Clear to auscultation. Some crepitus at the bases. Cardiovascular: Regular rate and rhythm. Abdomen: Soft, nontender, nondistended. No hepatosplenomegaly. Extremities: No edema, no clubbing, no cyanosis. Decreased muscle mass. Neurological: The patient is alert. She is oriented x3. No focal deficits but weakness. LABORATORY: WBC 2.2, hemoglobin 7.9, hematocrit 25.2, and platelets 220,000. Sodium 133, potassium 4.1, chloride 96, bicarbonate 27, BUN 9, creatinine 0.6, glucose 78, calcium 7.2. ASSESSMENT AND PLAN: 1. Chronic hypoxemic respiratory failure. Continue with same management. Pulmonary department on board. 2. Atypical pneumonia. Continue with broad-spectrum antibiotics. Infectious Disease department on board. 3. Severe cachexia. Initially, she received TPN and she was not able to swallow because of pain but now she is eating well, continue with her current diet. 4. Human immunodeficiency virus (HIV), continue with same treatment. Apparently, she has not been taking her medication as prescribed. 5. Severe emphysema. Aware. Continue with supplemental oxygen. 6. Vitamin D and folic acid deficiency. Continue to replace. 7. Severe protein calorie malnutrition. Continue with her diet. 8. Diarrhea, followed by Dr. Adams and Gastroenterology department. She is getting a sigmoidoscopy today and also an upper endoscopy. 9. Deep vein thrombosis prophylaxis. We will continue with Lovenox. 10. Severe chronic obstructive pulmonary disease with ongoing nicotine addiction and tobacco use. This patient has been highly advised against tobacco use and will continue with daily cessation education. 11. History of drug use and abuse. Aware. cc: Daniel Licea MD
--- NOTE | 2019-07-03 09:25 | ENDOSCOPY OPERATIVE NOTE ---
[facility] ENDOSCOPY OPERATIVE NOTE , PATIENT: Etta Cordoba ADMISSION DATE: MR#: [id number] : 1965 EGD PROCEDURE REPORT PROCEDURE DATE: 07/03/2019 SURGEON: Rolando Butler MD STATUS: inpatient [facility] TECHNICIAN: Etta Rueda and Cira Colby PREOPERATIVE DIAGNOSIS: The patient is a 53 yr old female here for an EGD due to Anemia, chronic Natalie rrhea, AIDS, Cachexia. PROCEDURE PERFORMED: EGD w/ biopsy MEDICATIONS: Per Anesthesia TOPICAL ANESTHETIC: none CONSENT: The patient understands the risks and benefits of the procedure and understands that these r isks include, but are not limited to: sedation, allergic reaction, infection, perforation and/or bleeding. Alternative means of evaluation and treatment include, among others: physical exam, x-rays, and/or surgical intervention. The patient elects to proceed with this endoscopic procedure. HISORY AND PHYSICAL: 07/03/2019 DESCRIPTION OF PROCEDURE: During intra-op preparation period all mechanical and medical equipment was checked for proper function. Hand hygiene and appropriate measures for infection prevention was taken. After the risks, benefits and alternatives of the procedure were thoroughly explained, Informed consent was verified, confirmed and timeout was successfully executed by the treatment team. The patient was anesthetized with topical anesthesia and the AI70-s38 ([id number]) endoscope was introduced through the mouth and advanced to the second portion of the duoden um. Retroflexion was performed in the stomach and revealed no abnormalities. The gastroscope was then slowly withdraw n and removed. ESOPHAGUS: Candidial esophagitis severe from oral cavity to the entire esophagus. Mild Reflux esopha gitis noted at the distal esophagus. Z line at 40 cms. Hiatal hernia, sliding type measuring about 4 cms was noted. STOMACH: The mucosa of the stomach appeared normal. DUODENUM: The duodenal mucosa showed no abnormalities in the duodenal bulb, 1st part duodenum, and 2n d part duodenum. SPECIMENS REMOVED: Yes ADVERSE EVENTS: There were no complications. POSTOPERATIVE DIAGNOSIS: 1. Candidial esophagitis severe from oral cavity to the entire esophagu s. Mild Reflux esophagitis noted at the distal esophagus. Z line at 40 cms. Hiatal hernia, sliding type measuring about 4 cms was noted 2. The mucosa of the stomach appeared normal 3. The duodenal mucosa showed no abnormalities in the duodenal bulb, 1st part duodenum, and 2nd part duodenum cold forcep biopsies were taken in the second portion RECOMMENDATIONS: 1. Await biopsy results 2. Continue antifungal regimen; Continue PPI Once daily. 3. Begin an anti-reflux lifestyle: avoid acidic foods and drinks (like coffee and soda), do not lie down three hours after eating, elevate the head of your bed 6 to 9 inches, stop smokiing and reduce weight if needed. REPEAT EXAM: Rolando Butler MD eSigned: Rolando Butler MD 07/03/2019 9:24 AM cc: PATIENT NAME: Etta Cordoba MR#: [id number]
--- NOTE | 2019-07-03 09:29 | ENDOSCOPY OPERATIVE NOTE ---
[facility] ENDOSCOPY OPERATIVE NOTE , PATIENT: Etta Cordoba ADM DATE: MR #: [id number] : 1965 FLEXIBLE SIGMOIDOSCOPY PROCEDURE REPORT PROCEDURE DATE: 07/03/2019 SURGEON: Rolando Butler MD STATUS: inpatient [employer] OPERATOR: Etta Rueda and Cira Colby PREOPERATIVE DIAGNOSIS: The patient is a 53 yr old female here for a colonoscopy due to Chronic diar mary, AIDS, Negative Stool studies. PROCEDURE PERFORMED: Sigmoidoscopy with biopsy MEDICATIONS: Per Anesthesia PREP TYPE: Magnesium Citrate PREP QUALITY: The overall prep quality was inadequate. ESTIMATED BLOOD LOSS: None CONSENT: The patient understands the risks and benefits of the procedure and understands that these r isks include, but are not limited to: sedation, allergic reaction, infection, perforation and/or bleeding. Alternative means of evaluation and treatment include, among others: physical exam, x-rays, and/or surgical intervention. The patient elects to proceed with this endoscopic procedure. HISTORY AND PHYSICAL: 07/03/2019 DESCRIPTION OF PROCEDURE: During the intra-op preparation period all mechanical and medical equipment was checked for proper function. Hand hygiene and appropriate measures for infection prevention was taken. After the risks, benefits and alternatives of the procedure were thoroughly explained, Informed consent was verified, confirmed and timeout was successfully executed by the treatment team. A digital exam revealed no abnormalities of the rectum. The [id number]-[id number] ([id number]) endoscope was introduced through the anus and advanced to the sigmoid colon. The instrument was then slowly withdrawn as the colon was fully examined. COLON FINDINGS: Stool was noted in the colon. No evidence of any colitis.Random Biopsies were obtain ed. Mild internal hemorrhoids was noted. Retroflexion was not performed. The scope was then completely withdrawn from t he patient and the procedure terminated. SPECIMENS REMOVED: Yes ADVERSE EVENTS: There were no complications. POSTOPERATIVE DIAGNOSIS: Stool was noted in the colon. No evidence of any colitis.Random Biopsie s were obtained. Mild internal hemorrhoids was noted RECOMMENDATIONS: 1. Await biopsy results 2. Continue previous medications and diet RECALL: Rolando Butler MD eSigned: Rolando Butler MD 07/03/2019 9:29 AM cc:
[2019-07-03] MEDS: NS NEB INH SCH ×2 (10:00→15:47)
[2019-07-03] MEDS: PULMICORT INH SCH ×2 (10:00→21:05)
[2019-07-03] MEDS: MYCOSTATIN SUSP PO SCH ×4 (10:30→20:24)
[2019-07-03] MEDS: CENTRUM SILVER PO SCH (10:30)
[2019-07-03] MEDS: DIFLUCAN PO SCH (10:30)
[2019-07-03] MEDS: LEVAQUIN PO SCH (10:30)
[2019-07-03] MEDS: DEBROX OTIC DROPS BOTH EARS SCH ×2 (10:30→20:24)
[2019-07-03] MEDS: ICAR-C PO SCH ×2 (10:30→20:24)
[2019-07-03] MEDS: FOLIC ACID PO SCH (10:30)
[2019-07-03] MEDS: SEPTRA DS PO SCH ×3 (10:30→22:06)
[2019-07-03] MEDS: NICODERM PATCH TD SCH (10:31)
[2019-07-03] MEDS: NON-FORMULARY MED PO SCH (10:31)
[2019-07-03] MEDS: SEPTRA IV SCH (12:12)
[2019-07-03] MEDS: D5W IV SCH (12:12)
--- NOTE | 2019-07-03 12:15 | INFECTIOUS DISEASE PROGRESS NO ---
DATE: 07/03/2019 Dr. Benson called me to notify me that the patient has pulled out all of her IVs and we are not able to get IV access. Therefore, I am changing the patient's antimicrobial agents to p.o. I have changed Septra from IV to p.o. I have discontinued IV Septra, and discontinued cefepime and discontinued Zyvox. I have also added on Levaquin p.o. cc: Chao Adams MD
--- NOTE | 2019-07-03 21:06 | PULMONOLOGY PROGRESS NOTE ---
DATE: 07/03/2019 SUBJECTIVE: The patient is awake and alert. She is eating, by her report. She has a slightly wet cough. OBJECTIVE: The patient has been afebrile for the last 24 hours, blood pressure 102/63, heart rate 106, respiratory rate 18, oxygen saturation 100% on 2 L per nasal cannula.HEENT: Pupils are equal and reactive. Oropharynx appears clear. Neck is supple. Chest reveals prolonged expiratory phase with scattered rhonchi. Cardiac: S1, S2. Abdomen is soft. Extremities are without edema. MICROBIOLOGY: Reveals gram-negative yodit in sputum. IMPRESSION: A 53-year-old with: 1. Gram-negative pneumonia. 2. Chronic obstructive pulmonary disease. 3. Human immunodeficiency virus/acquired immunodeficiency syndrome. 4. Severe protein-calorie malnutrition. 5. Chronic hypoxemic respiratory failure. PLAN: 1. Continue current antibiotics as outlined by Infectious Disease. 2. Continue nutrition support. 3. Continue bronchial hygiene. 4. Encourage smoking cessation. 5. Encourage compliance with HIV medications. cc: Delmar Carr MD
[2019-07-04] MEDS: XOPENEX NEB INH SCH ×3 (03:35→15:22)
[2019-07-04] MEDS: PROTONIX PO SCH ×2 (05:37→16:47)
[2019-07-04] MEDS: SEPTRA DS PO SCH ×3 (05:37→16:47)
[2019-07-04 06:04] LABS: AGAP 10; BUN 11 mg/dL (8-22); CALCIUM 7.9 mg/dL (8.8-10.2); CHLORIDE 99 mmol/L (98-107); CHOLESTEROL 116 mg/dL (0-200); COSMO 265; CREATININE 0.6 mg/dL (0.5-0.9); ESTIMATED GFR > 60; GLUCOSE 90 mg/dL (70-104); MAGNESIUM 1.6 mg/dL (1.5-2.7); PHOSPHORUS 2.5 mg/dL (2.7-4.5); POTASSIUM 4.3 mmol/L (3.5-5.1); SODIUM 133 mmol/L (136-145); TCO2 24 mmol/L (25-35); TRIGLYCERIDES 79 mg/dL (35-135)
[2019-07-04 06:07] LABS: ALB/GLOB RATIO 0.8; ALBUMIN 2.6 g/dL (3.5-5.0); ALKALINE PHOSPHATASE 91 U/L (32-104); GOT 28 U/L (10-30); GPT 15 U/L (10-36); TOTAL BILIRUBIN < 0.15 mg/dL (0.20-1.00); TOTAL PROTEIN 5.7 g/dL (6.3-8.3)
[2019-07-04] MEDS ORDERED: MYCAMINE 100 MG in NS 100 ML IV SCH (06:45)
--- NOTE | 2019-07-04 07:12 | INFECTIOUS DISEASE PROGRESS NO ---
DATE: 07/04/2019 PRESENT ILLNESS: The patient has an advanced HIV infection. She also has a gram-negative yodit pneumonia. She has also esophageal candidiasis. The patient also may have Pneumocystis pneumonia as well as the gram-negative yodit pneumonia. The patient is cachectic. She is a cigarette smoker and she has COPD. Patient also yesterday was discovered to have esophageal candidiasis. MEDICATIONS: The nurses informed me yesterday that the patient pulls out her IVs and requested that the antibiotics be given p.o. with which I agree. The patient is receiving now p.o. fluconazole, p.o. Septra, p.o. Levaquin and nystatin swish and swallow. The patient also is receiving her anti-retroviral therapy, namely Triumeq. PHYSICAL EXAMINATION: Vital Signs: Temperature is 98.6 degrees, pulse 103, respirations 22, blood pressure 99/64. General: This is an emaciated, chronically ill-appearing, middle-aged female. She is lethargic. She does not appear to be in any acute distress. Head, Eyes, Ears, Nose and Throat: Patient has decreased hearing. She can see near objects. She continues to have a white coating of her tongue. Neck: No pain with movement. Lungs: There were bilateral rhonchi. Cardiovascular: Heart rate is regular. Abdomen: Soft and nontender. Thorax: Patient has an increased AP diameter of the chest. Neurologic: The patient is lethargic. She is trying to sleep. She did not move her extremities when I requested her to do so. The patient does not have a tremor. LAB AND X-RAY: There is no new radiographic study for today. The sputum is growing a gram- negative yodit. The patient's liver function studies are normal. Creatinine is 0.6, GFR is greater than 60. There is no CBC present this morning. ASSESSMENT AND PLAN: Since the patient pulls out her IVs frequently, I have switched all of her medicine to p.o. with the exception of the patient's fluconazole. The patient has esophageal candidiasis despite being on fluconazole. Therefore, I am going to stop the fluconazole and place the patient on micafungin and hopefully the patient will leave in a peripheral IV. As regarding the patient's pneumonia, I plan to continue Septra and it is being given p.o. She does have in her sputum a gram-negative yodit and she is on p.o. Levaquin for that. I am going to switch the patient from fluconazole p.o. to micafungin IV and hopefully the patient will leave in her IV. I am also going to continue nystatin swish and swallow. COMORBIDITIES: The patient has advanced case of AIDS and is complicated by a pulmonary infection. She has severe COPD and malnutrition. cc: Chao Adams MD
[2019-07-04] MEDS: PULMICORT INH SCH (09:26)
[2019-07-04] MEDS: NS NEB INH SCH ×2 (09:27→15:22)
[2019-07-04] MEDS: ICAR-C PO SCH (09:48)
[2019-07-04] MEDS: NICODERM PATCH TD SCH (09:48)
[2019-07-04] MEDS: CENTRUM SILVER PO SCH (09:49)
[2019-07-04] MEDS: MYCOSTATIN SUSP PO SCH ×3 (09:49→16:47)
[2019-07-04] MEDS: LEVAQUIN PO SCH (09:49)
[2019-07-04] MEDS: DEBROX OTIC DROPS BOTH EARS SCH (09:49)
[2019-07-04] MEDS: FOLIC ACID PO SCH (09:50)
--- NOTE | 2019-07-04 10:02 | INFECTIOUS DISEASE PROGRESS NO ---
DATE: 07/04/2019 ADDENDUM: The patient's sputum Gram negative yodit has been identified as Pseudomonas aeruginosa. The patient already is on Levaquin and the patient's Pseudomonas isolate is susceptible to Levaquin. Therefore, I will continue Levaquin to treat the Pseudomonas pneumonia. cc: Chao Adams MD
--- NOTE | 2019-07-04 12:25 | GASTROENTEROLOGY PROGRESS NOTE ---
DATE: 07/04/2019 SUBJECTIVE: Ms Cordoba is a 53-year-old female, resting in bed. Denied any nausea, vomiting, or abdominal pain, but complained of ear pain bilaterally. She has been tolerating her diet very well. OBJECTIVE: Vital Signs: Temperature is 98.1 degrees, pulse is 121, respirations 20, blood pressure is 106/73, oxygen saturation is 100% on 2 L nasal cannula. Her weight is 76 pounds. BMI is 13.5 kg/m2. HEENT: Pale conjunctivae. No icterus. Neck: Supple. Lungs: Clear to auscultation in the anterior carpio. Heart: Regular rate and rhythm. No murmurs, rubs, or gallops heard on auscultation. Abdomen: Soft, nontender, nondistended. Active bowel sounds heard in all 4 quadrants. Extremities: No cyanosis, clubbing, or edema. 2+ pedal pulses noted bilaterally. Neurologic: Alert, oriented x3. LABORATORY: WBC 2.26, RBC 2.82, Hemiglobin 7.9, Hematocrit 25.2, Platelet count 220.000, sodium 132, potassium 4.3, BUN 11, Creatinine 0.6, calcium 7.9, phosphorus 2.5, magnesium 2.5, total bilirubin <0.15, AST 28, ALT 15, Alkaline Phosphate 91. IMPRESSION AND PLAN: 1. Diarrhea. 2. Nausea and vomiting. 3. Dysphagia. 4. Anemia . 5. Severe cachexia. 6. 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 Vitamin D deficiency. 8. Severe emphysema. 9. Chronic respiratory failure. 10. Tobacco abuse. 11. Drug abuse. 12. Atypical pneumonia PLAN: EGD and flexible sigmoidoscopy was done yesterday. EGD findings were maurisio esophagitis, severe, from the oral cavity through the entire esophagus, mild reflux esophagitis, hiatal hernia sliding type measuring 4 cm. The stomach mucosa was normal, Duodenal mucosa showed no abnormalities. Biopsies were taken, awaiting the results of the biopsies. Flexible sigmoidoscopy findings showed stools in the colon, No evidence of colitis. Mild internal hemorrhoids noted. Random biopsies were taken, awaiting the biopsy results. We will continue with the current plan of care, she is on GI soft diet and ensure for her nutrition, GI prophylaxis protonix twice a day, For her anemia, she is on iron, multivitamin, folic acid and also on vitamin D. She is IV micafungin for maurisio esophagitis and nystatin for thrush per infectious disease. For her HIV she is on Triumeg HAART therapy. Patient is receiving Debrox otic drops BID for her ear pain. Discussed with patient on following an antireflux lifestyle by avoiding acidic foods, spicy foods, elevating the head of the bed and sitting upright after every meals, to stop smoking and having illicit drugs.Patient acknowledges understanding of the instructions. We will continue to follow the plan of care per PCP and the infectious disease team. This plan was discussed with Dr. Hammond. Please call us for any further questions or concerns. Dictated by MADHAVI Arriola for Manuel Hammond MD Physician Attestation I have seen and examined the patient. I have discussed and reviewed the the note by Dina HENDRICKSON and agree with findings and plan as documented. Ms. Cordoba is a 53 year old woman with AIDS who presented with bilateral pneumonia from pseudomonas, diarrhea, and cachexia. GI consulted for diarrhea. Infectious workup negative to date. EGD and sigmoidoscopy revealed Maurisio esophagitis and internal hemorrhoids, respectively. SB and colonic biopsies were obtained to rule out OIs. She is tolerating diet and diarrhea has improved. Patient is being discharged today. GI to follow-up pathology results. She will follow-up with ID. GARCIA
--- NOTE | 2019-07-04 15:11 | INFECTIOUS DISEASE PROGRESS NO ---
DATE: 07/04/2019 The patient is being discharged today on Septra DS 1 p.o. every 8 hours, fluconazole 200 mg daily, and Levaquin 500 mg p.o. daily. I have requested that the patient have an appointment in my office in 10 days. The patient also will need to see the clinic in [place] where she goes for her HIV treatment as soon as possible. cc: Chao Adams MD
[2019-07-04 16:30] VITALS: BP 113/66
[2019-07-04] MEDS: NON-FORMULARY MED PO SCH (16:46)
--- NOTE | 2019-07-05 09:53 | DISCHARGE SUMMARY ---
ADMISSION DATE: 06/27/2019 DISCHARGE DATE: 07/04/2019 DISCHARGE DIAGNOSES: 1. Chronic hypoxemic respiratory failure. 2. Atypical pneumonia. 3. Severe cachexia, severe protein calorie malnutrition. 4. Human immunodeficiency virus with low CD4 count, likely due to medical noncompliance. 5. Severe emphysema. 6. Vitamin D and folic acid deficiency. 7. Diarrhea. 8. Severe chronic obstructive pulmonary disease with ongoing nicotine addiction and tobacco use. 9. History of drug abuse. PROCEDURES PERFORMED: 1. Chest x-ray dated 06/27/2019 impression: Severe COPD, bilateral infiltrates suggesting bronchopneumonia. 2. Chest abdomen and pelvis CT scan dated 06/27/2019 impression: Advanced pulmonary emphysema, patchy airspace consolidation throughout the mid and lower lung zones bilaterally with tree-in- bud opacities most consistent with an atypical pneumonia that has worsened since the previous study. Very limited abdominal and pelvic CT due to severe cachexia and lack of intravenous contrast, significant amount of air in the urinary bladder lumen that may have been a recent catheter place. No definite acute abdominal or pelvic pathology otherwise given the significant limitation of the study. 3. Chest x-ray dated 06/30/2019 impression: No acute abnormality, right-sided PICC line. 4. Chest x-ray dated 07/02/2019 impression: Chronic obstructive pulmonary disease exacerbated by bronchopneumonia. 5. Humerus x-ray dated 07/02/2019: There is no fracture or dislocation, periosteal reaction or erosion. No radiopaque foreign bodies demonstrated. HOSPITAL COURSE: A 53-year-old female cachectic hospitalized on 06/27/2019 presented with extreme nausea, no appetite, difficulty swallowing and more weight loss, shortness of breath and subjective fever. She was admitted for failure to thrive. She had images that showed pneumonia. Infectious Disease Department was consulted. This patient has been on Triumeq at home, but as per the patient because of the nausea and vomiting she has been taking it on and off. Also the CT scan showed an advanced COPD and she has been on oxygen. Because she was not able to eat or drink anything, a PICC line was placed and she was placed on TPN. She started receiving treatment with antibiotics and also fungal medication, since she does have a Lana esophagitis, even though she has been on fluconazole at home. We restarted her home medications with Triumeq like I said. Infectious Disease Department got on board. We asked for a CD4 count that was low. Immunoglobulin level was within normal limits, though. Pulmonary Department evaluated also the patient. We encouraged smoking cessation every single day. The patient was improving on a daily basis. She had an endoscopic procedure done that showed Lana esophagitis, which is severe from the oral cavity to the entire esophagus. Mild reflux esophagitis noted at the distal esophagus as well. We had a sputum culture that showed Pseudomonas that is sensitive to levofloxacin. This patient is feeling much better today. We will discharge this patient home. We encouraged the patient to follow up with her Infectious Disease doctor to treat her HIV. She has been eating without any kind of problem at this moment. She pulled out her PICC line a few days ago. We recommended to continue her medications and take her medications as prescribed, follow up with her primary care doctor in 1 week and follow up with here Infectious Disease doctor for her HIV treatment. Our Infectious Disease Department will prescribe her medications to go home with, which will be levofloxacin as well as Septra DS and antifungal medication as well. PHYSICAL EXAMINATION: Vital Signs: Temperature 97.2 degrees, pulse 120, respiratory rate 20, blood pressure 100/59, oxygen saturation 100% on 2 L of nasal cannula. General: Chronically ill patient, cachectic. HEENT: Head normocephalic, no trauma. PERRLA. Neck: Neck is supple. No JVD. No masses. Central trachea. Chest: Decreased breath sounds at the bases with some crepitus at the bases as well. Cardiovascular: RRR. Abdomen: Soft, nontender, nondistended. No hepatosplenomegaly. Extremities: No edema, no clubbing, no cyanosis. Decreased muscle mass. Neurological examination: Patient is alert. She is oriented x3. No focal deficits, but weakness. LABORATORY: Sodium 133, potassium 4.3, chloride 99, bicarbonate 24. BUN 11, creatinine 0.6. Glucose 90, calcium 7.9, phosphorus 2.5, albumin 2.6. DISCHARGE MEDICATIONS: Triumeq p.o. daily, albuterol 2.5 mg inhaler q. 4 to 6 hours as needed for shortness of breath, vitamin D 5000 units by mouth every 7 days, folic acid 1 mg p.o. daily, Icar- C 1 tablet p.o. b.i.d., Centrum Silver 1 tablet p.o. daily, Protonix 40 mg p.o. q. 12 hours for 1 month and then daily for 2 more months, Phenergan 12.5 mg p.o. q. 6 hours as needed and Spiriva 2 puff inhaler daily. HOME MEDICATIONS: She will go home with medications like levofloxacin, Septra, antifungal medication likely fluconazole as directed by Dr. Adams, Infectious Disease Department. We have contacted our transition social worker and home health care case manager. We will try to give her the medications to home so she can take the antibiotics at home, and also she has requested a walker. TIME DISCHARGING THIS PATIENT: 35 minutes. cc: Daniel Licea MD
--- NOTE | 2019-07-10 17:04 | PROVIDER DOCUMENTATION ---
This chart was entered by Luh Ahn Scribe, acting as scribe for Colette Amin MD. HPI-Respiratory General - General Chief Complaint: Shortness of Breath Stated Complaint: WEAKNESS Time Seen by Provider: 06/27/19 11:59 Source: patient Allergies/Adverse Reactions: Patient Allergies Allergy/AdvReac Type Severity Reaction Status Date / Time No Known Allergies Allergy Verified 02/17/19 00:14 Home Medications: Home Medication List Medication Instructions Recorded Confirmed Last Taken Type Abacavir/Dolutegravir/Lamivudi 1 ea PO DAILY 01/07/19 06/27/19 Unknown History [Triumeq 600-50-300 mg Tablet] Albuterol [Albuterol Neb] 2.5 mg INH Q4-6H PRN PRN 02/17/19 06/27/19 Unknown History Fluconazole 400 mg PO DIRECTED 02/17/19 06/27/19 Unknown History Tiotropium [place] Inhaler 2 puff INH RTDAILY 02/17/19 06/27/19 Unknown History [Spiriva] Fluconazole 200 mg PO DAILY #21 tab 04/10/19 06/27/19 Unknown Rx Ergocalciferol (Vitamin D2) 50,000 unit PO Q7D #12 cap 07/04/19 Unknown Rx [Vitamin D] Folic Acid 1 mg PO DAILY tab 07/04/19 Unknown Rx Iron Carbonyl/Ascorbic Acid 1 ea PO BID tab 07/04/19 Unknown Rx [Icar-C] Multivitamins/Minerals [Centrum 1 ea PO DAILY tab 07/04/19 Unknown Rx Silver] Pantoprazole [Protonix] 40 mg PO Q12H #120 tab 07/04/19 Unknown Rx Promethazine [Phenergan] 12.5 mg PO Q6H PRN PRN #10 tab 07/04/19 Unknown Rx - History of Present Illness-Resp Nature of Presenting Problem: 53yof presents to ED cc SOB, wheezing and weakness. Pt reports she has AIDS and COPD. Pt is very frail, thin and toxic looking upon exam. Quality of Pain: reports: aching, tightness Severity in ED: reports: moderate Onset/Duration: reports: unsure Timing: reports: still present Cough Quality/Degree: reports: no cough Episode Frequency: frequent episodes Current Respiratory Medication Therapy: Initiated see nurses note Modifying Factors: worse with: exertion Associated Symptoms: reports: muscle/bodyaches, shortness of breath, short of breath, wheezing Similar Symptoms Previously?: Yes Recently seen or treated by another doctor?: Yes Review of Systems - Adult - REVIEW OF SYSTEMS - ADULT Constitutional: reports: see HPI, [place]. denies: chills, fever Eyes: reports: no symptoms reported Ears, Nose, Mouth & Throat: reports: no symptoms reported Cardiovascular: reports: see HPI. denies: chest pain Respiratory: reports: see HPI, shortness of breath, wheezing. denies: cough Gastrointestinal: reports: see HPI. denies: diarrhea, nausea, vomiting Genitourinary: reports: no symptoms reported Musculoskeletal: reports: no symptoms reported Integumentary: reports: no symptoms reported Neurological: reports: no symptoms reported Psychiatric: reports: no symptoms reported Endocrine: reports: no symptoms reported Hematologic/Lymphatic: reports: no symptoms reported Allergic/Immunologic: reports: no symptoms reported All Other Systems: Reviewed and Negative Past History - Adult - PAST MEDICAL HISTORY-ADULT Review of Records: reports: Nursing Assessment Review, Medications Reviewed, Social history reviewed & non-contributory. Major Childhood Illnesses: reports: other (HIV since 1989) Cardiovascular: reports: denies history Respiratory: reports: asthma, COPD, pneumonia Gastrointestinal: reports: denies history Obstetrical/Gynecological: reports: denies history Genitourinary: reports: denies history Musculoskeletal: reports: denies history Neurological: reports: denies history Psychiatric: reports: anxiety Endocrine/Immune: reports: HIV/AIDS Other Conditions: reports: denies history - PRIOR SURGERIES/PROCEDURES Surgical/Procedure History: reports: appendectomy, cholecystectomy, orthopedic (extremity) (plates in the left arm) - IMMUNIZATION STATUS Childhood Immunizations: See Nurse Assessment Flu Vaccine: See Nurse Assessment - FAMILY HISTORY Family History: reviewed, not pertinent - SOCIAL HISTORY Smoking: cigarettes, less than 1 pack/day Physical Exam-General - PHYSICAL EXAM-ADULT Initial Vital Signs Reviewed: Yes - CONSTITUTIONAL General Appearance: alert, cachetic, thin (extremely). negative: anxious, combative - EYES Eyes: PERRL/EOMI, pink conjunctivae. negative: photophobia - HEAD, EARS, NOSE, MOUTH & THROAT HENMT: normocephalic/atraumatic, dental decay (severe throughout). negative: moist mucous membranes (very dry), angioedema - RESPIRATORY Respiratory: chest non-tender, normal breath sounds, rhonchi, wheezing, other (tachypneic). negative: accessory muscle use, crackles - CARDIOVASCULAR Cardiovascular: normal peripheral pulses, tachycardia. negative: bradycardia - SKIN Integumentary: other (pt is very frail and skin very dry). negative: diaphoresis, jaundice - PSYCHIATRIC Psych/Mental Status: normal mood/affect, oriented x 3. negative: anxious, dishe veled - HEART Score HEART Score: History: Moderately Suspicious HEART Score: ECG: Non-Specific Repolarization Disturbance/LBBB/PM HEART Score: Age: 45-65 Years HEART Score: Risk Factors for Atherosclerotic Disease: 1 or 2 Risk Factors Progress - PLAN OF CARE/RESULTS Progress/Plan/Lab Results: Orders Category Date Time Status Admit - [facility] Routine AdmDCTranf 06/27/19 15:12 Active Activity - Up with Assistance ORDERED Care 06/27/19 15:12 Active Apply Mechanical Device [QM] ORDERED Care 06/27/19 16:06 Active Cardiac Monitoring DIRECTED Care 06/27/19 12:15 Completed Elevate Head of Bed DIRECTED Care 06/27/19 16:06 Active Encourage Fluids DIRECTED Care 06/27/19 16:06 Active IV Insertion ORDERED Care 06/27/19 12:15 Completed Intake and Output-Strict Q 8-HR ASSESS Care 06/27/19 16:06 Active Notify MD of + Sepsis Screen NOW Care 06/27/19 12:15 Completed Notify Physician As Ordered Care 06/27/19 12:15 Completed Nursing- Assist w/ IS as order ORDERED Care 06/27/19 16:06 Active Resuscitation Status Routine Care 06/27/19 15:08 Completed Turn, Cough and Deep Breathe Q2HR Care 06/27/19 16:06 Active Update & Confirm Home Medicati ROUTINE Care 06/27/19 15:12 Completed Vital Signs Order Q 4-HR ASSESS Care 06/27/19 16:06 Active Z-Document. for Tele Applied ORDERED Care 06/27/19 16:06 Completed Palliative Care Consult [OM.CSS] Routine Cons 06/27/19 15:12 Active Social Service Consult Routine Cons 06/27/19 16:06 Active Regular Diet Diet 06/27/19 15:13 Completed CHEST-1 VIEW [RAD] Stat Exams 06/27/19 12:15 Completed BLOOD CULTURE [BLDCUL] Stat Lab 06/27/19 13:12 Completed CBC WITH DIFF [HEME] Q24H Lab 06/29/19 06:17 Completed CBC WITH DIFF [HEME] Q24H Lab 06/30/19 08:55 Completed CBC WITH DIFF [HEME] Q24H Lab 07/01/19 05:07 Completed CBC WITH DIFF [HEME] Q24H Lab 07/02/19 04:55 Completed CBC WITH DIFF [HEME] Q24H Lab 07/03/19 05:10 Completed CBC WITH DIFF [HEME] Stat Lab 06/27/19 10:50 Completed CK PROFILE [SP CHEM] Stat Lab 06/27/19 12:20 Completed COMPREHENSIVE METABOLIC PANEL [CHEM] Q24H Lab 06/28/19 04:50 Completed COMPREHENSIVE METABOLIC PANEL [CHEM] Stat Lab 06/27/19 12:20 Completed LACTATE, PLASMA [CHEM] Lab 06/27/19 13:12 Completed LACTATE, PLASMA [CHEM] Lab 06/27/19 15:40 Completed LACTATE, PLASMA [CHEM] Lab 06/27/19 17:13 Completed PROTIME WITH INR [COAG] Stat Lab 06/27/19 13:12 Completed PTT [COAG] Stat Lab 06/27/19 13:12 Completed SPUTUM CULTURE WITH GRAM STAIN [RM] Routine Lab 07/01/19 22:00 Completed TROPONIN T Stat Lab 06/27/19 10:50 Completed URINALYSIS W/POSS RFLX CULT [URINALYSIS] Stat Lab 06/27/19 14:27 Completed 0.9% Sodium Chloride Inj [Ns] 1,000 ml Med 06/27/19 15:15 Discontinued IV 75 mls/hr 0.9% Sodium Chloride Inj [Ns] 1,000 ml Med 06/27/19 14:34 Discontinued IV 999 mls/hr Albuterol 2.5MG/Ipratrop 0.5MG [Duoneb (A & A)] Med 06/27/19 14:37 Discontin ued 3 ml INH NOW ONE Albuterol 2.5MG/Ipratrop 0.5MG [Duoneb (A & A)] Med 06/27/19 16:00 Dis continued 3 ml INH RTQ6H Budesonide [Pulmicort] Med 06/27/19 19:30 Discontinued 0.25 mg INH RTBID CefTRIAXONE [Rocephin] Med 06/27/19 14:36 Discontinued 1 gm IV NOW ONE CefTRIAXONE [Rocephin] 1 gm Med 06/28/19 15:00 Discontinued 0.9% Sodium Chloride Inj [Ns] 50 ml IV Q24H Potassium Chloride 10 Meq/Swi Med 06/27/19 14:35 Discontinued 10 meq in 100 ml IV ONCE Sodium Chloride 0.9% 10 ml Med 06/27/19 15:21 Discontinued .ROUTE As directed Aerosol Treatments Routine Ot 06/27/19 14:38 Completed Aerosol Treatments Routine Ot 06/27/19 15:12 Completed Aerosol Treatments Stat Ot 06/27/19 14:38 Completed Incentive Spirometer Routine [facility] 06/27/19 16:06 Completed Oxygen Device Routine [facility] 06/27/19 16:06 Completed Oxygen Device Stat [facility] 06/27/19 12:15 Completed Pulse Oximetry Routine [facility] 06/27/19 16:06 Completed Telemetry [OM.EQ] Routine Ot 06/27/19 16:06 Active EKG [EKG] Stat Ther 06/27/19 11:32 Draft Physical Therapy Eval/Treatment [OM.PT] Routine Ther 06/27/19 16:06 Active Swallow Evaluation [OM.SPT] Routine Ther 06/27/19 16:06 Active Transfer/Admit Order [TRANSFER] Routine Transfer 06/27/19 15:07 Completed Result Diagrams: 07/03/19 05:10 07/04/19 05:10 - EKG 1 Time of EKG reading by physician:: 11:32 EKG Read and Signed by:: Colette Amin EKG Interpretation (*Must complete 3 of following elements*): Abnormal Rate: 97 Rhythm: nsr Norman: normal ST Wave: non-specific ST changes - XRAY 1 XRAY: Bilateral XRAY Study: Chest Impression: See EMR Report (IMPRESSION: Severe COPD. Bilateral infiltrates suggesting bronchopneumonia. Electronically signed by Smith Bryan 06/27/2019 12:26 PM) - CONSULTS/PCP/HOSPITALIST Notification #1 *Consult/PCP/Hospitalist*: Kassandra/SPEECH LANGUAGE PATHOLOGIST TRAVEL [email or web address] Time Discussed: 14:18 Consult Disposition: Admit (accepted pt) Departure - Departure Date of Disposition Decision: 06/27/19 Time of Disposition Decision: 14:21 DIAGNOSIS: Atypical pneumonia Disposition: ADMITTED INPATIENT 09 Certified Medical Emergency: Emergent Condition: Fair - Critical Care Note This patient required my direct & personal management of CC.: No Attestation - Physician/ HAIR Attestation Patient care was provided by Advanced Practice Provider:: No The physician spent face to face time with patient:: Yes Advanced Practice Provider documentation review:: Supervising physician onsite and consulted in the evaluation and care of this patient. The physician did have a face to face encounter with the patient. This chart was documented by the indicated scribe, (Luh Ahn, Sohail) and accurately reflects the services I performed and decisions made by me, Lynnette Amin MD, as attested by the provider's signature.
== END 2019-07-04 17:15 | disposition home or self-care (01) | DRG 974 ==
LOC: SUPCPDRO → ED 11:06 → SUATTDRO 15:28 → 1N 15:28
PROVIDERS: ATTEND Internal Medicine

== ENCOUNTER 2019-07-17 16:42 | Inpatient (IN) ==
[2019-07-17] MEDS ORDERED: DUONEB (A & A) INH ONE (16:58)
[2019-07-17] MEDS ORDERED: NS 1,000 ML IV ONE (16:59)
[2019-07-17] MEDS ORDERED: XYLOCAINE 2% VISCOUS MT ONE (17:12)
[2019-07-17] MEDS ORDERED: SOLU-MEDROL IV ONE (17:13)
--- NOTE | 2019-07-17 17:21 | PROVIDER DOCUMENTATION ---
This chart was entered by Angie Walker Scribe, acting as scribe for Mariam Mak CRNP. HPI-General Adult - General Chief Complaint: Mouth Pain Stated Complaint: THRUSH IN MOUTH Time Seen by Provider: 07/17/19 16:50 Source: patient, family (), old records Allergies/Adverse Reactions: Patient Allergies Allergy/AdvReac Type Severity Reaction Status Date / Time No Known Allergies Allergy Verified 07/17/19 16:56 Home Medications: Home Medication List Medication Instructions Recorded Confirmed Last Taken Type Albuterol [Albuterol Neb] 2.5 mg INH Q4-6H PRN PRN 02/17/19 07/17/19 Unknown History Fluconazole 400 mg PO DIRECTED 02/17/19 07/17/19 Unknown History Tiotropium P[place]tt Inhaler 2 puff INH RTDAILY 02/17/19 07/17/19 Unknown History [Spiriva] Promethazine [Phenergan] 12.5 mg PO Q6H PRN PRN #10 tab 07/04/19 07/17/19 Unknown Rx - History of Present Illness -Gen Adult Nature of Presenting Problems: 54 yowf presents to the ed with c/o mouth pain and thrush for 1 month, worse the past 3 days. pt sts she has AIDS and T cell is 0. pt was recently admitted to hospital for FTT and PNA from 06/27-07/04. pt states appetite has mildly returned but is to painful to eat. reports worsening SOB today. pt is ill appearing, cachetic, dry mucous membrane, and in moderate distress upon examination. reports subjective fever yesterday. pt is on home O2 @ 2LPM. denies abdominal pain, vomiting, or CP. Location of Pain/Injury: reports: mouth Pain Radiation: reports: no radiation Quality of Pain: reports: aching Severity: reports: moderate Onset/Duration: reports: 3 days ago (worse), other (1 month) Timing: reports: still present, constant, getting worse Context/Activities at Onset: reports: light activity Modifying Factors: improves with: nothing. worse with: eating Associated Symptoms: reports: cough, EENT symptoms, fever/chills (subjective yesterday), shortness of breath, other (weight loss). denies: back/neck pain, chest pain, diarrhea, headaches, nausea, syncope, vomiting Similar Symptoms Previously?: Yes Recently seen or treated by another doctor?: Yes (was at [facility] last wee k; admitted inpatient 06/27-07/04) Review of Systems - Adult - REVIEW OF SYSTEMS - ADULT Constitutional: reports: see HPI, fever, weight loss (6 pounds since discharge 07/04/19). denies: chills Eyes: reports: no symptoms reported Ears, Nose, Mouth & Throat: reports: see HPI, mouth/dental pain, throat pain. denies: ear pain, hoarseness Cardiovascular: denies: chest pain, palpitations, syncope Respiratory: reports: see HPI, cough, dyspnea on exertion, shortness of breath, wheezing Gastrointestinal: reports: see HPI, poor appetite. denies: abdominal pain, diarrhea, nausea, vomiting Genitourinary: reports: no symptoms reported Musculoskeletal: reports: no symptoms reported. denies: back pain, neck pain Integumentary: reports: no symptoms reported Neurological: denies: dizziness/vertigo, headache/migraines Psychiatric: reports: no symptoms reported Endocrine: reports: no symptoms reported Past History - Adult - PAST MEDICAL HISTORY-ADULT Review of Records: reports: Old Records Reviewed, Nursing Assessment Review, Medications Reviewed Major Childhood Illnesses: reports: other (HIV since 1989) Cardiovascular: reports: denies history Respiratory: reports: asthma, COPD, pneumonia Gastrointestinal: reports: GERD Obstetrical/Gynecological: reports: denies history Genitourinary: reports: denies history Musculoskeletal: reports: denies history Hand Dominance: Right Handed Neurological: reports: denies history Psychiatric: reports: anxiety Endocrine/Immune: reports: HIV/AIDS, immunosuppression Other Conditions: reports: denies history - PRIOR SURGERIES/PROCEDURES Surgical/Procedure History: reports: appendectomy, cholecystectomy, orthopedic (extremity) (plates in the left arm) - IMMUNIZATION STATUS Childhood Immunizations: See Nurse Assessment Flu Vaccine: See Nurse Assessment - FAMILY HISTORY Family History: reviewed, not pertinent - SOCIAL HISTORY Smoking: cigarettes, greater than 1 pack/day Provider spent 3-5 mins advising pt. on dangers of tobacco.: Discussed manners to quit use, and f/u contacts for add'l counseling. Substance Use: denies Alcohol Use Frequency: never Living Situation: family Physical Exam-General - PHYSICAL EXAM-ADULT Initial Vital Signs Reviewed: Yes - CONSTITUTIONAL General Appearance: alert, moderate distress, cachetic. negative: appears well (ill appearing), lethargic, slow to respond, obtunded - EYES Eyes: PERRL/EOMI, pale conjunctivae. negative: scleral icterus - HEAD, EARS, NOSE, MOUTH & THROAT HENMT: dental decay, other (white patches in on palate and tongue). negative: moist mucous membranes (dry oral), pharynx normal, angioedema - NECK Neck: full range of motion, supple, normal inspection - RESPIRATORY Respiratory: chest non-tender, no accessory muscle use, respiratory distress (mild SOB), wheezing (expiratory bilateral lung carpio). negative: no pleuratic chest pain, crackles, rales, rhonchi, stridor, retractions, splinting - CARDIOVASCULAR Cardiovascular: normal peripheral pulses, tachycardia (115) - CHEST (BREASTS) Chest/Breast: deferred - GASTROINTESTINAL (ABDOMEN) Abdominal Exam: non tender, soft. negative: guarding, rigid, rebound - MUSCULOSKELETAL Back Exam: normal inspection, no CVA tenderness, no vertebral tenderness Extremity: normal range of motion, pelvis stable - SKIN Integumentary: warm/dry, pallor. negative: cyanosis, jaundice, mottled - NEUROLOGIC Neurologic: grossly normal. negative: abnormal gait, aphasia, EOM palsy - PSYCHIATRIC Psych/Mental Status: normal mood/affect, normal thought content, normal thought process, oriented x 3 Progress - PLAN OF CARE/RESULTS Progress/Plan/Lab Results: Vital Signs - 8 hr 07/17/19 16:46 Temperature 97.7 F Pulse Rate 115 H Respiratory Rate 18 Blood Pressure 118/70 O2 Sat by Pulse Oximetry 95 Lab results, imaging results, and plan of care discussed with patient who verbalizes understanding. Discussed with patient need for inpatient admission for which she accepts. Plan of care discussed and formulated in conjunction with Dr. Eduardo. Result Diagrams: 07/17/19 17:00 07/17/19 17:00 - REASSESSMENT Reassessment #1 Time Reassessed: 17:51 Status: improving - EKG 1 Time of EKG reading by physician:: 17:48 EKG Read and Signed by:: Dayo Eduardo EKG Interpretation (*Must complete 3 of following elements*): Normal Rate: 96 Rhythm: nsr [place]: normal QRS: normal [place] Interval: normal ST Wave: normal - XRAY 1 XRAY: Bilateral XRAY Study: Chest Impression: See EMR Report ([facility] - [address], [address], [place] [address] [facility] - [address] [place] [address] Department of Imaging Patient: TAQUERIA VAZQUEZ Date: 07/17/19MR#: [id number] : 1965ADM Status: REG [facility]#: [id number] Age/Sex: 54/FRoom/Bed: Loc: P.ED Ordering Physician: Mariam Miles Family Physician: None,PCP Reason for Procedure: SOB; wheezing; AIDS Signed CHEST-2 VIEWS - 07/17/2019 INDICATION: SOB; wheezing; AIDS COMPARISON: 07/02/2019 FINDINGS: Stable hyperexpanded lungs suggesting COPD. There is some bronchitis in the lung bases that has improved since prior. No new infiltrates. Heart size is normal. No pneumothorax or pleural effusion. IMPRESSION: COPD. Improving bilateral interstitial infiltrates suggesting bronchitis. Electronically signed by Smith Bryan 07/17/2019 6:03 PM 07/17/191802 Interpreting Physician: Smith Bryan MD Dictated Date/Time: 07/17/19 180 cc: Mariam Mak; None,PCP) - CONSULTS/PCP/HOSPITALIST Notification #1 *Consult/PCP/Hospitalist*: Alan Hospitalist Time Discussed: 18:55 Reason/Comments: Thrush, SOB, dyspnea, COPD exacerbation, FTT Consult Disposition: Admit (@ DG for GI consult) #2 Consult: ROYER Bolanos Hospitalist Time Discussed: 19:10 Reason/Comments: AIDS; Thrush; SOB; COPD exacerbation; FTT Consult Disposition: Admit (@ DG) Departure - Departure Date of Disposition Decision: 07/17/19 Time of Disposition Decision: 19:10 DIAGNOSIS: COPD exacerbation, Thrush, oral, AIDS, Hypokalemia, Macrocytosis, Cachexia associated with AIDS, Polysubstance abuse Dyspnea Qualifiers: Dyspnea type: shortness of breath Qualified Code(s): R06.02 - Shortness of breath Failure to thrive Qualifiers: Failure to thrive age range: in adult Qualified Code(s): R62.7 - Adult failure to thrive Anemia Qualifiers: Anemia type: unspecified type Qualified Code(s): D64.9 - Anemia, unspecified Disposition: ADMITTED INPATIENT 09 Certified Medical Emergency: Emergent Condition: Fair - Critical Care Note This patient required my direct & personal management of CC.: Yes Total Time (mins): 38 Critical Care Statement: This patient required my direct personal management to treat or rule out processes, the absence of which, could potentiallly result in sudden, clinically significant life or limb threatening deterioration. Attestation - Physician/ HAIR Attestation Patient care was provided by Advanced Practice Provider:: Yes Advanced Practice Provider:: Mariam Mak Advanced Practice Provider documentation review:: The Mid-level provider documentation, treatment plan and medical decision making was reviewed by the physician who agrees with all treatment and medical decision making by the MLP. The physician spent face to face time with patient:: No Advanced Practice Provider documentation review:: Supervising physician onsite and consulted in the evaluation and care of this patient. The physician did not have a face to face encounter with the patient. This chart was documented by the indicated scribe, (Angie Walker Scribe) and accurately reflects the services I performed and decisions made by me, Mariam Mak CRNP, as attested by the provider's signature.
[2019-07-17 17:47] LABS: BASO# 0.01 X1000 (0.0-0.2); BASO% 0.5 % (0.0-0.8); EOS# 0.02 X1000 (0.0-0.7); EOS% 0.9 % (0.0-10.0); HEMATOCRIT 29.6 % (37.0-47.0); HEMOGLOBIN 9.5 g/dL (12.0-16.0); IMM GRAN# 0.05 X1000 (0.0-0.04); IMM GRAN% 2.4 % (0.0-0.5); LYMPH% 23.7 % (20.5-51.1); MCH 29.8 PG (27-31); MCHC 32.1 g/dL (33-37); MCV 92.8 FL (81-99); MONO# 0.55 X1000 (0.11-0.59); MONO% 26.1 % (1.7-9.3); MPV 8.2 FL (7.4-10.4); NEUT# 0.98 X1000 (1.4-6.5); NEUT% 46.4 % (42.2-75.2); PLT 383 X1000 (130-400); RBC 3.19 XMIL (4.2-5.4); RDW 18.8 % (11.5-14.5); WBC 2.11 X1000 (4.8-10.8)
[2019-07-17 17:55] LABS: AGAP 12; ALBUMIN 3.6 g/dL (3.5-5.0); ALKALINE PHOSPHATASE 137 U/L (32-104); BUN 8 mg/dL (8-22); CALCIUM 8.6 mg/dL (8.8-10.2); CHLORIDE 102 mmol/L (98-107); COSMO 271; CREATININE 0.7 mg/dL (0.5-0.9); ESTIMATED GFR > 60; GLUCOSE 109 mg/dL (70-104); GOT 37 U/L (10-30); GPT 20 U/L (10-36); POTASSIUM 2.9 mmol/L (3.5-5.1); SODIUM 136 mmol/L (136-145); TCO2 22 mmol/L (25-35); TOTAL PROTEIN 7.5 g/dL (6.3-8.3)
[2019-07-17] MEDS ORDERED: NS + KCL 40 MEQ 1,000 ML IV SCH (18:00)
--- NOTE | 2019-07-17 18:06 | Diag Imaging Result Doc PS360 ---
CHEST-2 VIEWS - 07/17/2019 INDICATION: SOB; wheezing; AIDS COMPARISON: 07/02/2019 FINDINGS: Stable hyperexpanded lungs suggesting COPD. There is some bronchitis in the lung bases that has improved since prior. No new infiltrates. Heart size is normal. No pneumothorax or pleural effusion. IMPRESSION: COPD. Improving bilateral interstitial infiltrates suggesting bronchitis. Electronically signed by Smith Bryan 07/17/2019 6:03 PM
[2019-07-17 18:12] LABS: LYMPHS 27 % (21-51); MONO 26 % (1-9); SEGS 47 % (42-75)
[2019-07-17 18:29] LABS: INR 0.91; PROTIME 12.7 Seconds (11.0-16.0)
[2019-07-17 18:30] LABS: PTT 32.6 Seconds (22.3-41.8)
[2019-07-17 18:41] LABS: BILIRUBIN URINE NEGATIVE (NEGATIVE); BLOOD URINE 1+ (NEGATIVE); CLARITY CLEAR (CLEAR); COLOR YELLOW; GLUCOSE URINE NEGATIVE (NEGATIVE); KETONE URINE NEGATIVE (NEGATIVE); LEUKOCYTES URINE NEGATIVE (NEGATIVE); NITRITE URINE NEGATIVE (NEGATIVE); PH URINE 6.5; PROTEIN URINE TRACE mg/dL (NEGATIVE); UROBILINOGEN URINE NORMAL
[2019-07-17 18:45] LABS: UR AMPHETAMINES QUAL PRESUMPTIVE POSITIVE (NONE DETECT); UR BARBITUATES QUAL NONE DETECTED (NONE DETECT); UR BENZODIAZEPIN QUAL NONE DETECTED (NONE DETECT); UR CANNABINOIDS QUAL PRESUMPTIVE POSITIVE (NONE DETECT); UR COCAINE QUAL PRESUMPTIVE POSITIVE (NONE DETECT); UR METHADONE QUAL NONE DETECTED (NONE DETECT); UR METHAMPHETAMINE QUAL PRESUMPTIVE POSITIVE (NONE DETECT); UR OPIATES QUAL NONE DETECTED (NONE DETECT); UR OXYCODONE QUAL NONE DETECTED (NONE DETECT); UR PCP QUAL NONE DETECTED (NONE DETECT); UR PROPOXYPHENE QUAL NONE DETECTED (NONE DETECT); UR TCA QUAL NONE DETECTED (NONE DETECT); URINE BACTERIA NEGATIVE /HFP; URINE EPITHELIAL CELLS <10 /HPF (<10); URINE RBC <10 /HPF (<10); URINE SOURCE CLEAN CATCH; URINE WBC <10 /HPF (<10)
--- NOTE | 2019-07-17 19:01 | EKG Report ---
Test Performed on : 07/17/2019 5:48:32 PM Test Reason : SOB Blood Pressure : / mmHG Vent. Rate : 096 BPM Atrial Rate : 096 BPM P-R Int : 140 ms QRS Dur : 092 ms QT Int : 368 ms P-R-T Axes : 082 050 080 degrees QTc Int : 464 ms Normal sinus rhythm. Normal ECG When compared with ECG of 27-JUN-2019 11:32, (Unconfirmed) ST no longer depressed in Inferior leads ST no longer depressed in Anterior leads T wave inversion no longer evident in Inferior leads T wave inversion no longer evident in Lateral leads QT has lengthened Unconfirmed Result
[2019-07-17] MEDS ORDERED: SULFAMETHOXAZOLE IV SCH (19:15)
[2019-07-17] MEDS ORDERED: TRIMETHOPRIM IV SCH (19:15)
[2019-07-17] MEDS ORDERED: LEVAQUIN 750 MG/D5W 750 MG/150 ML IVPB IV SCH (21:15)
[2019-07-17] MEDS ORDERED: SODIUM CHLORIDE 0.9% INJ SCH (21:30)
[2019-07-17] MEDS ORDERED: SOLU-MEDROL IV SCH (21:30)
[2019-07-17 22:32] LABS: IRON SATURATION 14 %; TIBC 142 ug/dL; TOTAL IRON 20 ug/dL (49-151); UNBOUND IRON 122 ug/dL (112-346)
[2019-07-17] MEDS: PROTONIX IV SCH (22:54)
[2019-07-17 23:04] LABS: FERRITIN 647 ng/mL (13-150)
[2019-07-17] MEDS: DUONEB (A & A) INH SCH (23:51)
[2019-07-18] MEDS: D5W IV SCH ×3 (01:27→17:01)
[2019-07-18] MEDS: SEPTRA IV SCH ×3 (01:27→17:01)
[2019-07-18] MEDS: SOLU-MEDROL IV SCH ×3 (03:55→22:27)
[2019-07-18] MEDS: NS + KCL 40 MEQ 1,000 ML IV SCH ×2 (04:09→14:02)
[2019-07-18] MEDS: DUONEB (A & A) INH SCH ×5 (04:26→20:15)
[2019-07-18] MEDS ORDERED: NICODERM PATCH TD PRN (04:40)
--- NOTE | 2019-07-18 05:14 | HISTORY AND PHYSICAL ---
CHIEF COMPLAINT: Oral thrush. HISTORY OF PRESENT ILLNESS: Ms. Etta Ahumada is a 54-year-old female, who has a history of HIV disease, COPD, tobacco use history as well as substance abuse. The patient comes to the hospital because she has noticed oral thrush. She describes some difficulty with swallowing. She also describes having some weight loss. The patient indicates that she has had a severe episode of thrush in the past, and did not want to allow this episode to get worse. As such, that was why she came to the hospital. In addition, she describes having nonproductive cough associated with shortness of breath. No wheezing. No hemoptysis. No fever. She is on home oxygen for her COPD. When she presented to the hospital, she did have a chest x-ray done and this showed evidence of COPD as well as improving bilateral interstitial infiltrates suggesting bronchitis. The patient has now been admitted to the floor for further management. The patient was recently in the hospital once discharged on 07/04/2019. During the last hospital stay, she was managed for atypical pneumonia, chronic hypoxemic respiratory failure as well as esophageal candidiasis. PAST MEDICAL HISTORY: HIV disease/AIDS, depression, and COPD on home oxygen, noncompliance substance abuse, impaired hearing, recent history of atypical pneumonia as well as esophageal candidiasis. PAST SURGICAL HISTORY: She has had a cholecystectomy, appendectomy, and ORIF left arm. SOCIAL HISTORY: She smokes cigarettes. She does have history of substance abuse. Denies [*] and alcohol. FAMILY HISTORY: Noncontributory. ALLERGIES: No known medication allergies. MEDICATIONS: 1. Triumeq daily as directed. 2. Albuterol 2.5 mg inhaler q.4h to 6 hours as needed. 3. Vitamin D 5000 units weekly. 4. Folic Acid 1 mg p.o. daily. 5. Icar C 1 p.o. twice a day. 6. Centrum Silver 1 daily. 7. Protonix 40 mg p.o. twice a day. 8. Phenergan 12.5 mg p.o. every 6 hours. 9. Spiriva inhaler daily. REVIEW OF SYSTEMS: Constitutional: No fevers. She has headaches. Eyes: No blurry vision. Ears, nose, and throat: She has some hearing loss. Cardiovascular: No chest pain. Genitourinary: No dysuria. GI: She does have nausea with diarrhea. No abdominal pains. Musculoskeletal: No joint pains. Dermatology: No skin lesions. Hematology: No bleeding problems. Endocrinology: No thyroid disease or diabetes. PHYSICAL EXAMINATION: VITAL SIGNS: Temperature 98.1 degrees, pulse 120, blood pressure 119/73, and respiratory rate 19. HEENT: She is atraumatic and normocephalic. She is anicteric. Extraocular movements are intact. She does have oral thrush. NECK: No lymphadenopathy or thyromegaly. CARDIOVASCULAR: S1, S2. RESPIRATORY: Evidence of good air entry bilaterally. ABDOMEN: Soft and nontender. No masses felt. EXTREMITIES: No evidence of edema. CENTRAL NERVOUS SYSTEM: No obvious focal deficit noted. LABORATORY: WBC 2.11, hematocrit 29.6, and platelet count of 383,000. INR is 0.91. Sodium is 136, potassium 2.9, chloride 102, bicarb 22, BUN 8, and creatinine 0.7. Serum iron is 20. Lactate 4.1, B12 is 240. UA shows negative WBCs. Urine drug screen positive for amphetamine, methamphetamine, cocaine as well as cannabinoids. X-ray of chest shows evidence of COPD as well as improved bilateral interstitial infiltrates suggesting bronchitis. ASSESSMENT AND PLAN: 1. Probable pneumonia. We will obtain sputum for culture and also Pneumocystis jiroveci. Start patient on empiric antibiotics. We will treat for both bacterial pneumonia and also Pneumocystis. 2. Chronic obstructive pulmonary disease exacerbation. We will maintain patient on nebulized bronchodilators as well as steroids. 3. Oral as well as esophageal candidiasis. Start patient on fluconazole 200 mg p.o. daily. 4. AIDS. Obtain CD4 counts. Consult with Infectious Disease. 5. Abnormal liver function test. Check hepatitis panel as well as abdominal ultrasound. 6. Anemia secondary to iron deficiency as well as B12 deficiency. Replete iron as well as B12. 7. Tobacco use history. Recommend nicotine patch. 8. Polysubstance abuse. Aware. The patient is advised with regards to abstinence. 9. Severe protein calorie malnutrition. Recommend nutritional supplements as well as dietary consult. 10. Impaired hearing. Follow up with ENT post discharge. 11. Deep vein thrombosis prophylaxis. Sequential compression devices. 12. Gastrointestinal prophylaxis. Proton pump inhibitor. cc: Abram Bolanos MD
[2019-07-18 05:38] LABS: ALLEN TEST YES; BE -3.9 mmoll (-3.0-3.0); BLOOD TYPE ARTERIAL; HCO3-(ACT) 21.9 mmoll (20.0-26.0); METHB 1.1 % (0.0-1.5); O2(CT) 10.7 mL/dL (15.0-23.0); O2HB 96.3 % (95.0-99.0); PCO2(98.6) 28 mmHg (35-45); PO2(98.6) 113 mmHg (60-100); SAMPLE BLOOD; SAO2 98.5 % (95.0-100.0); THB 7.7 g/dL (11.5-17.4); pH(98.6) 7.45 (7.35-7.45)
[2019-07-18 05:40] LABS: MODALITY CANNULA
[2019-07-18 08:33] LABS: MAGNESIUM 1.8 mg/dL (1.5-2.7)
[2019-07-18] MEDS ORDERED: CYANOCOBALAMIN IM SCH (09:00)
[2019-07-18] MEDS ORDERED: DIFLUCAN PO SCH (09:00)
[2019-07-18] MEDS: ICAR-C PO SCH ×2 (10:36→22:27)
[2019-07-18] MEDS ORDERED: LEVAQUIN 500 MG/D5W 500 MG/100 ML IVPB IV SCH (11:45)
[2019-07-18] MEDS ORDERED: MISC. PHARMACY COMMUNICATION SCH (11:45)
[2019-07-18] MEDS ORDERED: ZITHROMAX PO SCH (12:45)
[2019-07-18] MEDS ORDERED: ZITHROMAX LIQUID PO SCH (13:15)
--- NOTE | 2019-07-18 13:28 | PROGRESS NOTE ---
DATE: 07/18/2019 SUBJECTIVE: This morning Ms. Ahumada refers to be doing a little better. Still has some pains in her mouth when chewing but she was taking her lunch at the time of the encounter. OBJECTIVE: Vital signs: Blood pressure is 128/67, pulse of 100, respirations 21, temperature is 97.4 degrees. The patient was saturating 100%. General: Ms. Ahumada is a 54-year-old female. She was in bed. She looks remarkably malnourished and chronically ill with a BMI of 14.5. HEENT: Mucosa is pink and moist. Anicteric. Acyanotic. Mouth has very poor dentition and multiple white plaques in the mouth, on the tongue and on the palate. Neck: Supple. Chest: Air entry was bilaterally reduced but I did not hear any crackles or wheezing. Cardiovascular: Regular rate and rhythm. No murmurs, no rubs, no gallops. Gastrointestinal: Abdomen was soft. Extremities: No pedal edema. Central nervous system: Patient was awake, alert, and oriented. LABORATORY DATA: Has been reviewed. The patient is remarkably leukopenic. Potassium is 2.9. Rest of the chemistry is unremarkable. Urinalysis is positive for amphetamine, methamphetamine, cocaine, cannabinoids. The absolute CD4 count is 4 ASSESSMENT: 1. Odynophagia secondary to severe oral and possible oropharyngoesophageal candidiasis. The patient is currently on antifungal medications and she is also getting the mouthwash. 2. History of chronic obstructive pulmonary disease with exacerbation on presentation. Seems to be improving. We will continue with the current medications. 3. Severe immunosuppression with absolute CD4 count of 4 due to acquired immunodeficiency syndrome. The patient is not on any HAART medications prior to admission due to non compliance. ID has been consulted. For now, she will surely need prophylaxis for PJP and prophylaxis for MAC. I have added azithromycin 1200 every week for MAC prophylaxis. 4. Polysubstance abuse with recreational drugs. Urine toxicology is positive for amphetamine, methamphetamine, cocaine, cannabinoids. Patient has been counseled. 5. Lactic acidosis on presentation, most likely due to dehydration. Patient is getting IV fluids. cc: Wesley Fernandez MD [facility] CENTERShannon
[2019-07-18] MEDS: MYCOSTATIN SUSP PO SCH ×3 (14:02→22:27)
[2019-07-18] MEDS: NON-FORMULARY MED PO SCH (14:03)
[2019-07-18] MEDS: MYCAMINE 100 MG in NS 100 ML IV SCH (14:03)
--- NOTE | 2019-07-18 14:09 | Diag Imaging Result Doc PS360 ---
US ABDOMEN-COMPLETE - 07/18/2019 INDICATION: abnormal lfts COMPARISON: CT from 06/27/2019 FINDINGS: There is been previous cholecystectomy. The liver, pancreas, spleen, and both kidneys are normal. Common bile duct measures 4 mm. Aorta, IVC, and main portal vein are patent. IMPRESSION: Negative exam. Electronically signed by Smith Bryan 07/18/2019 2:06 PM
--- NOTE | 2019-07-18 14:28 | INFECTIOUS DISEASE PROGRESS NO ---
DATE: 07/18/2019 PRESENT ILLNESS: Ms. Cordoba was recently discharged from the hospital and is now back in for oral and esophageal thrush with dysphagia. She does have a history of HIV with noncompliance to her medical regimen. PHYSICAL EXAMINATION: Vital Signs: Temperature is 97.9 degrees, pulse rate 98, respiratory rate 14, blood pressure 128/83, O2 saturations 96% on 2 L nasal cannula. General: This is a cachectic, chronically ill-appearing, middle-aged female. She is lying in bed, currently in no acute distress. HEENT: Atraumatic, normocephalic. Oral mucous membranes are covered with white patches throughout the tongue and oral vestibule. Conjunctivae are pale. Neck: Supple. Trachea is midline. Cardiovascular: Heart rate and rhythm are regular. Normal sinus rhythm on the monitor. Respiratory: Lung sounds are clear to auscultation bilaterally. Diminished in the bases. No work of breathing is noted. Abdomen: Soft, flat, and nontender. Bowel sounds are active. Neurologic: She is drowsy and lethargic but arousable and appropriate. Able to move all extremities in the bed with generalized weakness. LABORATORY AND X-RAY: Her white count is 2.11, hemoglobin 9.5, platelet count 383,000. Blood gas on 1 L nasal cannula showed a pH of 7.45, pCO2 28. PO2 113, HCO3 21.9. Her creatinine is 0.7, estimated GFR greater than 60. Creatine kinase is 42. Total bilirubin 0.20, AST 37, ALT 20, alkaline phosphatase 137. Her CD4/CD8 count ratio shows an absolute CD4 of 4 with a ratio of 0. Chest x-ray shows improving bilateral interstitial infiltrates suggesting bronchitis with no new infiltrates. ASSESSMENT AND PLAN: Ms. Cordoba is an HIV patient who is supposed to be treated at the [facility] and should be taking Triumeq as well as fluconazole from her last admission. When asked if she takes her medication she says she does not remember, and that she takes whatever her gives her. She is receiving IV Bactrim, which we agree with. We also agree with continuing IV Levaquin but will decrease the dosage from 750 to 500 mg IV daily. We will stop the oral fluconazole and start her on micafungin 100 mg IV daily as well as nystatin swish and swallow 4 times a day. We have also put in for the pharmacy to start her back on her Triumeq once a day. She is on precautions for an immunocompromised patient with an absolute neutrophil count of less than 1000. Blood cultures have been drawn and are pending so we will follow those. These plans have been discussed with and recommended by Dr. Adams. COMORBIDITIES: For the patient include medical noncompliance with HIV, tobacco and substance abuse, COPD with home oxygen, and depression. Dictated by MADHAVI Owens for Chao Adams MD cc: MD Wesley Otto MD MTDD
[2019-07-18] MEDS: PROTONIX IV SCH (22:27)
[2019-07-18] MEDS: LEVAQUIN 500 MG/D5W 500 MG/100 ML IVPB IV SCH (22:28)
[2019-07-19] MEDS: D5W IV SCH ×4 (00:13→23:00)
[2019-07-19] MEDS: SEPTRA IV SCH ×4 (00:13→23:00)
[2019-07-19] MEDS: DUONEB (A & A) INH SCH ×6 (03:04→18:46)
[2019-07-19] MEDS: NS + KCL 40 MEQ 1,000 ML IV SCH ×2 (04:27→05:10)
[2019-07-19] MEDS: SOLU-MEDROL IV SCH ×3 (05:10→21:38)
--- NOTE | 2019-07-19 08:11 | PROGRESS NOTE ---
DATE: 07/19/2019 SUBJECTIVE: This morning, Ms. Cordoba refers to be doing fairly okay. No new complaints. She refers that the throat is still kind of sore, but she is able to swallow a little better. OBJECTIVE: Vital signs: Blood pressure is 115/75, pulse of 90, respirations 16, temperature is 97.4 degrees. General: Ms. Cordoba is a 54-year-old female. She was in bed, no distress. HEENT: Mucosa is pink and moist. Anicteric. Acyanotic. She looks chronically ill and malnourished. The patient, in the mouth, has a very poor dentition and multiple white plaques both on the tongue and on the palate. Neck: Supple. Chest: Air entry was bilaterally reduced. There were some faint end expiratory wheezing. Cardiovascular: Regular rate and rhythm. No murmurs, no rubs, no gallops. Gastrointestinal: Abdomen is soft, nontender. Bowel sounds present. Central nervous system: Patient is awake, alert, and oriented. LABORATORY DATA: No current lab work at the time of the dictation. MEDICATIONS: Have all been reviewed. The patient has been started back on anti- retroviral. ASSESSMENT: 1. Odynophagia secondary to severe oropharyngoesophageal candidiasis. The patient is currently on antifungal therapy. She seems to be doing better. 2. History of severe chronic obstructive pulmonary disease with mild exacerbation. Patient is on standard of care. 3. Severe acquired immunodeficiency syndrome with CD4 count of 4. The patient has been started back on HAART medications. She seems to be noncompliant. 4. Polysubstance abuse with recreational drug use. Urine toxicology was positive for amphetamine, methamphetamine, cocaine and cannabinoids. Patient has been counseled. 5. Lactic acidosis. The patient is on adequate hydration. We are pending the repeat test. cc: Wesley Fernandez MD [facility]ENTERShannon
[2019-07-19 08:19] LABS: EOS# 0.01 X1000 (0.0-0.7); EOS% 0.5 % (0.0-10.0); HEMATOCRIT 26.3 % (37.0-47.0); HEMOGLOBIN 7.9 g/dL (12.0-16.0); IMM GRAN# 0.02 X1000 (0.0-0.04); LYMPH# 0.27 X1000 (1.2-3.4); LYMPH% 13.7 % (20.5-51.1); MCH 29.9 PG (27-31); MCV 99.6 FL (81-99); MONO# 0.25 X1000 (0.11-0.59); MONO% 12.7 % (1.7-9.3); MPV 8.2 FL (7.4-10.4); NEUT# 1.42 X1000 (1.4-6.5); NEUT% 72.1 % (42.2-75.2); PLT 316 X1000 (130-400); RBC 2.64 XMIL (4.2-5.4); RDW 19.2 % (11.5-14.5); WBC 1.97 X1000 (4.8-10.8)
[2019-07-19 08:32] LABS: AGAP 13; ALBUMIN 2.6 g/dL (3.5-5.0); BUN 9 mg/dL (8-22); CALCIUM 7.9 mg/dL (8.8-10.2); CHLORIDE 114 mmol/L (98-107); COSMO 284; CREATININE 0.5 mg/dL (0.5-0.9); ESTIMATED GFR > 60; GLUCOSE 140 mg/dL (70-104); PHOSPHORUS 2.5 mg/dL (2.7-4.5); POTASSIUM 4.6 mmol/L (3.5-5.1); SODIUM 142 mmol/L (136-145); TCO2 15 mmol/L (25-35)
[2019-07-19 08:55] LABS: EOS 2 % (1-10); LYMPHS 14 % (21-51); MONO 10 % (1-9); SEGS 72 % (42-75)
[2019-07-19] MEDS: MYCOSTATIN SUSP PO SCH ×4 (09:15→21:39)
[2019-07-19] MEDS: ICAR-C PO SCH ×2 (09:15→21:39)
[2019-07-19] MEDS: NON-FORMULARY MED PO SCH (09:15)
[2019-07-19] MEDS: D5 1/2 NS + KCL 20 MEQ 1,000 ML IV SCH ×2 (12:25→21:40)
[2019-07-19 14:10] LABS: HEPATITIS PROFILE ACUTE SEE COMMENTS
[2019-07-19] MEDS: NEUTRA-PHOS PO SCH ×3 (14:31→21:39)
[2019-07-19] MEDS: MYCAMINE 100 MG in NS 100 ML IV SCH (14:31)
[2019-07-19] MEDS: PROTONIX IV SCH (21:39)
[2019-07-19] MEDS: LEVAQUIN 500 MG/D5W 500 MG/100 ML IVPB IV SCH (21:39)
[2019-07-20] MEDS: SOLU-MEDROL IV SCH ×3 (04:48→21:50)
[2019-07-20] MEDS: DUONEB (A & A) INH SCH ×7 (05:24→23:45)
[2019-07-20] MEDS: D5W IV SCH ×3 (06:36→23:18)
[2019-07-20] MEDS: SEPTRA IV SCH ×3 (06:36→23:18)
[2019-07-20] MEDS: D5 1/2 NS + KCL 20 MEQ 1,000 ML IV SCH ×2 (06:45→10:26)
[2019-07-20 08:08] LABS: HEMATOCRIT 27.6 % (37.0-47.0); HEMOGLOBIN 8.2 g/dL (12.0-16.0); MCH 28.7 PG (27-31); MCHC 29.7 g/dL (33-37); MCV 96.5 FL (81-99); MPV 8.3 FL (7.4-10.4); RBC 2.86 XMIL (4.2-5.4); RDW 19.4 % (11.5-14.5); WBC 1.94 X1000 (4.8-10.8)
[2019-07-20 08:18] LABS: AGAP 10; BUN 11 mg/dL (8-22); CALCIUM 8.5 mg/dL (8.8-10.2); CHLORIDE 111 mmol/L (98-107); COSMO 280; CREATININE 0.6 mg/dL (0.5-0.9); ESTIMATED GFR > 60; GLUCOSE 126 mg/dL (70-104); POTASSIUM 4.7 mmol/L (3.5-5.1); SODIUM 140 mmol/L (136-145); TCO2 19 mmol/L (25-35)
[2019-07-20] MEDS: MYCOSTATIN SUSP PO SCH ×4 (10:24→21:48)
[2019-07-20] MEDS: NEUTRA-PHOS PO SCH ×4 (10:24→21:52)
[2019-07-20] MEDS: NON-FORMULARY MED PO SCH (10:25)
[2019-07-20] MEDS: ICAR-C PO SCH ×2 (10:25→21:53)
--- NOTE | 2019-07-20 14:08 | PROGRESS NOTE ---
DATE: 07/20/2019 SUBJECTIVE: This morning, Ms. Ahumada refers to be doing well. Denies any new complaints. Her throat is feeling much better. She has been consuming anywhere between 75% to 100% of her meals. OBJECTIVE: Vital Signs: Blood pressure is 156/92, pulse of 81, respirations 18, temperature 98.5 degrees. General: Ms. Ahumada is a 54-year-old female. She is in bed. No distress. HEENT: Mucosa is pink and moist. Anicteric. Acyanotic. The mouth still has multiple white plaques on the trunk and on the palate. However, this seems to be getting better. Neck: Supple. Chest: Air entry was bilaterally reduced, but there was no wheezing today. Cardiovascular: Regular rate and rhythm. GI: Abdomen was soft, nontender. 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 There is no focal neurological deficit. LABORATORY DATA: WBC is 1.94, hemoglobin is 82, platelet count of 213,000. Chemistry is also reviewed. Bicarb is 19 from 15 yesterday. So far, blood cultures have been 48 hours negative. ASSESSMENT: 1. Odynophagia on presentation secondary to severe oropharyngoesophageal candidiasis. The patient is currently on antifungal therapy. She seems to be doing well. 2. History of severe chronic obstructive pulmonary disease with mild exacerbation on presentation, improving. 3. Severe acquired immune deficiency syndrome with CD4 count of 4. The patient has been started back on HAART. She has been counseled on medication compliance. 4. Polysubstance use and abuse. The patient's urine toxicology was positive for amphetamine, methamphetamine, cocaine, cannabinoids. 5. Lactic acidosis, improving. In general, I think Ms. Ahumada is doing a lot better. The dysphagia is getting better control. She seems to be tolerating her diet. We are going to continue with the current therapy for another day. Hopefully by tomorrow, we will safely be able to discharge her pending final recommendations from Infectious Disease. cc: Wesley Fernandez MD
[2019-07-20] MEDS: MYCAMINE 100 MG in NS 100 ML IV SCH (15:04)
[2019-07-20] MEDS: PROTONIX IV SCH (21:48)
[2019-07-20] MEDS: LEVAQUIN 500 MG/D5W 500 MG/100 ML IVPB IV SCH (22:00)
[2019-07-21] MEDS: SOLU-MEDROL IV SCH (02:32)
[2019-07-21] MEDS: DUONEB (A & A) INH SCH ×2 (05:35→09:06)
--- NOTE | 2019-07-21 06:08 | Diag Imaging Result Doc PS360 ---
EXAM: CHEST-PORTABLE HISTORY: dyspnea TECHNIQUE: Single view COMPARISON: 07/17/2019 FINDINGS: The lungs are hyperexpanded. The heart is not enlarged. The vessels are not distended. There are mild increased interstitial markings. No consolidation. No effusion identified. IMPRESSION: Mild interval worsening. Electronically signed by Eliel Plunkett 07/21/2019 6:06 AM
[2019-07-21] MEDS: D5W IV SCH (07:16)
[2019-07-21] MEDS: SEPTRA IV SCH (07:16)
[2019-07-21 07:53] LABS: AGAP 13; ALB/GLOB RATIO 0.9; ALBUMIN 2.6 g/dL (3.5-5.0); ALKALINE PHOSPHATASE 103 U/L (32-104); BUN 11 mg/dL (8-22); CALCIUM 8.2 mg/dL (8.8-10.2); CHLORIDE 108 mmol/L (98-107); COSMO 277; CREATININE 0.7 mg/dL (0.5-0.9); ESTIMATED GFR > 60; GLUCOSE 95 mg/dL (70-104); GOT 70 U/L (10-30); GPT 47 U/L (10-36); HEMATOCRIT 29.6 % (37.0-47.0); HEMOGLOBIN 9.1 g/dL (12.0-16.0); IMM GRAN# 0.15 X1000 (0.0-0.04); IMM GRAN% 5.6 % (0.0-0.5); LYMPH# 0.26 X1000 (1.2-3.4); LYMPH% 9.8 % (20.5-51.1); MCH 29.4 PG (27-31); MCHC 30.7 g/dL (33-37); MCV 95.5 FL (81-99); MONO# 0.51 X1000 (0.11-0.59); MONO% 19.2 % (1.7-9.3); MPV 8.3 FL (7.4-10.4); NEUT# 1.74 X1000 (1.4-6.5); NEUT% 65.4 % (42.2-75.2); PLT 372 X1000 (130-400); POTASSIUM 4.5 mmol/L (3.5-5.1); SODIUM 139 mmol/L (136-145); TCO2 18 mmol/L (25-35); TOTAL BILIRUBIN < 0.15 mg/dL (0.20-1.00); TOTAL PROTEIN 5.6 g/dL (6.3-8.3); WBC 2.66 X1000 (4.8-10.8)
[2019-07-21] MEDS: NEUTRA-PHOS PO SCH (08:48)
[2019-07-21] MEDS: MYCOSTATIN SUSP PO SCH (08:48)
[2019-07-21] MEDS: ICAR-C PO SCH (08:50)
[2019-07-21] MEDS: NON-FORMULARY MED PO SCH (08:51)
[2019-07-21 11:40] VITALS: BP 131/80
--- NOTE | 2019-07-21 14:00 | INFECTIOUS DISEASE PROGRESS NO ---
DATE: 07/21/2019 Ms. Ahumada is doing much better and the plan is to send her home today. She has been treated for HIV medical regimen noncompliance as well as an oral and esophageal thrush with dysphagia. She had a noted absolute CD4 count of 4. We will send her home with Levaquin 500 mg by mouth daily, fluconazole 200 mg by mouth daily, Bactrim 1 by mouth every 12 hours and Nystatin swish and swallow 4 times a day, all for a total of 10 days each. These have been sent electronically to her pharmacy. The patient should also be resuming her Triumeq to be taken at home daily, and needs to follow up with the [facility] in [place] as soon as possible. These plans have been discussed with and recommended by Dr. Adams. Dictated by MADHAVI Owens for Chao Adams MD cc: MD Wesley Otto MD [facility]OSPITALShannon
[2019-07-21] MEDS ORDERED: PROTONIX PO SCH (21:00)
--- NOTE | 2019-07-22 12:19 | DISCHARGE SUMMARY ---
ADMISSION DATE: 07/17/2019 DISCHARGE DATE: 07/21/2019 DISPOSITION: Home. FOLLOW-UP: 1. Dr. Adams. 2. [facility] [place]. CONSULTATION DURING THIS ADMISSION: ID was consulted. Patient was seen by Dr. Adams. INVASIVE PROCEDURES DONE DURING THIS ADMISSION: None. IMAGING STUDIES OF SIGNIFICANCE: 1. A chest x-ray was done on 07/17/2019 which showed COPD, improving bilateral interstitial infiltrate suggesting bronchitis. Ultrasound of the abdomen was negative. 2. A repeat chest x-ray today showed mild increase in interval markings. ADMISSION DIAGNOSIS: 1. Probable pneumonia. 2. COPD. 3. Oroesophageal candidiasis. 4. Polysubstance abuse. DIAGNOSIS AT THE TIME OF DISCHARGE: 1. Odynophagia on presentation secondary to severe oropharyngoesophageal candidiasis. 2. Severe COPD with mild exacerbation on presentation. 3. Severe AIDS with absolute CD4 count of 4. 4. Polysubstance use and abuse with urine toxicology. Urine toxicology was positive for amphetamine, methamphetamine, cocaine, and cannabinoids. 5. Lactic acidosis on presentation, resolved. DISCHARGE MEDICATIONS: 1. Spiriva inhaler 2 puffs daily. 2. Phenergan p.r.n. 3. Nicotine patch. 4. Bactrim double strength 1 tablet q. 12 for 10 days. 5. Fluconazole 200 mg p.o. daily. 6. Levaquin 500 p.o. daily. 7. Nystatin 5 mL p.o. 4 times per day. 8. Azithromycin 1000 mg p.o. q. 7 days. 9. Iron. PRESENTING COMPLAIN: Oral thrush. HISTORY OF PRESENTING COMPLAINT: Ms. Cordoba is a 54-year-old female with a history of HIV/AIDS who has been off and on on medications, not very compliant, came into the emergency department because of severe pain on swallowing. Upon presentation, she was evaluated, was found on physical exam to have multiple severe oral thrush. She was admitted to the medical floor for further management. HOSPITAL COURSE: Ms. Cordoba was admitted to the medical floor. She was started on IV micafungin and oral nystatin mouthwash and swallow. She was also started on IV antibiotics for possible PJP pneumonia. She had changes of severe COPD and she was also in acute exacerbation. Throughout the hospital course, Ms. Cordoba did improve remarkably well. She started eating well. Before discharge, she was eating 100% of all her meals. Today she refers to be doing a whole lot better. She has been evaluated by ID. She has been counseled very much on medication compliance and follow-up appointments within the HIV clinic. We have also stressed the utmost need for tobacco cessation and recreational drug use cessation. All the discharge instructions have been discussed with Ms. Cordoba and she voiced understanding. Time spent for discharge is 38 minutes. cc: MD Chao North MD MTDD
== END 2019-07-21 12:53 | disposition home or self-care (01) | DRG 974 ==
LOC: P.ED 16:42 → SUATTDRO 19:40 → 3N 19:40
PROVIDERS: ADMIT Internal Medicine; ATTEND Internal Medicine

== ENCOUNTER 2019-07-30 06:26 | Inpatient (IN) ==
--- NOTE | 2019-07-30 07:12 | PROVIDER DOCUMENTATION ---
HPI-General Adult - General Chief Complaint: Shortness of Breath Stated Complaint: SOB Time Seen by Provider: 07/30/19 07:02 Source: patient, family Allergies/Adverse Reactions: Patient Allergies Allergy/AdvReac Type Severity Reaction Status Date / Time No Known Allergies Allergy Verified 07/23/19 01:23 Home Medications: Home Medication List Medication Instructions Recorded Confirmed Last Taken Type Albuterol [Albuterol Neb] 2.5 mg INH Q4-6H PRN PRN 02/17/19 07/30/19 07/22/19 History Tiotropium [place] Inhaler 2 puff INH RTDAILY 02/17/19 07/30/19 07/22/19 History [Spiriva] Promethazine [Phenergan] 12.5 mg PO Q6H PRN PRN #10 tab 07/04/19 07/30/19 07/22/19 Rx Fluconazole 200 mg PO DAILY 10 Days #10 tab 07/21/19 07/30/19 07/22/19 Rx - History of Present Illness -Gen Adult Nature of Presenting Problems: Patient complains of worsening shortness of breath and difficulty swallowing. Patient has a history of COPD and HIV. Was recently hospitalized here. Her reports that she has been compliant with her medications, but that her thrush seems to be returning, she's had fever, she's been very weak and had periods of deliriousness. These symptoms have been getting worse over the past several days. Review of Systems - Adult - REVIEW OF SYSTEMS - ADULT Constitutional: reports: see HPI Eyes: reports: no symptoms reported Ears, Nose, Mouth & Throat: reports: see HPI Cardiovascular: reports: no symptoms reported Respiratory: reports: see HPI Gastrointestinal: reports: no symptoms reported Genitourinary: reports: no symptoms reported Musculoskeletal: reports: no symptoms reported Integumentary: reports: no symptoms reported Neurological: reports: no symptoms reported Psychiatric: reports: see HPI Endocrine: reports: no symptoms reported Hematologic/Lymphatic: reports: no symptoms reported Allergic/Immunologic: reports: no symptoms reported All Other Systems: Reviewed and Negative Past History - Adult - PAST MEDICAL HISTORY-ADULT Review of Records: reports: Nursing Assessment Review Major Childhood Illnesses: reports: other (HIV since 1989) Cardiovascular: reports: denies history Respiratory: reports: asthma, COPD, pneumonia Gastrointestinal: reports: denies history Obstetrical/Gynecological: reports: denies history Genitourinary: reports: denies history Musculoskeletal: reports: denies history Neurological: reports: denies history Psychiatric: reports: anxiety Endocrine/Immune: reports: HIV/AIDS Other Conditions: reports: denies history - PRIOR SURGERIES/PROCEDURES Surgical/Procedure History: reports: appendectomy, cholecystectomy, orthopedic (extremity) (plates in the left arm) - IMMUNIZATION STATUS Childhood Immunizations: See Nurse Assessment Flu Vaccine: See Nurse Assessment - FAMILY HISTORY Family History: reviewed, not pertinent Physical Exam-General - PHYSICAL EXAM-ADULT Initial Vital Signs Reviewed: Yes - CONSTITUTIONAL General Appearance: moderate distress, cachetic - EYES Eyes: PERRL/EOMI, pink conjunctivae - HEAD, EARS, NOSE, MOUTH & THROAT HENMT: normocephalic/atraumatic, other (thrush) - NECK Neck: non-tender, full range of motion - RESPIRATORY Respiratory: chest non-tender, lungs clear - CARDIOVASCULAR Cardiovascular: normal peripheral pulses, no edema, tachycardia. negative: irregularly irregular - GASTROINTESTINAL (ABDOMEN) Abdominal Exam: non tender, soft, no organomegaly - MUSCULOSKELETAL Back Exam: normal inspection. 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 Adams (ID) , who knows the patient well. He recommended starting PO Bactrim q8hrs and stop the Levaquin. d/w hm with plan for admission Result Diagrams: 07/30/19 10:55 - EKG 1 Time of EKG reading by physician:: 07:45 EKG Read and Signed by:: Manpreet Adams (sinus tach 112, no ectopy) - XRAY 1 XRAY Study: Chest (patchy infiltrates) Impression: Abnormal Comparison with other Films: changes noted Departure - Departure Date of Disposition Decision: 07/30/19 Time of Disposition Decision: 12:51 DIAGNOSIS: Atypical pneumonia, AIDS, Thrush, oral Leukopenia Qualifiers: Leukopenia type: unspecified Qualified Code(s): D72.819 - Decreased white blood cell count, unspecified Disposition: ADMITTED INPATIENT 09 Certified Medical Emergency: Emergent Condition: Serious Referrals and Follow-Ups: None,PCP [Primary Care Provider] - - Critical Care Note This patient required my direct & personal management of CC.: Yes Attestation - Physician/ HAIR Attestation Patient care was provided by Advanced Practice Provider:: No The physician spent face to face time with patient:: Yes Advanced Practice Provider documentation review:: Supervising physician onsite and consulted in the evaluation and care of this patient. The physician did have a face to face encounter with the patient.
--- NOTE | 2019-07-30 07:31 | EKG Report ---
Test Performed on : 07/30/2019 06:34:56 AM Test Reason : sob Blood Pressure : / mmHG Vent. Rate : 112 BPM Atrial Rate : 112 BPM P-R Int : 164 ms QRS Dur : 076 ms QT Int : 376 ms P-R-T Axes : 066 064 087 degrees QTc Int : 513 ms Sinus tachycardia. Right atrial enlargement ST & T wave abnormality, consider lateral ischemia Abnormal ECG When compared with ECG of 17-JUL-2019 17:48, (Unconfirmed) T wave inversion now evident in Inferior leads Unconfirmed Result
[2019-07-30] MEDS ORDERED: DUONEB (A & A) ONE (07:38)
--- NOTE | 2019-07-30 07:39 | Diag Imaging Result Doc PS360 ---
EXAM: CHEST-PORTABLE HISTORY: dyspn TECHNIQUE: Two views COMPARISON: 07/21/2019 FINDINGS: The lungs are hyperexpanded. No cardiomegaly. There are increased interstitial markings in the mid and lower lungs which are more prominent than on the prior study. Tiny left pleural effusion. IMPRESSION: Interval development of patchy infiltrates. Electronically signed by Eliel Plunkett 07/30/2019 7:36 AM
[2019-07-30 07:41] LABS: ALLEN TEST YES; BE 0.8 mmoll (-3.0-3.0); BLOOD TYPE ARTERIAL; HCO3-(ACT) 25.5 mmoll (20.0-26.0); METHB 0.7 % (0.0-1.5); O2(CT) 16.1 mL/dL (15.0-23.0); O2HB 95.3 % (95.0-99.0); PCO2(98.6) 32 mmHg (35-45); PO2(98.6) 80 mmHg (60-100); SAMPLE BLOOD; pH(98.6) 7.48 (7.35-7.45)
[2019-07-30 07:42] LABS: MODALITY CANNULA
[2019-07-30] MEDS: ZOSYN 3.375 GM in NS 50 ML IV ONE ×2 (07:43→11:39)
[2019-07-30] MEDS: VANCOMYCIN 1 GM/NS 1 GM/250 ML IVPB IV ONE ×2 (07:43→11:39)
[2019-07-30] MEDS ORDERED: LEVAQUIN 750 MG/D5W 750 MG/150 ML IVPB IV ONE (07:43)
[2019-07-30] MEDS ORDERED: SEPTRA DS PO ONE (08:35)
--- NOTE | 2019-07-30 08:51 | Diag Imaging Result Doc PS360 ---
EXAM: CT HEAD W/O CONTRAST INDICATION: ams TECHNIQUE: This exam was performed using automated exposure control, adjustment of mA or kV according to patient size, and/or use of iterative reconstruction technique. COMPARISON: None. FINDINGS: There is patchy low attenuation in the periventricular and subcortical white matter suggesting moderate microangiopathy. There is no definite acute infarct given the limited sensitivity of CT versus MRI. There is no discrete intracranial mass, mass effect, or intracranial hemorrhage. There is moderate to advanced maxillary sinus mucosal disease and milder ethmoid sinus mucosal disease. There are bilateral mastoid air cell effusions. Surrounding soft tissues and bony structures are essentially unremarkable, otherwise. IMPRESSION: 1.Chronic appearing white matter changes as described. No definite acute intracranial pathology. 2.Bilateral mastoid air cell effusions and maxillary and ethmoid sinus mucosal disease. Electronically signed by Audie Cardozo 07/30/2019 8:49 AM
[2019-07-30] MEDS ORDERED: NS 250 ML ONE (09:29)
[2019-07-30 11:21] LABS: INR 1.06; PROTIME 13.9 Seconds (11.0-16.0)
[2019-07-30 11:31] LABS: BASO# 0.01 X1000 (0.0-0.2); BASO% 0.5 % (0.0-0.8); EOS# 0.01 X1000 (0.0-0.7); EOS% 0.5 % (0.0-10.0); HEMATOCRIT 31.9 % (37.0-47.0); HEMOGLOBIN 10.4 g/dL (12.0-16.0); LYMPH# 0.31 X1000 (1.2-3.4); MCHC 32.6 g/dL (33-37); MCV 91.9 FL (81-99); MONO# 0.55 X1000 (0.11-0.59); MONO% 30.2 % (1.7-9.3); MPV 9.6 FL (7.4-10.4); NEUT# 0.94 X1000 (1.4-6.5); NEUT% 51.8 % (42.2-75.2); PLT 220 X1000 (130-400); RBC 3.47 XMIL (4.2-5.4); WBC 1.82 X1000 (4.8-10.8)
[2019-07-30] MEDS ORDERED: NORCO-5 PO ONE (11:49)
[2019-07-30 11:54] LABS: URINE SOURCE CLEAN CATCH
[2019-07-30 11:59] LABS: BILIRUBIN URINE NEGATIVE (NEGATIVE); BLOOD URINE NEGATIVE (NEGATIVE); COLOR YELLOW; GLUCOSE URINE NEGATIVE (NEGATIVE); KETONE URINE NEGATIVE (NEGATIVE); LEUKOCYTES URINE NEGATIVE (NEGATIVE); NITRITE URINE NEGATIVE (NEGATIVE); PROTEIN URINE 50 mg/dL (NEGATIVE); SP GRAVITY URINE 1.024; TURBIDITY URINE HAZY (CLEAR); UROBILINOGEN URINE 2 mg/dL (NORMAL)
[2019-07-30 12:08] LABS: UR EPITHELIAL CELLS >10 /HPF (<10); URINE BACTERIA NEGATIVE /HPF; URINE RBC <10 /HPF (<10); URINE WBC <10 /HPF (<10)
[2019-07-30 12:15] LABS: URINE CRYSTALS NONE SEEN
[2019-07-30 12:31] LABS: UR BARBITUATES QUAL NONE DETECTED (NONE DETECT); UR BENZODIAZEPIN QUAL NONE DETECTED (NONE DETECT); UR CANNABINOIDS QUAL NONE DETECTED (NONE DETECT); UR COCAINE QUAL NONE DETECTED (NONE DETECT); UR METHADONE QUAL NONE DETECTED (NONE DETECT); UR OPIATES QUAL NONE DETECTED (NONE DETECT); UR OXYCODONE QUAL NONE DETECTED (NONE DETECT); UR PCP QUAL NONE DETECTED (NONE DETECT)
[2019-07-30 12:41] LABS: UR AMPHETAMINES QUAL NONE DETECTED (NONE DETECT)
[2019-07-30 13:50] LABS: AGAP 17; ALB/GLOB RATIO 1.1; ALBUMIN 3.6 g/dL (3.5-5.0); ALKALINE PHOSPHATASE 98 U/L (32-104); BUN 19 mg/dL (8-22); CALCIUM 8.8 mg/dL (8.8-10.2); CHLORIDE 100 mmol/L (98-107); COSMO 277; CREATININE 0.6 mg/dL (0.5-0.9); ESTIMATED GFR > 60; GLUCOSE 87 mg/dL (70-104); GOT 17 U/L (10-30); GPT 13 U/L (10-36); POTASSIUM 3.2 mmol/L (3.5-5.1); SODIUM 138 mmol/L (136-145); TCO2 21 mmol/L (25-35); TOTAL BILIRUBIN 0.74 mg/dL (0.20-1.00); TOTAL PROTEIN 6.9 g/dL (6.3-8.3)
[2019-07-30] MEDS ORDERED: DUONEB (A & A) INH PRN (14:48)
[2019-07-30] MEDS ORDERED: PROTONIX IV SCH (14:54)
[2019-07-30] MEDS ORDERED: SODIUM CHLORIDE 0.9% INJ SCH (14:54)
[2019-07-30] MEDS ORDERED: VANCOMYCIN IV PER PHARMACY MISC SCH (14:54)
[2019-07-30] MEDS ORDERED: MYCOSTATIN SUSP PO SCH ×2 (14:54→17:00)
[2019-07-30] MEDS: SEPTRA DS PO SCH ×2 (15:09→23:12)
[2019-07-30] MEDS: DUONEB (A & A) INH SCH ×3 (15:11→23:47)
[2019-07-30] MEDS ORDERED: NS 1,000 ML IV SCH (15:15)
[2019-07-30] MEDS: MAXIPIME 1 GM in NS 50 ML IV SCH ×2 (15:25→21:28)
[2019-07-30] MEDS: DIFLUCAN PO SCH (15:25)
[2019-07-30] MEDS ORDERED: PNEUMOVAX 23 IM ONE (15:56)
[2019-07-30] MEDS ORDERED: FLU VACCINE IM ONE (15:56)
[2019-07-30] MEDS: NS 1,000 ML IV SCH ×2 (17:48→21:01)
--- NOTE | 2019-07-30 19:51 | HISTORY AND PHYSICAL ---
PRIMARY CARE PROVIDER: None. CHIEF COMPLAINT: Sore mouth and cough. HISTORY OF PRESENT ILLNESS: Ms. Cordoba is a 54-year-old female well known to our service for HIV/AIDS; COPD, on home O2; tobacco use as well as substance abuse. She came to the ED secondary to continued mouth pain and cough as well as some chills. Workup in the ED revealed a white count of 1. Chest x-ray suggests infiltrate. They had a hard time getting IV access. A PICC line was placed. Dr. Chao Adams with Infectious Disease was consulted. She was started on Diflucan, Maxipime, Septra DS and nystatin swish and swallow, supplemental O2 and bronchodilators. We will place her in a private room, given her immunocompromise. PAST MEDICAL HISTORY: 1. HIV/AIDS. 2. Depression. 3. COPD, on home O2. 4. Medical noncompliance. 5. Substance abuse in the past; however, toxicology screen is negative. 6. Hearing impaired. 7. Recent history of atypical pneumonia as well as esophageal candidiasis and odynophagia, secondary to severe oropharyngoesophageal candidiasis. PAST SURGICAL HISTORY: Cholecystectomy, appendectomy and ORIF to the left arm. SOCIAL HISTORY: Tobacco abuse. History of substance abuse. Denies alcohol. FAMILY HISTORY: Noncontributory. ALLERGIES: No known drug allergies. MEDICATIONS: Last known home medications: 1. Spiriva. 2. Phenergan. 3. Nicotine patch. 4. Bactrim DS. 5. Fluconazole. 6. Levaquin. 7. Nystatin. 8. Erythromycin. 9. Iron. REVIEW OF SYSTEMS: Twelve-point review of systems completed and negative except for those mentioned in HPI. PHYSICAL EXAMINATION: VITAL SIGNS: Temperature is 99.3 degrees, heart rate 108, respirations 20, blood pressure 120/71, O2 is 92% on 2 L nasal cannula. GENERAL: Ms. Cordoba is an ill-appearing 54-year-old female who is lying on her left side on the stretcher, with continuous coughing but in no acute distress. HEENT: Atraumatic, normocephalic. PERRL. She does have oral thrush. CARDIOVASCULAR: S1, S2 appreciated. No murmurs, gallops or rubs noted. RESPIRATORY: Lung sounds decreased throughout all lung carpio. Could not appreciate any rales, rhonchi or wheezes. GASTROINTESTINAL: Flat, soft, nontender, nondistended. Positive bowel sounds in 4 quadrants. EXTREMITIES: Lower extremities are negative for edema. NEUROLOGIC: No obvious focal deficits noted. DIAGNOSTIC DATA: 1. Head CT: Chronic-appearing white matter changes. No definite acute intracranial pathology. Bilateral mastoid air cell effusions and maxillary and ethmoid sinus mucosal disease. 2. Chest x-ray: Interval development of patchy infiltrates. 3. EKG: Sinus tachycardia with right atrial enlargement, ST and T-wave abnormality, consider lateral ischemia. LABORATORY DATA: White count 1, hemoglobin and hematocrit 10 and 31, platelet count is 220,000, neutrophils 0.94. Chemistry: Sodium 138, potassium 3.2, carbon dioxide 21, BUN 19, creatinine 0.6, blood glucose is 87. Troponin 0.011. Albumin 3.6. Plasma lactate 0.8. Toxicology screen was negative. ASSESSMENT AND PLAN: 1. Atypical pneumonia. We will try to obtain a sputum culture. Dr. Adams is on board. He has initiated Septra DS and cefepime. 2. Severe oral thrush. We will continue with Diflucan and nystatin swish and swallow 4 times a day. 3. Acquired immunodeficiency syndrome. Her last CD4 counts were low. We will continue with Infectious Disease and follow their recommendations. 4. Chronic obstructive pulmonary disease. We will continue home oxygen. Does not appear to be in exacerbation. 5. Severe protein-calorie malnutrition. We will need to continue with nutritional supplements as well as a dietary consult. 6. Impaired hearing. Aware. 7. Polysubstance abuse in the past. Aware. Toxicology screen is currently negative. 8. Tobacco abuse. Aware. 9. Further recommendations to follow physician evaluation, laboratory and diagnostic data. 10. Consider Palliative Care consult and continue talks with code status, to consider home with hospice if possible. Dictated by MADHAVI Faulkner for Daniel Licea MD cc: Daniel Licea MD
[2019-07-30] MEDS ORDERED: NS 500 ML IV ONE ×2 (19:54→23:22)
[2019-07-30] MEDS ORDERED: ADENOCARD IV ONE (20:00)
[2019-07-30] MEDS ORDERED: LOPRESSOR ONE (20:04)
--- NOTE | 2019-07-30 20:23 | HISTORY AND PHYSICAL ---
Patient seen and examined by me [id number]. All the laboratory, vital signs, and images were reviewed. This patient has been recently discharged on 07/21/2019 due to oropharyngeal esophageal candidiasis, severe COPD with mild exacerbation, severe AIDS with an absolute CD4 count of 4, polysubstance use and abuse with urine toxicology positive for amphetamine, methamphetamine, cocaine, and cannabinoids, possible pneumonia. She is coming for worsening shortness of breath and odynophagia. As per the family member, which is not at the bedside at this moment, but apparently in the emergency department, said that she has been compliant with her medications, and as per the patient she has been taking her medications as prescribed. She has a severe oral thrush. She is tachycardic. As per the patient, she has been having some increase of temperature, but is not documented. Kidney function seems to be stable, even though she looks a little bit dehydrated. Infectious Disease Department was consulted and she has been placed on cefepime, fluconazole, and Bactrim. Also, she will receive fluids, but because of her severe protein-calorie malnutrition, I believe 3 L is too much for her. She has a body mass index of 12.1. I will give her 1 L at 150 mL/h, and then I will continue with 75 mL/h, and hopefully tomorrow I will change it depending on her lab work and physical exam. Her plasma lactate is negative at 0.8 in both chemistry and also ABGs. Chest x-ray showed interval development of patchy infiltrates. I talked to her about her whole situation. We discussed about Advanced Directive. She is completely awake, alert, and oriented x3. We discussed her whole condition for about 50 minutes, and she has decided to be Full Code, even though if she has a cardiopulmonary arrest, the probability of survival is extremely low. cc: Daniel Licea MD
--- NOTE | 2019-07-30 20:49 | INFECTIOUS DISEASE PROGRESS NO ---
DATE: 07/30/2019 PRESENT ILLNESS: Ms. Ahumada was recently discharged after being treated for a Pseudomonas pneumonia. She is an HIV patient who is medically noncompliant. She was also being treated for a severe oral and esophageal thrush with dysphagia. She comes back with the same issues after not continuing the medications as ordered. At this point, we are treating her for pneumonia as seen on chest x-ray, sinusitis and possible mastoiditis as seen on head CT, and oral and esophageal candidiasis. MEDICATIONS: She was sent home with Levaquin 500 mg by mouth daily, fluconazole 200 mg by mouth daily, oral Bactrim, and nystatin swish and swallow. She is also supposed to continue her Triumeq as provided by the [facility]. 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 PHYSICAL EXAMINATION: Vital Signs: Temperature is 99.3 degrees, pulse rate 111, respiratory rate 22, blood pressure 191/65, O2 saturation is 94% on 2 L nasal cannula. General: This is a chronically ill-appearing middle-aged female. She is lying in bed, currently in no acute distress. HEENT: Atraumatic, normocephalic. Oral mucous membranes have a thick white coating to the tongue and oral vestibule. Conjunctivae are pale. Neck: Supple. Trachea is midline. Cardiovascular: Heart rate and rhythm are regular and fast, sinus tachycardia on the monitor. Respiratory: Lung sounds are clear in the upper lobes, diminished in the mid and bases. Abdomen: Soft, flat, nontender. Bowel sounds are active. Integumentary: Skin is warm and dry with a PICC line in place to the right upper arm. That site is without edema, erythema, or drainage. Neurologic: She is awake, alert, and forgetful. Following commands appropriately. DIAGNOSTIC STUDIES: Today her white count is 1.82, absolute neutrophil count is 0.94. On 4 L nasal cannula, her pH is 7.48, pCO2 of 32, PO2 of 80, HCO3 of 25.5. Creatinine is 0.6, estimated GFR is greater than 60, total bilirubin 0.74, AST 17, ALT 13, alkaline phosphatase 98, creatine kinase 9. On her urinalysis, there was no bacteria and less than 10 WBCs. Blood cultures have been drawn and are pending. Her flu swab was negative. Head CT shows bilateral mastoid air cell effusions and maxillary and ethmoid sinus mucosal disease. The chest x-ray from today shows interval development of patchy infiltrates. ASSESSMENT AND PLAN: Ms Ahumada recently was sent home after an admission for a pretty severe oral and esophageal thrush with dysphagia, as well as pneumonia. At that time, she had a absolute CD4 count of 4 and was not taking her HIV med, Triumeq. After a course of micafungin and getting her back on her Triumeq and antibiotics, she started to feel better, so we sent her home with oral Levaquin, fluconazole, Bactrim, and nystatin. 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 When questioning the patient, she states that she did take her medications, but she does have some confusion. We put her back on Triumeq on the last admission; however, this time, because she has not been taking it at home, we will not restart her, due to the possible development of resistance. There is a pneumonia as well as a sinusitis and possible mastoiditis, so we will treat her using IV vancomycin per Pharmacy dosing, cefepime 1 g IV every 8 hours. We will also give her Bactrim 1 by mouth every 8 hours for the possibility of Pneumocystis pneumonia. For the thrush, we will give her fluconazole 200 mg by mouth daily and nystatin swish and swallow. These plans have been discussed with and recommended by Dr. Adams. COMORBIDITIES: 1. Protein-calorie malnutrition. 2. Medical compliance. 3. Acquired immunodeficiency syndrome. 4. Chronic obstructive pulmonary disease. 5. Drug abuse. 6. Cigarette smoking. Dictated by MADHAVI Owens for Chao Adams MD cc: Chao Adams MD [facility]ENTER[facility]annon
--- NOTE | 2019-07-30 20:50 | EKG Report ---
Test Performed on : 07/30/2019 8:00:15 PM Test Reason : svt Blood Pressure : / mmHG Vent. Rate : 110 BPM Atrial Rate : 110 BPM P-R Int : 130 ms QRS Dur : 088 ms QT Int : 334 ms P-R-T Axes : 080 065 085 degrees QTc Int : 452 ms Sinus tachycardia. Otherwise normal ECG When compared with ECG of 30-JUL-2019 06:34, (Unconfirmed) T wave inversion no longer evident in Inferior leads Unconfirmed Result
[2019-07-30] MEDS: TYLENOL PO PRN (23:12)
[2019-07-31] MEDS: SEPTRA DS PO SCH ×4 (05:31→22:41)
[2019-07-31] MEDS: NS 1,000 ML IV SCH (05:31)
[2019-07-31] MEDS: MAXIPIME 1 GM in NS 50 ML IV SCH ×3 (05:31→22:41)
[2019-07-31 06:07] LABS: EOS# 0.03 X1000 (0.0-0.7); EOS% 1.8 % (0.0-10.0); HEMATOCRIT 28.4 % (37.0-47.0); HEMOGLOBIN 8.8 g/dL (12.0-16.0); IMM GRAN% 12.3 % (0.0-0.5); LYMPH# 0.19 X1000 (1.2-3.4); LYMPH% 11.7 % (20.5-51.1); MCH 28.9 PG (27-31); MCV 93.1 FL (81-99); MONO# 0.29 X1000 (0.11-0.59); MONO% 17.8 % (1.7-9.3); MPV 9.4 FL (7.4-10.4); NEUT# 0.92 X1000 (1.4-6.5); NEUT% 56.4 % (42.2-75.2); PLT 165 X1000 (130-400); RBC 3.05 XMIL (4.2-5.4); RDW 17.1 % (11.5-14.5); WBC 1.63 X1000 (4.8-10.8)
[2019-07-31 06:13] LABS: AGAP 14; ALB/GLOB RATIO 0.9; ALBUMIN 2.6 g/dL (3.5-5.0); ALKALINE PHOSPHATASE 78 U/L (32-104); BUN 14 mg/dL (8-22); CALCIUM 7.8 mg/dL (8.8-10.2); CHLORIDE 110 mmol/L (98-107); COSMO 284; CREATININE 0.6 mg/dL (0.5-0.9); ESTIMATED GFR > 60; GLUCOSE 80 mg/dL (70-104); GOT 12 U/L (10-30); GPT 9 U/L (10-36); POTASSIUM 3.2 mmol/L (3.5-5.1); SODIUM 143 mmol/L (136-145); TCO2 19 mmol/L (25-35); TOTAL BILIRUBIN 0.52 mg/dL (0.20-1.00); TOTAL PROTEIN 5.5 g/dL (6.3-8.3)
[2019-07-31] MEDS: DUONEB (A & A) INH SCH ×6 (06:27→22:56)
[2019-07-31 06:54] LABS: LYMPHS 8 % (21-51); MONO 20 % (1-9); SEGS 72 % (42-75)
--- NOTE | 2019-07-31 07:36 | Diag Imaging Result Doc PS360 ---
EXAM: CHEST-PORTABLE INDICATION: Pneumonia TECHNIQUE: One view COMPARISON: 07/30/2019 FINDINGS: There has been interval placement of a right PICC line. The tip projecting over the lower SVC near the atriocaval junction in the expected position. Increased interstitial markings at the mid and lower lung zones are unchanged. No new consolidation is identified. Cardiac silhouette is stable. IMPRESSION: Interval placement of right PICC line in the expected position. Stable chest, otherwise. Electronically signed by Audie Cardozo 07/31/2019 7:33 AM
[2019-07-31] MEDS ORDERED: VANCOMYCIN IV PER PHARMACY MISC SCH (08:15)
[2019-07-31] MEDS: DIFLUCAN PO SCH (08:34)
[2019-07-31] MEDS: MYCOSTATIN SUSP PO SCH ×4 (08:51→20:11)
[2019-07-31] MEDS: 1/2 NS 1,000 ML IV SCH ×2 (08:51→21:38)
[2019-07-31] MEDS: HEPARIN SUBQ SCH ×2 (08:51→20:10)
--- NOTE | 2019-07-31 10:20 | PROGRESS NOTE ---
DATE: 07/31/2019 SUBJECTIVE: The patient is resting comfortably in bed. She is not complaining of chest pain or shortness of breath. She seems to be a little confused. She is oriented to person, date of and year. She does not know the name of this place. She is following commands and she is eating slowly by herself. Yesterday this patient had an episode of supraventricular tachycardia, reverted with adenosine. At this moment she is in sinus rhythm. She has been on IV fluids and, like I said, at this moment she is eating by herself slowly. She is still coughing and having some odynophagia, but compared with yesterday, this seems to be a little bit better. OBJECTIVE: Vital Signs: Temperature 100, pulse 101, respiratory rate 25, blood pressure 91/59, oxygen saturation 97% on 2 L of nasal cannula. HEENT: Head normocephalic. No trauma. PERRLA. She does have a thick white plague/coating on her mouth and tongue. Neck: Supple. No JVD. Central trachea. Cardiovascular: Regular rate and rhythm, slightly tachycardic. Chest: Coarse breath sounds bilaterally and decreased breath sounds at the bases. Abdomen: Soft. Positive bowel sounds. Extremities: No edema, no clubbing, no cyanosis. PICC line at the level of the right upper arm. I do not see any signs of infection in that area. Neurological: This patient is awake, alert. She is following commands. She is oriented x2. She is not oriented to place. LABORATORY: WBC 1.6, hemoglobin 8.8, hematocrit 28.4, platelets 165,000. Sodium 143, potassium 3.2, chloride 110, bicarbonate 19, BUN 14, creatinine 0.6, glucose 80, calcium 7.8, AST 12, ALT 9, alkaline phosphatase 78, albumin 2.6. ASSESSMENT AND PLAN: 1. Severe oral and esophageal thrush with dysphagia. This patient has been placed on Diflucan and also Nystatin. This has been recommended by Infectious Disease Department in his note. I will continue with same management. She seems to be feeling a little bit better and actually at this moment she is eating slowly and the pain is a little bit better compared with yesterday. 2. Pneumonia. This patient also has been evaluated by Infectious Disease Department and placed on cefepime, Septra, and vancomycin. We will continue with same management as well as breathing treatment as scheduled and as needed. 3. History of chronic obstructive pulmonary disease. This patient is not wheezing at this moment. Continue with breathing treatment and antibiotics. 4. Episode of supraventricular tachycardia yesterday night, resolved after a dose of adenosine, now in sinus rhythm. We will continue to monitor this patient in the ICU. 5. Human immunodeficiency virus. Continue with same management. Infectious Disease Department on board. As per the patient she has been taking her medications as prescribed. 6. Severe cachexia/protein calorie malnutrition. She is eating at this moment a little bit. I have consulted the kennel staff member. Probably we will start this patient also on TPN until she is able to eat more, but I will wait for their recommendations. 7. History of tobacco use. This patient has been highly advised against tobacco use. I will continue with daily cessation education. 8. History of drug use and abuse. Aware. Urine toxicology is negative. 9. Deep vein thrombosis prophylaxis. I will put this patient on heparin subcutaneously. 10. Hypokalemia. I will replace the potassium. cc: Daniel Licea MD
--- NOTE | 2019-07-31 14:02 | INFECTIOUS DISEASE PROGRESS NO ---
DATE: 07/31/2019 PRESENT ILLNESS: The patient has recently been in the hospital, and she was treated for a variety of infections and her HIV treatment, but when she was discharged and went home, she never picked up her medications. So, she may well have the infection she had during the last admission. The patient has pneumonia, which most likely is due to Pseudomonas. She has HIV infection. She has oral candidiasis and esophageal candidiasis. She is admitted now with bilateral patchy infiltrates and pansinusitis. MEDICATIONS: The patient is receiving the following medications: IV cefepime, p.o. fluconazole and p.o. trimethoprim sulfamethoxazole. PHYSICAL EXAMINATION: Vital Signs: Temperature is 101.8 degrees, pulse 101, respirations 25, blood pressure 91/59. General: This is a chronically ill and malnourished, middle-aged female. She does not appear to be in any acute distress. Head/eyes/ears/nose/throat: She can hear my spoken words and see near objects. She has white patches on her tongue. Neck: No meningismus. Lungs: Bilateral rhonchi. Cardiovascular: Heart rate is regular. Abdomen: Soft and was not tender. Neurologic: The patient was sleeping, but she is arousable. She can move her extremities. There is no tremor. Bones, joints, muscles: There is almost complete muscle loss. Integument: No rash noted. LAB AND RADIOLOGY: CBC-WBC 1.63, hgb 8.8, platelets 165K. Creatinine-0.6. GFR- >60. Chest [id number] interstitial markings. ASSESSMENT AND PLAN: The patient has bilateral pneumonia and pansinusitis. She is on cefepime and Septra. I am going to go ahead and add vancomycin. The patient has human immunodeficiency virus, but I am not going to restart her on anti-retroviral therapy because she does not take it at home, and I think by starting it on her in the hospital and then her not continuing at home, I think that there would be a high likelihood that the patient's human immunodeficiency virus organisms will become resistant to the anti-retroviral therapy. Some of the side effects of vancomycin, cefepime, Septra and fluconazole including some of the side effects of the patient's antibiotic therapy consisting of cefepime, fluconazole Septra and soon to be vancomycin are rash, diarrhea, liver toxicity, renal toxicity, ototoxicity and photosensitivity have been explained to the patient. She agreed to treatment. COMORBIDITIES: The patient is very noncompliant with her medications, and she appears to be very malnourished and she has multiple infections. cc: Chao Adams MD MTDD
[2019-07-31 16:02] LABS: MAGNESIUM 1.7 mg/dL (1.5-2.7); PHOSPHORUS 3.4 mg/dL (2.7-4.5)
[2019-07-31] MEDS ORDERED: D10W 1,000 ML IV PRN (18:00)
[2019-07-31] MEDS ORDERED: TPN ELECTROLYTES 20 ML, MAGNESIUM SULFATE 5 MEQ, POTASSIUM PHOSPHATE 15 MMOL, M.V.I.-12... IV SCH ×8 (18:00)
[2019-07-31] MEDS: LIPOSYN 20% 250 ML IV SCH (18:10)
[2019-08-01] MEDS: VANCOMYCIN 1 GM/NS 1 GM/250 ML IVPB IV SCH (00:08)
[2019-08-01] MEDS: DUONEB (A & A) INH SCH ×6 (03:25→23:01)
[2019-08-01] MEDS: MAXIPIME 1 GM in NS 50 ML IV SCH ×3 (05:50→21:19)
[2019-08-01] MEDS: SEPTRA DS PO SCH ×3 (05:50→21:19)
[2019-08-01 06:17] LABS: EOS# 0.03 X1000 (0.0-0.7); EOS% 4.3 % (0.0-10.0); HEMOGLOBIN 7.9 g/dL (12.0-16.0); IMM GRAN% 14.5 % (0.0-0.5); LYMPH# 0.14 X1000 (1.2-3.4); LYMPH% 20.3 % (20.5-51.1); MCH 29.3 PG (27-31); MCHC 31.6 g/dL (33-37); MCV 92.6 FL (81-99); MONO# 0.14 X1000 (0.11-0.59); MONO% 20.3 % (1.7-9.3); MPV 9.1 FL (7.4-10.4); NEUT% 40.6 % (42.2-75.2); PLT 125 X1000 (130-400); RDW 16.7 % (11.5-14.5); WBC 0.69 X1000 (4.8-10.8)
[2019-08-01 06:27] LABS: NEUT# 0.28 X1000 (1.4-6.5)
[2019-08-01 06:41] LABS: AGAP 13; BUN 10 mg/dL (8-22); CALCIUM 7.8 mg/dL (8.8-10.2); CHLORIDE 106 mmol/L (98-107); COSMO 274; CREATININE 0.5 mg/dL (0.5-0.9); ESTIMATED GFR > 60; GLUCOSE 92 mg/dL (70-104); MAGNESIUM 1.7 mg/dL (1.5-2.7); PHOSPHORUS 2.4 mg/dL (2.7-4.5); POTASSIUM 3.1 mmol/L (3.5-5.1); SODIUM 138 mmol/L (136-145); TCO2 19 mmol/L (25-35)
--- NOTE | 2019-08-01 07:41 | Diag Imaging Result Doc PS360 ---
EXAM: CHEST-1 VIEW INDICATION: pneumonia TECHNIQUE: One view COMPARISON: 07/31/2019 FINDINGS: Right PICC line is in stable position. Increased interstitial markings at the lower lung zones are stable. However, there is increasing focal airspace opacity at the left lung base suggesting worsening pneumonia. No other new consolidation is identified. Cardiac silhouette is stable. IMPRESSION: Slight worsening of opacity at the left lung base. Electronically signed by Audie Cardozo 08/01/2019 7:39 AM
[2019-08-01 08:14] LABS: PREALBUMIN 4.2 mg/dL (20-40)
[2019-08-01] MEDS: HEPARIN SUBQ SCH ×2 (10:04→21:19)
[2019-08-01] MEDS: DIFLUCAN PO SCH (10:05)
[2019-08-01] MEDS: MYCOSTATIN SUSP PO SCH ×4 (10:05→21:19)
[2019-08-01] MEDS: 1/2 NS 1,000 ML IV SCH (12:31)
--- NOTE | 2019-08-01 14:25 | INFECTIOUS DISEASE PROGRESS NO ---
DATE: 08/01/2019 PRESENT ILLNESS: The patient has HIV Infection which is far advanced. She also has pneumonia which most likely is due to pseudomonas which she was recently in the hospital with. She also has oral candidiasis and esophageal candidiasis. In addition, the patient also has pansinusitis. MEDICATIONS: This is day number 2 of the following antimicrobial agents: Cefepime, vancomycin IV, p.o. Septra, and nystatin swish and swallow. OBJECTIVE: Vital signs: Temperature is 98.2, pulse 104, respirations 24, blood pressure 83/44. General: This is a chronically ill and cachectic appearing middle-aged female. She, today, does not seem to be in any acute distress, however. HEENT: She can hear my spoken words and see near objects. She still does have white patches on her tongue. Neck: No pain with movement. Lungs: Clear to auscultation. Cardiovascular: Heart rate is regular. Abdomen: Soft and not tender. Neurologic: The patient today is more alert. She can move her extremities, but she is very weak. There is no tremor. The patient finally admitted today that she was not taking her medications when she was discharged last time from the hospital, and she further told me that many other times, she does not take her medications, either. PLAN: Continue the current antimicrobial agents, and also we stressed the importance of her taking her medication as prescribed. COMORBIDITIES: The patient is very noncompliant with her medications. She seems to be very malnourished and has multiple infections. cc: Chao Adams MD
[2019-08-01] MEDS ORDERED: KLOR-CON PO ONE (15:55)
[2019-08-01] MEDS ORDERED: POTASSIUM CHLORIDE 20% LIQUID PO ONE (15:56)
--- NOTE | 2019-08-01 16:27 | PROGRESS NOTE ---
DATE: 08/01/2019 SUBJECTIVE: The patient is resting comfortably in bed. She seems to be confused on and off. She knows she is in the hospital, but she believes this hospital is located at [place]. She is not oriented to time. She is following commands. She is not agitated. She is not complaining of chest pain, shortness of breath and she is able to eat her food. OBJECTIVE: Vital Signs: Temperature 97.7 degrees, pulse 103, respiratory rate 22, blood pressure 94/65, oxygen saturation 95% on 4 L of nasal cannula. HEENT: Head normocephalic, no trauma. PERRLA. She does have a thick white plaque/coating on her mouth and tongue. Neck: Supple. No JVD. Central trachea. Cardiovascular: Slightly tachycardic. Chest: Coarse breath sounds bilaterally. Decreased breath sounds at the bases with some crepitus. Abdomen: Soft. Positive bowel sounds. Extremities: No edema. No clubbing. No cyanosis. Decreased muscle mass. Neurological: This patient is awake, alert. She is following commands. She is oriented x2, but she knows she is in the hospital but she does not know the place, she is awake. LABORATORY: WBC 0.6, hemoglobin 7.9, hematocrit 25, platelets 125,000, neutrophil count low at 40.6. Sodium 138, potassium 3.1, chloride 106, bicarbonate 19, BUN 10, creatinine 0.5, glucose 92, calcium 7.8, phosphorus 2.4, magnesium 1.7. ASSESSMENT AND PLAN: 1. Severe oral and esophageal thrush with dysphagia, she seems to be feeling better. She is swallowing better. She is tolerating orals. We will continue with the same management. 2. Pneumonia, continue with antibiotics. Infectious Disease on board. 3. Pansinusitis, aware. Continue with same treatment. 4. Pancytopenia, we will monitor this patient closely. She has been placed on isolation. 5. History of chronic obstructive pulmonary disease, this patient is still smoking, continue with breathing treatment and antibiotics. 6. Episode of supraventricular tachycardia two days ago, resolved after a dose of adenosine, now on sinus rhythm. Continue with the same treatment. 7. Human immunodeficiency virus. Continue with same management. Infectious Disease Department on board. As per the patient she has been taking her medications as prescribed. 8. Severe cachexia/protein-calorie malnutrition. She is eating at this moment. She is tolerating food better, and she is on total parenteral nutrition. We will continue with same management. Once this patient is eating much better, I will stop the total parenteral nutrition. 9. History of tobacco use. This patient has been highly advised against tobacco use. I also talked to her about it and he has been trying to talk to her so she can stop smoking as well. 10. History of drug use and abuse aware. Urine toxicology is negative. 11. Deep vein thrombosis prophylaxis. I put this patient on heparin subcutaneously, which I will stop if the platelet count drops even more. 12. Hypokalemia. I will replace the potassium again. cc: Daniel Licea MD
[2019-08-01] MEDS: LIPOSYN 20% 250 ML IV SCH (16:42)
[2019-08-01] MEDS: MAGNESIUM SULFATE IV SCH ×10 (18:02)
[2019-08-01] MEDS: TPN ELECTROLYTES IV SCH ×10 (18:02)
[2019-08-01] MEDS: [UNRECOGNIZED DRUG - OTHER] IV SCH ×10 (18:02)
[2019-08-01] MEDS: POTASSIUM CHLORIDE IV SCH ×10 (18:02)
[2019-08-02] MEDS: DUONEB (A & A) INH SCH ×6 (03:30→22:40)
[2019-08-02] MEDS: 1/2 NS 1,000 ML IV SCH (04:02)
[2019-08-02] MEDS: SEPTRA DS PO SCH ×4 (05:20→23:01)
[2019-08-02] MEDS: MAXIPIME 1 GM in NS 50 ML IV SCH ×3 (05:20→22:00)
[2019-08-02 07:38] LABS: EOS# 0.01 X1000 (0.0-0.7); EOS% 1.7 % (0.0-10.0); HEMATOCRIT 26.6 % (37.0-47.0); HEMOGLOBIN 8.4 g/dL (12.0-16.0); IMM GRAN# 0.05 X1000 (0.0-0.04); IMM GRAN% 8.6 % (0.0-0.5); LYMPH# 0.17 X1000 (1.2-3.4); LYMPH% 29.3 % (20.5-51.1); MCH 29.5 PG (27-31); MCHC 31.6 g/dL (33-37); MCV 93.3 FL (81-99); MONO# 0.13 X1000 (0.11-0.59); MONO% 22.4 % (1.7-9.3); MPV 9.2 FL (7.4-10.4); PLT 124 X1000 (130-400); RBC 2.85 XMIL (4.2-5.4); RDW 16.8 % (11.5-14.5); WBC 0.58 X1000 (4.8-10.8)
[2019-08-02 07:39] LABS: NEUT# 0.22 X1000 (1.4-6.5)
[2019-08-02 07:55] LABS: MAGNESIUM 1.9 mg/dL (1.5-2.7); PHOSPHORUS 2.8 mg/dL (2.7-4.5)
[2019-08-02 07:58] LABS: LYMPHS 20 % (21-51); MONO 20 % (1-9)
[2019-08-02 08:02] LABS: AGAP 13; BUN 7 mg/dL (8-22); CHLORIDE 106 mmol/L (98-107); COSMO 272; CREATININE 0.5 mg/dL (0.5-0.9); ESTIMATED GFR > 60; GLUCOSE 76 mg/dL (70-104); POTASSIUM 3.7 mmol/L (3.5-5.1); SODIUM 138 mmol/L (136-145); TCO2 19 mmol/L (25-35)
[2019-08-02] MEDS: DIFLUCAN PO SCH (08:24)
[2019-08-02] MEDS: HEPARIN SUBQ SCH ×2 (08:24→20:37)
[2019-08-02] MEDS: MYCOSTATIN SUSP PO SCH ×4 (08:24→20:37)
[2019-08-02] MEDS: VANCOMYCIN 1 GM/NS 1 GM/250 ML IVPB IV SCH (11:29)
--- NOTE | 2019-08-02 12:31 | PROGRESS NOTE ---
DATE: 08/02/2019 SUBJECTIVE: This patient is resting comfortably in bed. Actually, she is sleepy, but arousable. She was able to say her name, date of . She is also oriented to time, but not oriented to place. She is following commands. No focal weakness. She had a low-grade fever yesterday. Pending laboratory today. Since she is eating and now she is getting TPN, I will stop the IV fluids. OBJECTIVE: Vital Signs: Temperature 98.3 degrees, pulse 93, respiratory rate 21, blood pressure 99/58, oxygen saturation 100% on 3 L of nasal cannula. HEENT: Head normocephalic, no trauma. PERRLA. She does have a thick white plaque/coating on her mouth and tongue. Neck: Supple. No JVD. Central trachea. Cardiovascular: Slightly tachycardic on examination. Chest: Coarse breath sounds bilaterally. Decreased breath sounds at the bases with crepitus. Abdomen: Soft. Positive bowel sounds. Extremities: Decreased muscle mass. No clubbing. No cyanosis. No edema. Neurological: This patient is sleepy, but arousable. She is following commands. She is oriented x2. She is not oriented to place. No focal weakness. LABORATORY: Pending at this moment. ASSESSMENT AND PLAN: 1. Severe oral and esophageal thrush with dysphagia. She seems to be feeling better. She is still complaining of a little bit of pain, but not that bad. She is eating some and also she is on TPN. 2. Pneumonia, continue with antibiotics. Infectious Disease on board. 3. Pansinusitis. Continue with treatment. 4. Pancytopenia. We will monitor. She has been placed on isolation. 5. History of chronic obstructive pulmonary disease, this patient is still smoking. Continue with breathing treatment and antibiotics. 6. Episode of supraventricular tachycardia 3 days ago resolve after a dose of adenosine, now on sinus rhythm. Continue with same management. 7. Human immunodeficiency virus. Continue with same treatment. Infectious Disease Department on board. As per the patient she has been taking her medications as prescribed. 8. Severe cachexia/protein-calorie malnutrition. She is eating some food by mouth and also she has been placed on TPN, which I will continue. 9. History of tobacco use. This patient has been highly advised against tobacco use. I will continue with daily cessation education. 10. History of drug use, aware. Urine toxicology is negative though. 11. Deep vein thrombosis prophylaxis. Continue with heparin subcutaneously, which we will stop it if the platelet count drops even more. 12. Hypokalemia has been replaced yesterday, pending lab work today. cc: Daniel Licea MD
[2019-08-02] MEDS: TYLENOL PO PRN (16:19)
[2019-08-02] MEDS: MAGNESIUM SULFATE IV SCH ×10 (18:09)
[2019-08-02] MEDS: POTASSIUM CHLORIDE IV SCH ×10 (18:09)
[2019-08-02] MEDS: [UNRECOGNIZED DRUG - OTHER] IV SCH ×10 (18:09)
[2019-08-02] MEDS: LIPOSYN 20% 250 ML IV SCH (18:09)
[2019-08-02] MEDS: TPN ELECTROLYTES IV SCH ×10 (18:09)
[2019-08-03] MEDS: TYLENOL PO PRN ×2 (02:14→19:47)
[2019-08-03] MEDS: DUONEB (A & A) INH SCH ×6 (05:37→23:18)
[2019-08-03] MEDS: MAXIPIME 1 GM in NS 50 ML IV SCH ×4 (05:45→22:33)
[2019-08-03] MEDS: SEPTRA DS PO SCH ×4 (05:46→22:32)
[2019-08-03 07:30] LABS: AGAP 15; BUN 9 mg/dL (8-22); CALCIUM 7.6 mg/dL (8.8-10.2); CHLORIDE 110 mmol/L (98-107); COSMO 281; CREATININE 0.5 mg/dL (0.5-0.9); ESTIMATED GFR > 60; GLUCOSE 90 mg/dL (70-104); POTASSIUM 4.1 mmol/L (3.5-5.1); SODIUM 142 mmol/L (136-145); TCO2 17 mmol/L (25-35)
[2019-08-03 07:36] LABS: BASO# 0.01 X1000 (0.0-0.2); BASO% 1.5 % (0.0-0.8); EOS# 0.02 X1000 (0.0-0.7); EOS% 2.9 % (0.0-10.0); HEMATOCRIT 26.1 % (37.0-47.0); HEMOGLOBIN 8.1 g/dL (12.0-16.0); LYMPH# 0.23 X1000 (1.2-3.4); LYMPH% 33.8 % (20.5-51.1); MCH 30.1 PG (27-31); MONO# 0.18 X1000 (0.11-0.59); MONO% 26.5 % (1.7-9.3); MPV 9.1 FL (7.4-10.4); NEUT# 0.24 X1000 (1.4-6.5); NEUT% 35.3 % (42.2-75.2); PLT 134 X1000 (130-400); RBC 2.69 XMIL (4.2-5.4); RDW 17.4 % (11.5-14.5); WBC 0.68 X1000 (4.8-10.8)
[2019-08-03 07:41] LABS: MAGNESIUM 2.1 mg/dL (1.5-2.7); PHOSPHORUS 3.6 mg/dL (2.7-4.5)
[2019-08-03 08:21] LABS: ANISOCYTOSIS 1+; BASO 4 % (0-1); EOS 4 % (1-10); LYMPHS 36 % (21-51); MONO 16 % (1-9); SEGS 40 % (42-75)
[2019-08-03] MEDS: MYCOSTATIN SUSP PO SCH ×5 (08:26→22:32)
[2019-08-03] MEDS: DIFLUCAN PO SCH (08:26)
[2019-08-03] MEDS: HEPARIN SUBQ SCH ×3 (08:26→22:32)
--- NOTE | 2019-08-03 09:03 | PROGRESS NOTE ---
DATE: 08/03/2019 SUBJECTIVE: The patient is resting comfortably in bed. She is sleepy, but arousable. She is answering my questions. She is able to say her name and date of . She is not oriented to time. She knows she is in the hospital, but she believes she is in [place]. She is following commands. No focal weakness. Yesterday, she did not have any episodes of fever or low- grade fever. Blood pressure has been stable. We will continue with the same management for now. I had a large conversation with this patient's son, who is the [employer], and her , yesterday in the afternoon. We discussed about all the possibilities and prognosis, which is poor. We will treat this patient for 2 or 3 more days to see how she does to see if she recovers a little bit. We discussed about all the options, and I believe this patient is really weak and her prognosis is poor. I do not think she is taking her medications at home as prescribed either. I discussed with the family for about 30 to 40 minutes, and we will do it again hopefully tomorrow or the day after tomorrow, and Palliative Care probably will be on board. OBJECTIVE: Vital Signs: Temperature 97.6 degrees, pulse 78, respiratory rate 20, blood pressure 121/72, oxygen saturation 99 on 2 L of nasal cannula. HEENT: Head normocephalic. No trauma. PERRLA. She does have a thick white plaque coating her mouth and tongue, but the tongue seems to be better compared with admission. Neck: Supple. No JVD. Central trachea. Cardiovascular: Slightly tachycardic. Chest: Coarse breath sounds with crepitus, mostly at the bases, but it is basically generalized. She has decreased breath sounds at the bases as well. Abdomen: Soft. Positive bowel sounds. Extremities: Decreased muscle mass. No clubbing. No cyanosis. No edema. Neurological: This patient is sleepy, but arousable. She is following commands. She is oriented x1. She knows she is in a hospital, but she believes this hospital is in [place]. She is not oriented to place. I do not see any focal weakness, but she is extremely weak. LABORATORY DATA: WBC 0.6, hemoglobin 8.1, hematocrit 26.1, platelets 134,000. Sodium 142, potassium 4.1, chloride 110, bicarbonate 17, BUN 9, creatinine 0.5, glucose 94, calcium 7.6. Magnesium 2.1, phosphorus 3.6. ASSESSMENT AND PLAN: 1. Severe oral and esophageal thrush with dysphagia. She seems to be better. She is swallowing better, and she is not complaining of too much pain. She is tolerating food. Continue with total parenteral nutrition. 2. Pneumonia. Continue with antibiotics. Infectious Disease Department on board. 3. Pansinusitis. Continue with treatment. 4. Pancytopenia. Will monitor. She has been placed on isolation. Platelet count is better. 5. History of chronic obstructive pulmonary disease, not in exacerbation, but I believe it is quite advanced, and this patient is still smoking. 6. Episode of supraventricular tachycardia 4 days ago, resolved after a dose of adenosine. Aware. 7. Human immunodeficiency virus. Continue with the same management. Infectious Disease Department on board. As per the patient, she has been taking her medications as prescribed. 8. Severe cachexia/protein calorie malnutrition. She is eating a little bit better compared with admission, and also she is on total parenteral nutrition, which I will continue. 9. History of tobacco abuse. This patient has been highly advised against tobacco use. I will continue with daily cessation education. 10. History of drug use. Aware. 11. Deep vein thrombosis prophylaxis. Continue with heparin subcutaneously. 12. Hypokalemia, resolved. 13. Encephalopathy. It could be multifactorial, but I believe it is more related to her infection, likely infectious encephalopathy. We will monitor for now. Overall, this patient has poor prognosis due to her current condition, human immunodeficiency virus status, pneumonia, confusion. She has severe protein calorie malnutrition. She is cachectic. I will be discussing this with the and the son, who is the [employer]. For now, I will continue with the same treatment, but if she does not get better, probably we will get Palliative Care to talk to the family because I do believe she may need hospice at some point. cc: Daniel Licea MD
[2019-08-03] MEDS ORDERED: MORPHINE IV ONE (15:35)
--- NOTE | 2019-08-03 15:58 | Diag Imaging Result Doc PS360 ---
CHEST-PORTABLE - 08/03/2019 INDICATION: SOB COMPARISON: 08/01/2019 FINDINGS: Stable right PICC line in good position. There is been worsening in the right lower lobe infiltrate. Grossly stable left lingular and lower lobe infiltrates. Heart size remains normal. Stable pulmonary vascular congestion. No pneumothorax or pleural effusion. IMPRESSION: Worsening infiltrate in the right lower lobe. Electronically signed by Smith Bryan 08/03/2019 3:55 PM
[2019-08-03] MEDS: LIPOSYN 20% 250 ML IV SCH (17:14)
[2019-08-03] MEDS ORDERED: POTASSIUM CHLORIDE IV SCH ×10 (18:00)
[2019-08-03] MEDS ORDERED: TPN ELECTROLYTES IV SCH ×10 (18:00)
[2019-08-03] MEDS ORDERED: MAGNESIUM SULFATE IV SCH ×10 (18:00)
[2019-08-03] MEDS ORDERED: [UNRECOGNIZED DRUG - OTHER] IV SCH ×10 (18:00)
[2019-08-03] MEDS: TESSALON PO PRN (19:47)
[2019-08-03] MEDS: VANCOMYCIN 1 GM/NS 1 GM/250 ML IVPB IV SCH (23:00)
[2019-08-04] MEDS: TYLENOL PO PRN (04:16)
[2019-08-04] MEDS: TESSALON PO PRN (04:16)
[2019-08-04] MEDS: MAXIPIME 1 GM in NS 50 ML IV SCH ×2 (04:18→05:00)
[2019-08-04] MEDS: SEPTRA DS PO SCH ×2 (05:00→12:13)
[2019-08-04] MEDS: DUONEB (A & A) INH SCH ×6 (06:05→23:45)
[2019-08-04 06:18] LABS: EOS# 0.02 X1000 (0.0-0.7); EOS% 2.6 % (0.0-10.0); HEMATOCRIT 26.4 % (37.0-47.0); IMM GRAN# 0.02 X1000 (0.0-0.04); IMM GRAN% 2.6 % (0.0-0.5); LYMPH# 0.22 X1000 (1.2-3.4); LYMPH% 28.9 % (20.5-51.1); MCH 28.6 PG (27-31); MCHC 30.3 g/dL (33-37); MCV 94.3 FL (81-99); MONO# 0.25 X1000 (0.11-0.59); MONO% 32.9 % (1.7-9.3); MPV 9.4 FL (7.4-10.4); PLT 160 X1000 (130-400); RDW 16.8 % (11.5-14.5); WBC 0.76 X1000 (4.8-10.8)
[2019-08-04 06:23] LABS: AGAP 13; ALB/GLOB RATIO 0.8; ALBUMIN 2.4 g/dL (3.5-5.0); ALKALINE PHOSPHATASE 75 U/L (32-104); BUN 9 mg/dL (8-22); CALCIUM 7.8 mg/dL (8.8-10.2); CHLORIDE 109 mmol/L (98-107); COSMO 279; CREATININE 0.4 mg/dL (0.5-0.9); ESTIMATED GFR > 60; GLUCOSE 83 mg/dL (70-104); GOT 20 U/L (10-30); GPT 11 U/L (10-36); POTASSIUM 3.7 mmol/L (3.5-5.1); SODIUM 141 mmol/L (136-145); TCO2 19 mmol/L (25-35); TOTAL BILIRUBIN 0.18 mg/dL (0.20-1.00); TOTAL PROTEIN 5.3 g/dL (6.3-8.3)
[2019-08-04 06:24] LABS: NEUT# 0.25 X1000 (1.4-6.5)
[2019-08-04 06:36] LABS: PHOSPHORUS 3.2 mg/dL (2.7-4.5)
[2019-08-04 06:53] LABS: ALB/GLOB RATIO 1.1; ALBUMIN 2.6 g/dL (3.5-5.0); DIRECT BILIRUBIN 0.1 mg/dL (0.00-0.20); TOTAL BILIRUBIN 0.18 mg/dL (0.20-1.00)
[2019-08-04] MEDS: MYCOSTATIN SUSP PO SCH ×4 (09:12→21:05)
[2019-08-04] MEDS: HEPARIN SUBQ SCH ×2 (09:12→21:05)
[2019-08-04] MEDS: DIFLUCAN PO SCH (09:12)
[2019-08-04] MEDS ORDERED: MERREM 500 MG in NS 50 ML IV SCH (10:00)
[2019-08-04] MEDS ORDERED: NON-FORMULARY MED PO SCH (10:30)
--- NOTE | 2019-08-04 10:44 | INFECTIOUS DISEASE PROGRESS NO ---
DATE: 08/04/2019 PRESENT ILLNESS: The patient has far advanced HIV infection. She also has pneumonia which, on x- ray today, is looking worse. She has oral candidiasis and esophageal candidiasis. She also has pansinusitis. MEDICATIONS: The patient is on currently cefepime, vancomycin, Septra, and nystatin mouthwash. PHYSICAL EXAMINATION: Vital Signs: Temperature is 98.1 degrees, pulse 98, respirations 21, blood pressure 119/70. General: This is a chronically ill, cachectic, and lethargic-appearing, middle- aged female. She is in no acute distress. Head, Eyes, Ears, Nose, and Throat: She still has some white patches on her tongue. I did not see any drainage coming from the nose or ears. Neck: No pain with movement. Lungs: Clear to auscultation. Cardiovascular: Regular heart rate. Abdomen: Soft, nontender. Neurologic: The patient is lethargic. She can move her extremities but she is quite weak. She does not have a tremor. LABORATORY AND X-RAY: The chest x-ray shows worsening of the right lower lobe infiltrate. Creatinine is 0.4. GFR is greater than 60. CBC shows a white count of 760, hemoglobin 8, platelet count 160,000. ASSESSMENT AND PLAN: The patient has worsening pneumonia. She has a far advanced human immunodeficiency virus infection. She also has oral candidiasis. I am going to discontinue cefepime and replace it with meropenem. I plan to continue fluconazole, vancomycin, nystatin swish and swallow, and Septra. Also, I have asked pharmacy to look up the patient's antiretroviral therapy and to start her on it. COMORBIDITIES: The patient is very noncompliant with her medications. She is malnourished and she has multiple infections, and a very advanced case of HIV infection. cc: Chao Adams MD
--- NOTE | 2019-08-04 11:28 | PROGRESS NOTE ---
DATE: 08/04/2019 SUBJECTIVE: The patient is resting comfortably in bed. She is sleepy, but arousable. She is complaining of generalized pain. She is disoriented. She is not oriented to place, but she is able to say her name, date of . She knows she is in [place], but she does not recognize this room or the hospital. She does not know who I am, even though I have been treating her for the past 5 days. I had a conversation a couple of days ago with her son and about her condition. We talked about the possibility of involving hospice if she does not get better, and I do believe at this point, I am not sure if she is going to get better or not. Actually she is eating less and the x-ray done yesterday showed a bit of worsening of the infiltrate in the right lower lobe. She does have severe weakness, it is really hard for her to stay awake, actually she falls asleep even when she is talking to me. OBJECTIVE: Vital Signs: Temperature 98.1 degrees, pulse 98, respiratory rate 21, blood pressure 118/70, oxygen saturation 93 on nasal cannula. HEENT: Head normocephalic, no trauma. PERRLA. She does have a thick white plaque coating her mouth and tongue, but the tongue seems to be better compared with admission. Neck: Supple. No JVD. Central trachea. Cardiovascular: She is slightly tachycardic. Chest: Coarse breath sounds bilaterally with crepitus mostly at the bases, but is basically generalized. She has decreased breath sounds at the bases as well. Abdomen: Soft. Positive bowel sounds. Extremities: Decreased muscle mass. No clubbing. No cyanosis. Neurological: This patient is sleepy. She is arousable but she falls asleep after a few words right away. She has severe weakness which is generalized. She is oriented x1. She knows she is in [place], but she does not know or recognize this place. She is not oriented to time. LABORATORY DATA: WBC 0.76, hemoglobin 8, hematocrit 26.4, platelets 160,000. Sodium 141, potassium 3.7, chloride 109, bicarbonate 19, BUN 9, creatinine 0.4, glucose 138, calcium 7.8, albumin 2.4. ASSESSMENT AND PLAN: 1. Severe esophageal thrush and dysphagia. She seems to be tolerating p.o., but she is not eating too much, yesterday some bites. She is on TPN. I will continue with same management. 2. Pneumonia. Continue with antibiotics. Infectious Disease on board. 3. Pansinusitis. Continue with same treatment. 4. Pancytopenia. We will monitor. She has been placed on isolation. Platelet count is better though. We will monitor. 5. History of chronic obstructive pulmonary disease, not in exacerbation but I believe it is quite advanced based on the radiological findings and generalized status. This patient is still smoking. 6. Episode of supraventricular tachycardia 4 days ago, resolved after a dose of adenosine. 7. HIV, not well controlled. We will continue with same management. Infectious Disease on board. 8. Severe cachexia/protein calorie malnutrition. For now, we will continue with TPN. She is not eating too much, some bites yesterday. 9. History of tobacco abuse. This patient has been advised against tobacco use. I will continue with daily cessation education. 10. History of drug use. Aware. 11. Deep vein thrombosis prophylaxis. Continue with heparin subcutaneously. 12. Hypokalemia. We will monitor. 13. Encephalopathy, multifactorial, could be related to her infection or related with her general condition as well. Overall, her prognosis is extremely poor due to her current condition, generalized weakness and HIV, pneumonia and confusion. I have requested an evaluation by the palliative care team. This has been already explained to the and the son a couple of days ago. cc: Daniel Licea MD
[2019-08-04] MEDS ORDERED: MORPHINE IV PRN (15:19)
[2019-08-04] MEDS ORDERED: MAGNESIUM SULFATE IV SCH ×10 (18:00)
[2019-08-04] MEDS ORDERED: [UNRECOGNIZED DRUG - OTHER] IV SCH ×10 (18:00)
[2019-08-04] MEDS ORDERED: POTASSIUM CHLORIDE IV SCH ×10 (18:00)
[2019-08-04] MEDS ORDERED: TPN ELECTROLYTES IV SCH ×10 (18:00)
[2019-08-05] MEDS: DUONEB (A & A) INH SCH ×3 (03:44→11:25)
[2019-08-05 08:31] VITALS: BP 119/70
[2019-08-05] MEDS: HEPARIN SUBQ SCH (08:54)
[2019-08-05] MEDS: MYCOSTATIN SUSP PO SCH (08:54)
--- NOTE | 2019-08-06 14:42 | DISCHARGE SUMMARY ---
ADMISSION DATE: 07/30/2019 DISCHARGE DATE: 08/05/2019 DISCHARGE DIAGNOSES: 1. Pneumonia. 2. Severe mouth and esophageal thrush and dysphagia. 3. Pansinusitis. 4. Pancytopenia with mild improvement of the platelet count. 5. History of chronic obstructive pulmonary disease. 6. Episode of supraventricular tachycardia that resolved with adenosine. 7. Human immunodeficiency virus, not controlled. 8. Severe cachexia/protein calorie malnutrition. 9. Encephalopathy, global encephalopathy. 10. Tobacco use and abuse. 11. Hypokalemia. 12. History of drug use. 13. Do not resuscitate level 1. PROCEDURES PERFORMED: 1. Chest x-ray dated 07/30/2019 -impression interval development of patchy infiltrate. 2. Head CT dated 07/30/2019 -impression chronic appearing white matter changes, no definite acute intracranial pathology, bilateral mastoid air cell effusions and maxillary and ethmoid sinus mucosal disease. 3. Chest x-ray dated 07/31/2019- impression interval placement of right PICC line in the expected position, stable chest otherwise. 4. Chest x-ray dated 08/01/2019- impression slight worsening of opacity at the left lung base. 5. Chest x-ray dated 08/03/2019- impression worsening infiltrate in the right lower lobe. HOSPITAL COURSE: A 54-year-old female well-known to our service for HIV/aids, advanced COPD on home O2, tobacco use as well as polysubstance abuse, depression, medical noncompliance, hearing impairment and recent history of atypical pneumonia as well as esophageal candidiasis and odynophagia secondary to severe oropharyngeal candidiasis. At this time she presented to the emergency department secondary to mouth pain and cough as well as chills. She was admitted on 07/30/2019. Workup in the emergency department revealed a leukopenia. Chest x-ray suggests infiltrate/pneumonia, they had a really hard time getting an IV access. A PICC line was placed. Dr. Chao Adams with Infectious Disease Department was consulted and we started this patient on broad-spectrum antibiotics and antifungal medication including Diflucan, Maxipime and Septra DS, nystatin swish and swallow, supplemental oxygen, bronchodilators. She was placed in a private room given her immunocompromise. This patient has severe cachexia and she has a history like I mentioned before of COPD which is quite advanced. She is still smoking even though we have been telling this patient to stop smoking multiple times. On top of that I do believe she has not been taking her medications as prescribed. She improved a little bit her mouth pain and the white plague that she had in her tongue and mouth after starting the treatment with Diflucan here which is the same medication that she was told to take at home. I had a large conversation with the in the ICU. She was placed in the ICU because she had an episode of SVT that resolved with adenosine. During that conversation he explained to me that she was taking her medications, but given her numbers and her medical history of noncompliance, I would I doubt that. He states that probably she was taking just the 1 that he was able to see when he was with her. He is not sure if this patient has been throwing up after taking them. Then the patient was transferred from the ICU to the PVC unit. She became confused and she never recover. She had bouts of shortness of breath and she was better with a low dose of treatment, like low dose of morphine, I had a conversation 3 days ago with the son in front of the room, as well as his father, the son is the power of real estate attorney. He explained to me that when she is at home basically she is laying in bed and doing nothing, I felt the sensation that this patient was basically suffering at home as well. She was not able to eat too much given her current infection and she is severely cachectic. We treated this patient for a couple more days to see if she was able to improve but she did not even though she was tolerating a little bit more p.o. and I placed this patient on TPN before. Her infiltrates were getting worse and she never recovered from the confusion. I consulted palliative care yesterday and an started the palliative care team talked to the son and the and they have decided to take this patient home with Hospice, which I think is appropriate for this patient given her chronic condition, medical noncompliance, severe protein calorie malnutrition, current infection, confusion/encephalopathy. I have recommended to continue with the statin so she can probably eat a little bit more, but the rest of the medications will be provided by the Hospice care. I also gave them a prescription for morphine liquid, continue with breathing treatment, nausea medication and cough medication as well. I have stopped all the antibiotics. Her prognosis is extremely poor. cc: Daniel Licea MD
== END 2019-08-05 14:29 | disposition hospice, home (50) | DRG 974 ==
LOC: ED 06:26 → 3N 13:32 → ICU 22:15 → 2N 07-31 20:56
PROVIDERS: ATTEND Internal Medicine